=== PATIENT | female | born 1945 | race American Indian/Alaskan Native ===

== ENCOUNTER 2016-07-18 21:08 | Inpatient (IN) | payer MEDICARE ==
--- NOTE | 2016-07-18 21:28 | Emergency Department Report ---
Chief Complaint: Wound/Laceration Stated Complaint: BLEEDING FROM PORT Time Seen by Provider: 07/18/16 21:25 - HPI History of Present Illness: 71-year-old female presents today with excessive bleeding/bruising from her vascath site. Patient states that she had it put in today and it was attempted 3 times, she is bleeding from all 3 sites. Patient is currently on heparin. She states the bleeding started post dialysis treatment. Denies nausea, vomiting, chest pain, shortness of breath, abdominal pain. - ROS Review of Systems: Per HPI - Exam Vital Signs: Vital Signs 07/18/16 21:29 Temperature 98.6 F Pulse Rate 90 Respiratory 20 Rate Blood Pressure 132/70 O2 Sat by Pulse 99 Oximetry Physical Exam: General: 71-year-old female in no acute distress. Well-developed, well- nourished. CV: Regular rate and rhythm. No murmurs rubs or gallops. Lungs: Clear to auscultation bilaterally. Bleeding from the vascath site as well as other sites where port insertion was attempted. MSE screening note: Focused history and physical exam performed. Due to findings the following was ordered: ED Disposition for MSE Condition: Stable
[2016-07-18 21:52] LABS: Basophils % (Auto) 1.3 % (0.0-1.8); Eosinophils % (Auto) 2.2 % (0.0-4.3); Hematocrit 27.8 % (30.3-42.9); Hemoglobin 9.1 gm/dl (10.1-14.3); Mean Corpuscular HGB Conc 33 % (30-34); Mean Corpuscular Volume 73 fl (79-97); Platelet Count 223 K/mm3 (140-440); Red Blood Count 3.82 M/mm3 (3.65-5.03); White Blood Count 7.8 K/mm3 (4.5-11.0)
[2016-07-18 21:54] LABS: Mean Corpuscular Hemoglobin 24 pg (28-32)
[2016-07-18 21:59] LABS: INR 1.3 (0.87-1.13)
--- NOTE | 2016-07-18 22:22 | Emergency Department Report ---
HPI - General Chief Complaint: Wound/Laceration Time Seen by Provider: 07/18/16 21:25 - HPI HPI: This is a 71-year-old Afro-[place] female presents emergency department from hemodialysis with complaint of bleeding from the Vas-Cath and chest. The patient has a chest port that was placed today and previously had a port higher up in the neck that was removed today. Patient had full dialysis but began bleeding from both of these areas and has been bleeding since despite allegedly holding pressure. The patient is on heparin. She denies any chest pain, shortness breath, nausea, vomiting or fever. She has a history of insulin dependent diabetes, hypertension, chronic kidney disease on hemodialysis and coronary artery disease with stents. Her primary care doctor is Dr. Greg Newby, her beauty therapist is Dr. Beaver and her research program intern is through [place]. ED Past Medical Hx - Past Medical History Hx Hypertension: Yes Hx Diabetes: Yes Hx Renal Disease: Yes (vascath right cw,HD) Additional medical history: stents,pacemaker - Surgical History Hx Pacemaker: Yes - Social History Smoking Status: Never Smoker Substance Use Type: None ED Review of Systems ROS: Stated complaint: BLEEDING FROM PORT Other details as noted in HPI Comment: All other systems reviewed and negative Constitutional: denies: chills, fever Eyes: denies: eye pain, eye discharge, vision change ENT: denies: ear pain, throat pain Respiratory: denies: cough, shortness of breath, wheezing Cardiovascular: denies: chest pain, palpitations Gastrointestinal: denies: abdominal pain, nausea, diarrhea Genitourinary: denies: urgency, dysuria, discharge Musculoskeletal: denies: back pain, joint swelling, arthralgia Skin: denies: rash, lesions Neurological: denies: headache, weakness, paresthesias Hematological/Lymphatic: easy bleeding. denies: swollen glands Physical Exam - Physical Exam Vital Signs: Vital Signs 07/18/16 21:29 Temperature 98.6 F Pulse Rate 90 Respiratory 20 Rate Blood Pressure 132/70 O2 Sat by Pulse 99 Oximetry Physical Exam: GENERAL: The patient is well-developed well-nourished. HEENT: Normocephalic. Atraumatic. Extraocular motions are intact. Patient has moist mucous membranes. Pupils equal reactive to light bilaterally. NECK: Supple. Trachea is midline. CHEST/LUNGS: Clear to auscultation. There is no respiratory distress noted. There is a vascular catheter in the right upper chest. HEART/CARDIOVASCULAR: Regular. There is no tachycardia. There is no gallop rub or murmur. ABDOMEN: Abdomen is soft, nontender. Patient has normal bowel sounds. There is no abdominal distention. SKIN: There is a sutured incision/wound to the right upper chest at the base of the neck from previous tunneled IJ Vas-Cath and there is constant oozing of venous blood. There is some oozing of venous blood from around the chest vascular catheter. There is also a very small opening just superior to the vascular catheter that also has some venous oozing of blood. NEURO: The patient is awake, alert, and oriented. The patient is cooperative. The patient has no focal neurologic deficits. The patient has normal speech. MUSCULOSKELETAL: There is no tenderness or deformity. There is no limitation range of motion. There is no evidence of acute injury. ED Course Vital Signs 07/18/16 21:29 Temperature 98.6 F Pulse Rate 90 Respiratory 20 Rate Blood Pressure 132/70 O2 Sat by Pulse 99 Oximetry ED Medical Decision Making - Lab Data Result diagrams: 07/18/16 21:38 07/18/16 21:38 - Radiology Data Radiology results: image reviewed interpreted by me: Chest x-ray did not show any acute process. Heart is normal shape and size. No effusions. No pneumothorax. No signs of pneumonia seen. - Medical Decision Making 71-year-old female presents the emergency department with bleeding from 2-3 different sites of the chest, including around her current chest port, and her previous Vas-Cath that was removed today. This been going on since the patient had dialysis earlier in the afternoon. Patient's hemoglobin is 9.1. Patient has a elevated PTT of 157. The patient received a dose of heparin earlier today. The patient is also on aspirin and Effient but has normal platelet count. She is not on any other blood thinners. It is unknown whether it was the heparin given prior to dialysis or heparin that was given after the Vas- Cath was placed. The Vas-Cath was placed by a vascular physician at the access Center. We tried stopping the bleeding by holding pressure for close to one hour however it still continues to use and so through the pads. Patient was given a 20 mg dose of heparin which was done assuming that it was a 2-3000 unit dose of heparin given for dialysis. When this did not work the patient had hemostat pad placed under an abdominal pad and a second 30 mg dose heparin was infused. Patient continues to have oozing of blood and will be admitted to hospital for further evaluation and possibly vascular consultation. Accepted for admission by the hospitalist. Critical Care Time: No Critical care attestation.: If time is entered above; I have spent that time in minutes in the direct care of this critically ill patient, excluding procedure time. ED Disposition Clinical Impression: ESRD on hemodialysis Heparin overdose Qualifiers: Encounter type: initial encounter Injury intent: accidental or unintentional Qualified Code(s): T45.511A - Poisoning by anticoagulants, accidental ( unintentional), initial encounter Hemorrhage due to vascular catheter Qualifiers: Encounter type: initial encounter Qualified Code(s): T82.838A - Hemorrhage due to vascular prosthetic devices, implants and grafts, initial encounter Anemia Qualifiers: Anemia type: unspecified type Qualified Code(s): D64.9 - Anemia, unspecified Disposition: OP ADMITTED IP TO THIS HOSP Is pt being admited?: Yes Does the pt Need Aspirin: No Condition: Stable Referrals: GREG NEWBY MD [Primary Care Provider] - 3-5 Days
[2016-07-18 23:29] LABS: BUN/Creatinine Ratio 3.92; Calcium 8.8 mg/dL (8.4-10.2)
[2016-07-18] MEDS ORDERED: PROTAMINE SULFATE IV ONE (23:46)
[2016-07-18] MEDS ORDERED: NACL 0.9% IV ONE (23:46)
[2016-07-18 23:59] LABS: Chloride 95.3 mmol/L (98-107); Potassium 3.8 mmol/L (3.6-5.0)
[2016-07-19] MEDS ORDERED: PROTAMINE SULFATE IV ONE (01:02)
[2016-07-19] MEDS ORDERED: NACL 0.9% IV ONE (01:02)
--- NOTE | 2016-07-19 02:17 | History and Physical Report ---
History of Present Illness Chief complaint: I was told to come here History of present illness: 71 YO Female with Medications and Allergies Allergies Allergy/AdvReac Type Severity Reaction Status Date / Time No Known Allergies Allergy Verified 07/18/16 23:52 Exam - Constitutional Vitals: Temp Pulse Resp BP Pulse Ox 98.6 F 74 21 134/56 98 07/18/16 21:29 07/19/16 00:56 07/19/16 00:56 07/19/16 00:56 07/19/16 00:56 Results - Labs CBC & Chem 7: 07/18/16 21:38 07/18/16 21:38 Labs: Abnormal lab results 07/18/16 07/18/16 07/18/16 Range/Units 21:38 21:38 21:38 Hgb 9.1 L (10.1-14.3) gm/dl Hct 27.8 L (30.3-42.9) % MCV 73 L (79-97) fl MCH 24 L (28-32) pg RDW 20.0 H (13.2-15.2) % [place] % (Auto) 8.0 H (0.0-7.3) % PT 16.1 H (12.2-14.9) Sec. INR 1.30 H (0.87-1.13) APTT 157.0 H* (24.2-36.6) Sec. Chloride 95.3 L (98-107) mmol/L Creatinine 2.8 H (0.7-1.2) mg/dL Glucose 118 H (65-100) mg/dL
[2016-07-19] MEDS ORDERED: ZOFRAN IV PRN (02:32)
[2016-07-19] MEDS ORDERED: DULCOLAX PR PRN (02:32)
[2016-07-19] MEDS ORDERED: TYLENOL PO PRN (02:32)
[2016-07-19] MEDS ORDERED: MILK OF MAGNESIA PO PRN (02:32)
--- NOTE | 2016-07-19 05:12 | History and Physical Report ---
History of Present Illness Date of admission: 07/19/16 02:32 History of present illness: 71 YO Female with HTN, DM, ESRD presents to ED for evaluation. Pt states that she was undergoing dialysis today and experienced bleeding from her vas cath site. Pt was instructed to present to ED for evaluation. Pt denies fever, chills , CP, Palpitations, NVD, Syncope, Vertigo, recent ill contacts, skin rashes, BRBPR, trauma, unintentional weight loss, or night sweats. Past History Past Medical History: diabetes, ESRD, hypertension Past Surgical History: Other (VAs cath, Pacemeker, ) Social history: , lives with family. denies: smoking, alcohol abuse, prescription drug abuse Family history: diabetes, hypertension Medications and Allergies Allergies Allergy/AdvReac Type Severity Reaction Status Date / Time No Known Allergies Allergy Verified 07/18/16 23:52 Active Meds: Active Medications Acetaminophen (Tylenol) 650 mg PO Q4H PRN PRN Reason: Pain MILD(1-3)/Fever >100.5/OCONNELL Bisacodyl (Dulcolax) 10 mg [place] QDAY PRN PRN Reason: Constipation unrelieved by MOM Magnesium Hydroxide (Milk Of Magnesia) 30 ml PO Q4H PRN PRN Reason: Constipation Ondansetron HCl (Zofran) 4 mg IV Q8H PRN PRN Reason: N/V unrelieved by Reglan Review of Systems All systems: negative Constitutional: other (bleeding) Exam - Constitutional Vitals: Temp Pulse Resp BP Pulse Ox 98.6 F 78 20 145/57 99 07/18/16 21:29 07/19/16 04:48 07/19/16 04:48 07/19/16 03:00 07/19/16 04:48 General appearance: Present: other - EENT Eyes: Present: PERRL ENT: hearing intact, clear oral mucosa - Neck Neck: Present: supple, normal ROM - Respiratory Respiratory effort: normal Respiratory: bilateral: CTA - Cardiovascular Heart Sounds: Present: S1 & S2. Absent: rub, click - Extremities Extremities: pulses symmetrical, No edema Peripheral Pulses: within normal limits - Abdominal General gastrointestinal: Present: soft, non-tender, non-distended, normal bowel sounds Female genitourinary: Present: normal - Integumentary Integumentary: Present: clear, warm, dry - Musculoskeletal Musculoskeletal: gait normal, strength equal bilaterally - Psychiatric Psychiatric: appropriate mood/affect, intact judgment & insight - Neurologic Neurologic: CNII-XII intact, moves all extremities Results - Labs CBC & Chem 7: 07/18/16 21:38 07/18/16 21:38 Assessment and Plan - Patient Problems (1) Symptomatic anemia Current Visit: Yes Status: Acute Plan to address problem: Monitor HGB, supportive care, transfuse PRBC if clinically indicated. (2) Hemorrhage due to vascular catheter Current Visit: Yes Status: Acute Qualifiers: Encounter type: initial encounter Qualified Code(s): T82.838A - Hemorrhage due to vascular prosthetic devices, implants and grafts, initial encounter Plan to address problem: pressure dressing to catheter site, serial hgb, supportive care, (3) Anemia Current Visit: Yes Status: Acute Qualifiers: Anemia type: unspecified type Iron deficiency anemia type: I Vitamin B12 deficiency anemia type: V Folate deficiency anemia type: F Bone marrow failure anemia type: B Hemolytic anemia type: H Other causes of anemia: O Qualified Code(s): D64.9 - Anemia, unspecified Plan to address problem: Secondary to blood loss: supportive care, serial hgb, transfuse prbc as clinically indicated. (4) ESRD on hemodialysis Current Visit: Yes Status: Acute Plan to address problem: dialysis as per nephrology service. (5) Heparin overdose Current Visit: Yes Status: Acute Qualifiers: Encounter type: initial encounter Injury intent: accidental or unintentional Qualified Code(s): T45.511A - Poisoning by anticoagulants, accidental (unintentional), initial encounter Plan to address problem: protamine given in ED, supportive care, (6) DVT prophylaxis Current Visit: Yes Status: Acute
--- NOTE | 2016-07-19 10:37 | XRay Report ---
AP CHEST : 07/18/16 21:08:00 CLINICAL: Bleeding from chest ports. COMPARISON:None FINDINGS: Cardiomegaly and pacer leads in heart. Mild central vascular congestion.A right Vas-Cath tip is in the right atrium. No airspace disease or pleural effusion. The bones and soft tissues are unremarkable. IMPRESSION: Cardiomegaly and pulmonary venous hypertension. No pulmonary edema.The right Vas-Cath appears to be in satisfactory position.
[2016-07-19 14:12] LABS: Hematocrit 22.7 % (30.3-42.9); Hemoglobin 7.6 gm/dl (10.1-14.3); Mean Corpuscular HGB Conc 33 % (30-34); Mean Corpuscular Hemoglobin 25 pg (28-32); Mean Corpuscular Volume 74 fl (79-97); Platelet Count 190 K/mm3 (140-440); Red Blood Count 3.06 M/mm3 (3.65-5.03); Red Cell Distribution Width 20.6 % (13.2-15.2); White Blood Count 6.9 K/mm3 (4.5-11.0)
--- NOTE | 2016-07-19 14:37 | Consultation ---
History of Present Illness - Reason for Consult Consult date: 07/19/16 end stage renal disease Requesting physician: ARMOND BRISCOE - History of Present Illness 71-year-old lady with end-stage renal disease was recently started on dialysis. Patient had permacath changed yesterday. She went to dialysis thereafter and apparently received some heparin. Presented to the emergency room on account of bleeding from the right chest permacath site. Bleeding did not stop despite pressure application and so she was admitted for further management. I spoke with the ER physician last night and PTT was elevated and so patient received protamine. On evaluating patient on the floor now, she still has bloodstained dressing over the permacath site. I spoke to nurse and she change the dressing about 4 hours ago. It was doing fine until patient walked to the bathroom and on getting back bleeding restarted. She denies any dizziness or shortness of breath. Past History Past Medical History: diabetes, ESRD, hypertension Past Surgical History: Other (VAs cath, Pacemaker, eye surgery for glaucoma) Social history: , lives with family. denies: smoking, alcohol abuse, prescription drug abuse Family history: diabetes (one brother of complications of type 2 diabetes mellitus), hypertension, stroke (parents of strokes, mother in her 60s not sure father's age at ) Medications and Allergies Allergies Allergy/AdvReac Type Severity Reaction Status Date / Time No Known Allergies Allergy Verified 07/18/16 23:52 Active Meds: Active Medications Acetaminophen (Tylenol) 650 mg PO Q4H PRN PRN Reason: Pain MILD(1-3)/Fever >100.5/OCONNELL Bisacodyl (Dulcolax) 10 mg [place] QDAY PRN PRN Reason: Constipation unrelieved by MOM Magnesium Hydroxide (Milk Of Magnesia) 30 ml PO Q4H PRN PRN Reason: Constipation Ondansetron HCl (Zofran) 4 mg IV Q8H PRN PRN Reason: N/V unrelieved by Reglan Review of Systems All systems: negative (Constitutional: no fever or chills. No anorexia or weight loss. HEENT: No sore throat or sinus drainage no hearing or vision impairment . Cardiovascular: No chest pain, shortness of breath, palpitations, lower extremity swelling or dizziness. Respiratory: Admits to cough productive of whitish sputum, shortness of breath, hemoptysis or wheezing. Gastrointestinal: No nausea, vomiting, diarrhea, abdominal pain, hematemesis or melena. Genitourinary: No frequency urgency dysuria or hematuria. hematologic: Has prolonged bleeding from permacath site. No easy Bruising. Integumentary: no pruritus or rash. Neurological: Admits to occasional headache no focal weakness or numbness, no syncope or seizures. Musculoskeletal: No joint pains no stiffness. Psychiatry: no anxiety sometimes feels depressed) Exam - Vital Signs Vital signs: Vital Signs Temp Pulse Resp BP Pulse Ox 98.6 F 90 20 132/70 99 07/18/16 21:29 07/18/16 21:29 07/18/16 21:29 07/18/16 21:29 07/18/16 21:29 - Physical Exam Narrative exam: Elderly -[place] female lying in bed in no acute distress HEENT normocephalic atraumatic, pupils equal reactive to light, pink, clear oropharynx Neck supple, no thyromegaly no jugular venous distention CVS S1-S2 regular rate rhythm without murmur, rub or gallop Chest bloodstained dressing over permacath site on the right chest. Sandbag intact, Clear to auscultation Abdomen soft nondistended nontender no organomegaly no bruit bowel sounds present Extremities no edema no cyanosis or clubbing Genitourinary deferred Neuro awake, alert oriented x3 no gross deficit Results - Lab Results 07/19/16 13:20 07/18/16 21:38 Most recent lab results Calcium 8.8 mg/dL (8.4-10.2) 07/18/16 21:38 Assessment and Plan - Patient Problems (1) Hemorrhage due to vascular catheter Current Visit: Yes Status: Acute Qualifiers: Encounter type: initial encounter Qualified Code(s): T82.838A - Hemorrhage due to vascular prosthetic devices, implants and grafts, initial encounter Plan to address problem: Patient still bleeding from permacath site. Repeat PT/INR/PTT. We'll give a dose of DDAVP. Will discuss with vascular surgery who has been consulted to evaluate patient. (2) ESRD on hemodialysis Current Visit: Yes Status: Acute Plan to address problem: Patient had hemodialysis yesterday and renal indices are stable and electrolytes and volume status also stable. (3) Anemia Current Visit: Yes Status: Acute Qualifiers: Anemia type: unspecified type Iron deficiency anemia type: I Vitamin B12 deficiency anemia type: V Folate deficiency anemia type: F Bone marrow failure anemia type: B Hemolytic anemia type: H Other causes of anemia: O Qualified Code(s): D64.9 - Anemia, unspecified Plan to address problem: Hemoglobin and hematocrit repeated and it has dropped to 7.4 g/dL. With ongoing bleeding, we'll transfuse patient's 2 units of packed red blood cells. (4) Type 2 diabetes mellitus with diabetic chronic kidney disease Current Visit: Yes Status: Acute Qualifiers: Diabetes mellitus intermediate insulin use: D Chronic kidney disease stage: C Plan to address problem: Blood sugar management by primary attending (5) Hypertensive chronic kidney disease with stage 5 chronic kidney disease or end stage renal disease Current Visit: Yes Status: Acute Plan to address problem: Follow-up blood pressure on current medications
[2016-07-19] MEDS ORDERED: NACL 0.9% 500 ML 500 ML IV ONE (14:49)
[2016-07-19 15:55] LABS: INR 1.32 (0.87-1.13)
[2016-07-19 15:56] LABS: Partial Thromboplastin Time 35.7 Sec. (24.2-36.6)
--- NOTE | 2016-07-19 15:58 | Progress Note ---
Hospitalist Physical - Constitutional Vitals: Temp Pulse Resp BP Pulse Ox 98.0 F 76 18 138/63 93 07/19/16 08:10 07/19/16 08:10 07/19/16 08:10 07/19/16 08:10 07/19/16 10:00 General appearance: Present: other Results - Labs CBC & Chem 7: 07/19/16 13:20 07/18/16 21:38 Labs: Laboratory Last Values WBC 6.9 K/mm3 (4.5-11.0) 07/19/16 13:20 RBC 3.06 M/mm3 (3.65-5.03) L 07/19/16 13:20 Hgb 7.6 gm/dl (10.1-14.3) L 07/19/16 13:20 Hct 22.7 % (30.3-42.9) L 07/19/16 13:20 MCV 74 fl (79-97) L 07/19/16 13:20 MCH 25 pg (28-32) L 07/19/16 13:20 MCHC 33 % (30-34) 07/19/16 13:20 RDW 20.6 % (13.2-15.2) H 07/19/16 13:20 Plt Count 190 K/mm3 (140-440) 07/19/16 13:20 Lymph % (Auto) 18.8 % (13.4-35.0) 07/18/16 21:38 [place] % (Auto) 8.0 % (0.0-7.3) H 07/18/16 21:38 Eos % (Auto) 2.2 % (0.0-4.3) 07/18/16 21:38 Baso % (Auto) 1.3 % (0.0-1.8) 07/18/16 21:38 Lymph # 1.5 K/mm3 (1.2-5.4) 07/18/16 21:38 [place] # 0.6 K/mm3 (0.0-0.8) 07/18/16 21:38 Eos # 0.2 K/mm3 (0.0-0.4) 07/18/16 21:38 Baso # 0.1 K/mm3 (0.0-0.1) 07/18/16 21:38 Seg Neutrophils % 69.7 % (40.0-70.0) 07/18/16 21:38 Seg Neutrophils # 5.4 K/mm3 (1.8-7.7) 07/18/16 21:38 PT 16.3 Sec. (12.2-14.9) H 07/19/16 15:16 INR 1.32 (0.87-1.13) H 07/19/16 15:16 APTT 35.7 Sec. (24.2-36.6) 07/19/16 15:16 Sodium 140 mmol/L (137-145) 07/18/16 21:38 Potassium 3.8 mmol/L (3.6-5.0) 07/18/16 21:38 Chloride 95.3 mmol/L (98-107) L 07/18/16 21:38 Carbon Dioxide 28 mmol/L (22-30) 07/18/16 21:38 Anion Gap 21 mmol/L 07/18/16 21:38 BUN 11 mg/dL (7-17) 07/18/16 21:38 Creatinine 2.8 mg/dL (0.7-1.2) H 07/18/16 21:38 Estimated GFR 20 ml/min 07/18/16 21:38 BUN/Creatinine Ratio 3.92 % 07/18/16 21:38 Glucose 118 mg/dL (65-100) H 07/18/16 21:38 POC Glucose 221 (70-105) H 07/19/16 11:44 Calcium 8.8 mg/dL (8.4-10.2) 07/18/16 21:38 Blood Type A POSITIVE 07/19/16 15:22 Crossmatch See Detail 07/19/16 15:22
[2016-07-19] MEDS ORDERED: XYLOCAINE 1% 20 mL ONE (16:55)
--- NOTE | 2016-07-19 17:22 | Event Note ---
Date: 07/19/16 71-year-old female with bleeding at the PermCath site. Dressing was removed and the tunnel site was evaluated. There was noted active oozing at the separate site along the distal part of The That Has Small Incision. Pressure Was Held for about 10 Minutes and Bleeding Stopped. There Was No Bleeding Noted from Catheter Entrance Site That Had Stitches or Exit Site. Bleeding Site Was Prepped with Betadine Prep Swabs and Anesthetized with 1% Lidocaine. 4-0 nylon figure of 8 stitch was placed to prevent further bleeding from the separate stab site. Site was then prepped again, sterile dressing was applied, covered with Tegaderm. No more bleeding was noted.
[2016-07-19] MEDS ORDERED: DDAVP IV PRN (18:22)
[2016-07-19] MEDS ORDERED: NACL 0.9% IV PRN (18:22)
[2016-07-19] MEDS ORDERED: XYLOCAINE 1% 20 mL INFILTRATI ONE (18:47)
[2016-07-19 22:37] LABS: Hemoglobin 7.1 gm/dl (10.1-14.3)
[2016-07-20 07:22] LABS: BUN/Creatinine Ratio 5.65; Calcium 8.7 mg/dL (8.4-10.2); Chloride 98.2 mmol/L (98-107)
[2016-07-20 08:31] LABS: Mean Corpuscular HGB Conc 33 % (30-34); Mean Corpuscular Volume 77 fl (79-97); Platelet Count 165 K/mm3 (140-440); Red Blood Count 3.49 M/mm3 (3.65-5.03); White Blood Count 8.2 K/mm3 (4.5-11.0)
[2016-07-20 08:38] LABS: Mean Corpuscular Hemoglobin 26 pg (28-32); Red Cell Distribution Width 22.1 % (13.2-15.2)
[2016-07-20] MEDS: NOVOLOG SUB-Q SCH ×4 (08:52→23:47)
[2016-07-20 09:51] LABS: Potassium 4.3 mmol/L (3.6-5.0)
--- NOTE | 2016-07-20 15:06 | Progress Note ---
Assessment and Plan - Patient Problems (1) Hemorrhage due to vascular catheter Current Visit: Yes Status: Acute Qualifiers: Encounter type: initial encounter Qualified Code(s): T82.838A - Hemorrhage due to vascular prosthetic devices, implants and grafts, initial encounter Plan to address problem: Bleeding has resolved. We'll observe overnight. (2) ESRD on hemodialysis Current Visit: Yes Status: Acute Plan to address problem: Hemodialysis in the morning. (3) Anemia Current Visit: Yes Status: Acute Qualifiers: Anemia type: unspecified type Iron deficiency anemia type: I Vitamin B12 deficiency anemia type: V Folate deficiency anemia type: F Bone marrow failure anemia type: B Hemolytic anemia type: H Other causes of anemia: O Qualified Code(s): D64.9 - Anemia, unspecified Plan to address problem: Hemoglobin and hematocrit improved posttransfusion (4) Type 2 diabetes mellitus with diabetic chronic kidney disease Current Visit: Yes Status: Acute Qualifiers: Diabetes mellitus prison insulin use: D Chronic kidney disease stage: C Plan to address problem: Blood sugar management by primary attending (5) Hypertensive chronic kidney disease with stage 5 chronic kidney disease or end stage renal disease Current Visit: Yes Status: Acute Plan to address problem: Follow-up blood pressure on current medications Subjective Date of service: 07/20/16 Principal diagnosis: end-stage renal disease, bleeding from permacath site Interval history: Patient seen lying in bed. She is feeling better. Bleeding has subsided. No nausea or vomiting Objective - Exam Narrative Exam: Elderly -[place]ian female lying in bed in no acute distress CVS S1-S2 regular rate rhythm without murmur, rub or gallop Chest pain, dry dressing over permacath site on the right chest. Clear to auscultation Abdomen soft nondistended nontender no organomegaly no bruit bowel sounds present Extremities no edema no cyanosis or clubbing Neuro awake, alert oriented x3 no gross deficit - Vital Signs Vital signs: Vital Signs - 12hr 07/20/16 07/20/16 07/20/16 03:22 03:37 04:07 Temperature 98 F 98.4 F 98 F Pulse Rate 84 80 77 Pulse Rate [ Left Radial] Respiratory 20 18 20 Rate Blood Pressure 133/83 135/64 159/65 Blood Pressure [Left Arm] O2 Sat by Pulse 96 96 98 Oximetry 07/20/16 07/20/16 07/20/16 04:30 04:37 05:07 Temperature 98.1 F 98 F 98.2 F Pulse Rate 76 76 Pulse Rate [ 71 Left Radial] Respiratory 18 18 18 Rate Blood Pressure 165/72 140/64 Blood Pressure 134/62 [Left Arm] O2 Sat by Pulse 100 96 98 Oximetry 07/20/16 08:15 Temperature 98.2 F Pulse Rate Pulse Rate [ 84 Left Radial] Respiratory 20 Rate Blood Pressure Blood Pressure 127/63 [Left Arm] O2 Sat by Pulse 99 Oximetry - Lab 07/20/16 07:46 07/20/16 06:22 Most recent lab results Calcium 8.7 mg/dL (8.4-10.2) 07/20/16 06:22
[2016-07-20] MEDS ORDERED: HEPARIN IV PRN (15:07)
[2016-07-20] MEDS ORDERED: NACL 0.9% 100 ML IV PRN (15:10)
[2016-07-20] MEDS ORDERED: PERCOCET 5/325 PO PRN (20:17)
[2016-07-20] MEDS ORDERED: ZOCOR PO SCH (22:00)
[2016-07-20] MEDS: VITAMIN B-12 PO SCH (22:09)
[2016-07-20] MEDS: PROTONIX PO SCH (22:11)
[2016-07-20] MEDS: LOPRESSOR PO SCH (22:11)
[2016-07-20] MEDS: EFFIENT PO SCH (22:44)
--- NOTE | 2016-07-20 22:47 | Progress Note ---
Assessment and Plan Assessment and plan: 1. Bleeding at permacth site 2. Anemia Anemia of acute blood loss superimposed on anemia of chronic disease 3. Accidental heparin overdose S/p Protamine 4. ESRD on HD HTN DM History Interval history: s/p PRBC transfusion yesterday, then suture for permacath site by vasc surgery; pressure applied and bleeding stopped Hospitalist Physical - Constitutional Vitals: Temp Pulse Resp BP Pulse Ox 98.3 F 74 22 145/62 100 07/20/16 21:07 07/20/16 22:11 07/20/16 21:07 07/20/16 22:11 07/20/16 21:07 General appearance: Present: other Results - Labs CBC & Chem 7: 07/20/16 07:46 07/20/16 06:22 Labs: Laboratory Last Values WBC 8.2 K/mm3 (4.5-11.0) 07/20/16 07:46 RBC 3.49 M/mm3 (3.65-5.03) L 07/20/16 07:46 Hgb 9.0 gm/dl (10.1-14.3) L 07/20/16 07:46 Hct 27.0 % (30.3-42.9) L D 07/20/16 07:46 MCV 77 fl (79-97) L D 07/20/16 07:46 MCH 26 pg (28-32) L 07/20/16 07:46 MCHC 33 % (30-34) 07/20/16 07:46 RDW 22.1 % (13.2-15.2) H 07/20/16 07:46 Plt Count 165 K/mm3 (140-440) 07/20/16 07:46 Lymph % (Auto) Laborer Syrup Machine 07/20/16 07:46 [place] % (Auto) Laborer Syrup Machine 07/20/16 07:46 Eos % (Auto) Laborer Syrup Machine 07/20/16 07:46 Baso % (Auto) Laborer Syrup Machine 07/20/16 07:46 Lymph # Laborer [employer]rup Machine 07/20/16 07:46 [place] # Laborer [employer]rup Machine 07/20/16 07:46 Eos # Laborer Syrup Machine 07/20/16 07:46 Baso # Laborer Syrup Machine 07/20/16 07:46 Seg Neutrophils % Laborer [employer] Machine 07/20/16 07:46 Seg Neutrophils # Laborer Syrup Machine 07/20/16 07:46 PT 16.3 Sec. (12.2-14.9) H 07/19/16 15:16 INR 1.32 (0.87-1.13) H 07/19/16 15:16 APTT 35.7 Sec. (24.2-36.6) 07/19/16 15:16 Sodium 141 mmol/L (137-145) 07/20/16 06:22 Potassium 4.3 mmol/L (3.6-5.0) 07/20/16 06:22 Chloride 98.2 mmol/L (98-107) 07/20/16 06:22 Carbon Dioxide 26 mmol/L (22-30) 07/20/16 06:22 Anion Gap 21 mmol/L 07/20/16 06:22 BUN 26 mg/dL (7-17) H 07/20/16 06:22 Creatinine 4.6 mg/dL (0.7-1.2) H D 07/20/16 06:22 Estimated GFR 11 ml/min 07/20/16 06:22 BUN/Creatinine Ratio 5.65 % 07/20/16 06:22 Glucose 211 mg/dL (65-100) H 07/20/16 06:22 POC Glucose 192 (70-105) H 07/20/16 22:11 Calcium 8.7 mg/dL (8.4-10.2) 07/20/16 06:22 Blood Type A POSITIVE 07/19/16 15:22 Antibody Screen Negative 07/19/16 15:22 Crossmatch See Detail 07/19/16 15:22
[2016-07-21 05:13] LABS: Mean Corpuscular HGB Conc 33 % (30-34); Mean Corpuscular Hemoglobin 27 pg (28-32); Mean Corpuscular Volume 80 fl (79-97); Platelet Count 188 K/mm3 (140-440); Red Blood Count 3.38 M/mm3 (3.65-5.03); White Blood Count 8.4 K/mm3 (4.5-11.0)
[2016-07-21 05:23] LABS: BUN/Creatinine Ratio 6.4; Calcium 8.8 mg/dL (8.4-10.2); Chloride 99.1 mmol/L (98-107); Potassium 4.2 mmol/L (3.6-5.0)
[2016-07-21 05:37] LABS: Red Cell Distribution Width 21.9 % (13.2-15.2)
[2016-07-21] MEDS: NOVOLOG SUB-Q SCH ×2 (07:30→12:39)
[2016-07-21] MEDS ORDERED: GLUCOTROL PO SCH (08:00)
--- NOTE | 2016-07-21 09:31 | Discharge Summary ---
Providers - Providers Date of Admission: 07/19/16 02:32 Date of discharge: 07/21/16 Attending physician: ARMOND BRISCOE 07/19/16 11:05 Consult to Physician [CONS] Urgent Consulting Provider: JACKIE HUFF Reason For Exam: vasc cath site bleeding Place consult to:: DR. KELLEY Notified:: ANSWERING SERVICES Phone number called:: [phone] Was contact made?: Yes If yes, spoke with:: YORDY Time called:: 11:59 Comment:: DIPESH WHITLOCK 07/19/16 11:06 Consult to Physician [CONS] Routine Consulting Provider: ANGEL HOWE Reason For Exam: ESRD HD Place consult to:: Dr. Howe Notified:: ANSWERING SERVICES Phone number called:: [phone] Was contact made?: Yes If yes, spoke with:: ABEBA Time called:: 12:00 Comment:: DIPESH NOTIFIED Primary care physician: STEPAN NEWBY Hospitalization Reason for admission: bleeding at permacath site Condition: Stable Disposition: DISCHARGED TO HOME OR SELFCARE Time spent for discharge: 35 min Core Measure Documentation - Palliative Care Palliative Care/ Comfort Measures: Not Applicable - Core Measures Any of the following diagnoses?: none Exam - Physical Exam Narrative exam: Patient seen and examined; - Constitutional Vitals: Temp Pulse Resp BP Pulse Ox 98.2 F 78 18 144/68 98 07/21/16 08:00 07/21/16 08:00 07/21/16 08:00 07/21/16 08:00 07/21/16 08:00 General appearance: Present: no acute distress, obese - EENT Eyes: Present: PERRL, EOM intact. Absent: scleral icterus, conjunctival injection - Neck Neck: Present: supple, normal ROM. Absent: masses or JVD - Respiratory Respiratory effort: normal Respiratory: bilateral: CTA, negative: rales, rhonchi, wheezing - Cardiovascular Rhythm: regular Heart Sounds: Present: S1 & S2. Absent: systolic murmur - Extremities Extremities: no ischemia - Abdominal General gastrointestinal: Present: soft, non-tender, non-distended, normal bowel sounds - Integumentary Integumentary: Present: warm, dry. Absent: jaundice, rash - Musculoskeletal Musculoskeletal: strength equal bilaterally - Psychiatric Psychiatric: cooperative - Neurologic Neurologic: CNII-XII intact, no focal deficits Plan Activity: advance as tolerated Diet: low cholesterol, low salt, diabetic, renal Additional Instructions: Follow up with your singeing torch operator and resume outpatient HD Follow up with: STEPAN NEWBY MD [Primary Care Provider] - 3-5 Days Pending Studies HD
--- NOTE | 2016-07-21 09:59 | Admit Criteria Form ---
Admission Criteria Documentation: HEMATOLOGY GRG Clinical Indications for Admission to Inpatient Care (Place 'X' for any and all applicable criteria): Hospital admission is needed for appropriate care of the patient because of ANY ONE of the following: [ ]I. Severe anemia indicated by ANY ONE of the following (1)(2) [ ]a) Altered mental status [ ]b) Syncope [ ]c) Other findings suggesting inadequate perfusion [ ]d) Chest pain [ ]e) Exertional dyspnea [ ]f) Treatment with transfusion or volume replacement is ineffective at resolving ANY ONE of the following [A]: [ ]i) Tachycardia for age [ ]ii) Orthostatic vital sign changes as indicated by ANY ONE of the following (3) [ ]1) Fall in SBP of 20 mm Hg or more 1 to 3 minutes after patient sits or stands from recumbent position [ ]2) Fall in DBP of 10 mm Hg or more 1 to 3 minutes after patient sits or stands from recumbent position [ ]II. High-risk febrile neutropenia [B] as indicated by ANY ONE of the following(4)(5) [ ]a) Hemodynamic instability [ ]b) Hypoxemia [ ]c) Tachypnea [ ]d) Altered mental status [ ]e) New onset abdominal pain [ ]f) New onset vomiting or diarrhea [ ]g) Pneumonia [ ]h) Profound neutropenia [C] anticipated to extend for more than 7 days [ ]i) Oral or gastrointestinal mucositis that interferes with swallowing or causes severe diarrhea [ ]j) Evidence of significant focal infection (eg, cellulitis, central line or catheter infection, perirectal abscess) [ ]k) Leukemia or lymphoma induction therapy [ ]l) Bone marrow transplant patient [ ]m) Renal insufficiency (eg, GFR of less than 30 mL/min/1.73m2 (0.5 mL/sec/1.73m2) [ ]n) Severe liver dysfunction (transaminase levels greater than 5 times normal) [ ]o) Platelet count less than 50,000/mm3 (50 x109/L)(6) [ ]p) Multinational Association for Supportive Care in Cancer (MASCC) Risk Index score of < 21 [D] [ ]III. High-risk low platelet count as indicated by ANY ONE of the following(8) (9) [ ]a) Severe or life-threatening bleeding (eg, intracranial, major gastrointestinal, or extensive mucosal bleeding), with any reduced platelet count [ ]b) Platelet count less than 20,000/mm3 (20 x109/L) with any active bleeding [ ]c) Platelet count less than 10,000/mm3 (10 x109/L) with minor purpura or petechiae [ ]d) Platelet count less than 5000/mm3 (5 x109/L) [ ]e) Low platelet count with hemolytic anemia [ ]IV.Active hemolysis with high-risk findings, including ANY ONE of the following(2)(10)(11) [ ]a) Hematocrit less than 25% (0.25) [ ]b) Rapidly progressing anemia [ ]c) Thrombocytopenia(12)(13) [ ]d) Evidence of thrombosis or new renal insufficiency [ ]V. Bleeding disorder with high-risk features (eg, hemophilia, coagulopathy) as indicated by ANY ONE of the following (2)(14)(15) [ ]a) Central nervous system bleeding [ ]b) Retroperitoneal bleeding [ ]c) Retropharyngeal bleeding [ ]d) Gastrointestinal bleeding (22) [ ]e) Purpura [ ]f) Disseminated intravascular coagulation(23) [ ]g) Major trauma [ ]h) Deep laceration [ ]i) Head trauma [ ]j) Any trauma with internal hematoma (eg, retroperitoneal, ocular) [ ]k) Failed outpatient management [X]. Severe over-anticoagulation or high-risk situation as indicated by ANY ONE of the following(24)(25) [X]a) Active bleeding [ ]b) International normalized ratio 5 or greater and rapid reversal needed [ ]c) International normalized ratio 9 or greater [ ]VII. Congenital immunodeficiency states with severe morbidity as indicated by ANY ONE of the following(26)(27) [ ]a) Severe infection [ ]b) Bone marrow transplant needed (Also use Medical Oncology GRG) [ ]VIII. Hyperviscosity syndrome with high-risk indicators indicated by ANY ONE of the following (2)(28)(29)(30)(31) [ ]a) Polycythemia vera with hematocrit greater than 60% (0.60) [ ]b) Elevated platelet count associated with thrombosis, bleeding, or life-threatening organ dysfunction [ ]c) Severe signs or symptoms from elevated red cell, white cell, or protein levels, including ANY ONE of the following: [ ]i) Mental status change [ ]ii) Dyspnea [ ]iii) Chest x-ray infiltrate [ ]iv) Visual changes [ ]v) Retinal abnormalities [ ]vi) Neuromuscular symptoms [ ]vii) Suspected ischemia or thrombosis [ ]viii) Bleeding [ ]IX. Methemoglobinemia greater than 15% (0.15) or severe symptoms persist after emergency treatment (32)(33) [ ]X. Spleen trauma with blood loss or other need for acute (medical) treatment (34) [ ]XI. Hematology condition and ALL of the following: [ ]a) Symptom or finding for which emergency and observation care have failed or are not considered appropriate (Also use General Criteria: Observation Care as appropriate) [ ]b) Presence of ANY ONE of the following: [ ]i) A General Admission Criteria [ ]ii) A Pediatric General Admission Criteria The original [facility] [employer] content created by [facility] has been revised. The portions of the content which have been revised are identified through the use of italic text or in bold, and [facility] has neither reviewed nor approved the modified material. All other unmodified content is copyright [facility]. Please see references footnoted in the original [facility] edition 2016 Admission Criteria Met: Yes
[2016-07-21] MEDS: PROTONIX PO SCH (10:00)
[2016-07-21] MEDS: EFFIENT PO SCH (10:00)
[2016-07-21] MEDS: LOPRESSOR PO SCH (10:00)
[2016-07-21] MEDS: VITAMIN B-12 PO SCH (10:00)
--- NOTE | 2016-07-21 11:13 | Progress Note ---
Assessment and Plan - Patient Problems (1) Hemorrhage due to vascular catheter Current Visit: Yes Status: Acute Qualifiers: Encounter type: initial encounter Qualified Code(s): T82.838A - Hemorrhage due to vascular prosthetic devices, implants and grafts, initial encounter Plan to address problem: Bleeding has resolved. Okay to discharge from renal standpoint (2) ESRD on hemodialysis Current Visit: Yes Status: Acute Plan to address problem: Hemodialysis ongoing (3) Anemia Current Visit: Yes Status: Acute Qualifiers: Anemia type: unspecified type Iron deficiency anemia type: I Vitamin B12 deficiency anemia type: V Folate deficiency anemia type: F Bone marrow failure anemia type: B Hemolytic anemia type: H Other causes of anemia: O Qualified Code(s): D64.9 - Anemia, unspecified Plan to address problem: Hemoglobin and hematocrit improved posttransfusion (4) Type 2 diabetes mellitus with diabetic chronic kidney disease Current Visit: Yes Status: Acute Qualifiers: Diabetes mellitus buttermaker insulin use: D Chronic kidney disease stage: C Plan to address problem: Blood sugar management by primary attending (5) Hypertensive chronic kidney disease with stage 5 chronic kidney disease or end stage renal disease Current Visit: Yes Status: Acute Plan to address problem: Follow-up blood pressure on current medications Subjective Date of service: 07/21/16 Principal diagnosis: end-stage renal disease, bleeding from permacath site Interval history: Patient seen lying in bed on dialysis. Blood pressure 165/74 pulse 71 ultrafiltration 2.5 L every 350/700. She is feeling better. No further bleeding from permacath site. No nausea or vomiting Objective - Exam Narrative Exam: Elderly -[place] female lying in bed in no acute distress CVS S1-S2 regular rate rhythm without murmur, rub or gallop Chest pain, dry dressing over permacath site on the right chest. Clear to auscultation Abdomen soft nondistended nontender no organomegaly no bruit bowel sounds present Extremities no edema no cyanosis or clubbing Neuro awake, alert oriented x3 no gross deficit - Vital Signs Vital signs: Vital Signs - 12hr 07/21/16 07/21/16 07/21/16 00:01 03:59 08:00 Temperature 98.2 F 98.7 F 98.2 F Pulse Rate [ 67 69 78 Right Radial] Respiratory 18 18 18 Rate Blood Pressure 146/68 141/60 144/68 [Left Arm] O2 Sat by Pulse 97 98 98 Oximetry - Lab 07/21/16 04:32 07/21/16 04:32 Most recent lab results Calcium 8.8 mg/dL (8.4-10.2) 07/21/16 04:32
[2016-07-21] MEDS ORDERED: NACL 0.9 (PRIMING MACHINE ONLY DIALYSIS) MC ONE (12:39)
[2016-07-21 16:16] VITALS: BP 134/62
== END 2016-07-21 16:32 | disposition home or self-care (01) | DRG 917 ==
LOC: ED 21:08 → 3A 07-19 02:32
PROVIDERS: ADMIT Internal Medicine; ATTEND Internal Medicine
PROC: 02PAX3Z Removal of Infusion Device from Heart, External Approach (ICD-10-PCS; 2016-07-18)
PROC: 30233N1 Transfusion of Nonautologous Red Blood Cells into Peripheral Vein, Percutaneous Approach (ICD-10-PCS; principal; 2016-07-19)
DX: T45.511A Poisoning by anticoagulants, accidental (unintentional), initial encounter (principal); N18.6 End stage renal disease; T82.838A Hemorrhage due to vascular prosthetic devices, implants and grafts, initial encounter; I12.0 Hypertensive chronic kidney disease with stage 5 chronic kidney disease or end stage renal disease; D62 Acute posthemorrhagic anemia; D64.9 Anemia, unspecified; E11.22 Type 2 diabetes mellitus with diabetic chronic kidney disease; I25.10 Atherosclerotic heart disease of native coronary artery without angina pectoris; Y83.8 Other surgical procedures as the cause of abnormal reaction of the patient, or of later complication, without mention of misadventure at the time of the procedure; Y92.89 Other specified places as the place of occurrence of the external cause; Z83.3 Family history of diabetes mellitus; Z82.49 Family history of ischemic heart disease and other diseases of the circulatory system; Z82.3 Family history of stroke; Z95.5 Presence of coronary angioplasty implant and graft; Z95.0 Presence of cardiac pacemaker
CPT/HCPCS: 36415; 71010; 80048; 82962; 85014; 85018; 85025; 85027; 85610; 85730; 86850; 86900; 86901; 86920; 96365; A6021; J0885; J1644; J1815; J2720; J7030; J7040; P9016

== ENCOUNTER 2016-09-23 08:13 | Day surgery (SDC) | payer MEDICARE ==
--- NOTE | 2016-09-11 15:49 | Admit Criteria Form ---
Admission Criteria Documentation: AMBULATORY SURGERY EXCEPTION CRITERIA Ambulatory Surgery Exception Criteria ( Place 'X' for any and all applicable criteria): Surgery or procedure performed on ambulatory basis may require inpatient stay for[A] ANY ONE of the following(1)(2)(3)(4)(5)(6)(7)(8)(9): [X] I. A preoperative situation, condition, or finding that warrants inpatient stay as indicated by ANY ONE of the following: [] a) Inpatient care needed because of severity of a disease or condition rather than the surgery (eg, severe cardiac or respiratory disease, severe infection) (15) (16 ) (17) (18) [] b) Emergent procedure (eg, angioplasty for acute ischemia)(19) [] c) Complex surgical approach or situation as indicated by ANY ONE of the following(3): [] i) Open approach needed instead of usual endoscopic, transcatheter, or other less invasive procedure [] ii) Difficult approach because of previous operation [] iii) Airway monitoring required after open neck procedures(20)(21) [] iv) Large mass requiring unusually extensive dissection [] v) Additional complicating feature requiring inpatient care (eg, drain management)(22(23): [X] d) Major surgery in a pt with high anesthetic risk as indicated by ANY ONE of the following (2)(3)(5)(7)(8): [X] i) ASA risk class III or higher (severe systemic disease impairing function) [D] [] ii) Advanced age (eg, older than 85 years)(14)(24) [] iii) Symptomatic heart failure(25) [] iv) Symptomatic asthma or COPD(8)(21) [] v) Morbid obesity with hemodynamic or respiratory problems(20)( 21)(26)(27) [] vi) Obstructive sleep apnea(20)(21) [] vii) Former premature infants who are younger than 60 weeks [] viii) High risk for severe postoperative abnormalities (eg, severe postoperative hypocalcemia after parathyroidectomy for severe hyperparathyroidism)(27)( 28) [] ix) Unstable angina(25) [] e) Drug-related risk requiring inpatient stay as indicated by ANY ONE of the following(5)(10)(14)(32)(33) [] i) Procedure requires discontinuing drugs or other therapy (eg , antiarrhythmic medication, antiseizure medication), which necessitates inpatient observation or treatment.(18)(31) [] ii) Major surgery and high risk drug use as indicated by ANY ONE of the following: [] 1) Active abuse of cocaine or similar drug [] 2) Monoamine oxidase inhibitor use [] 3) Other drug identified as posing risk [] f) Inadequate outpatient care situation as indicated by ANY ONE of the following(5)(10)(14)(32)(33) [] i) Patient lives remote from medical facility and procedure has urgent complication potential, and temporary nearby residence cannot be arranged [] ii) Patient will have postprocedure incapacitation and inadequate assistance at home, or alternative level of care cannot be arranged. [] iii) Patient will have long general anesthesia or procedure side effect resolution time, and competent person to stay with patient on first postoperative night at home or alternative level of care cannot be arranged. []iv) Other inadequate outpatient situation that cannot be handled by other means [] II. A perioperative event, condition, or finding that warrants inpatient stay as indicated by ANY ONE of the following (1)(2)(3): [] a) Inadequate physiologic recovery: cardiovascular, respiratory, or hemodynamic status not normal or near preoperative baseline(18) [] b) Hemodynamic instability [] c) Patient not alert with near normal or baseline mental status [] d) Temperature not normal or as expected and not appropriate for outpatient treatment of condition [] e) Ambulatory or appropriate activity level status not yet achieved post procedure [E](34)(35)(36) [] f) Operative site not appropriate (eg, unexpected or excessive drainage or bleeding) [] g) Postoperative effects not resolved or adequately managed (eg, significant pain or vomiting not appropriate for outpatient or next level of care)(10)(12) [] h) Complicating features requiring inpatient care as indicated by ANY ONE of the following(37): [] i) Severe complications of procedure (eg, bowel injury, airway compromise, vascular injury,severe hemorrhage) [] ii) Extensive (eg, dissection far beyond usual scope of procedure ) or prolonged (eg, 120 minutes beyond usual) surgery needed requiring inpatient postoperative care [] iii) Conversion to an open or complex procedure that requires inpatient care (eg, open vs laparoscopic cholecystectomy, abdominal vs vaginal hysterectomy)(38) [] iv) Comorbid condition or test result identified during or post procedure that requires inpatient care (7) [] v) Malignant hyperthermia(30) [] vi) Other complicating feature requiring inpatient care(22)(23) Inpatient stay may be needed until ALL of the following are present (1)(2)(3)(4) (5)(6)(10)(14)(33)(40): []a) Physiologic recovery: cardiovascular, respiratory, and hemodynamic status normal or near preoperative baseline []b) Hemodynamic stability []c) Patient alert, with near normal or baseline mental status []d) Temperature appropriate: patient afebrile or temperature appropriate for outpt treatment of condition []e) Activity level appropriate: ambulatory or appropriate activity level post procedure []f) Operative site appropriate as indicated by ALL of the following: []i) Site dry or with expected drainage []ii) Any blood noted is as expected for procedure. []g) Postoperative effects resolved or managed as indicated by ALL of the following: []i) Pain management appropriate for outpatient (or next level of) care(10) []ii) Minimal nausea and vomiting: if present, successfully treated with oral medication(12) []iii) Headache, dizziness, or drowsiness (if present) are mild. []h) Voiding status acceptable as indicated by ANY ONE of the following: []i) Voiding spontaneously []ii) No voiding but instructions given for follow-up in 6 to 8 hours []iii) Urinary catheter in place, and instructions given for follow-up []i) Complicating features requiring inpatient care manageable at a lower level of care(37) []j) Comorbid conditions manageable at a lower level of care(37) The original [employer] content created by [employer] has been revised. The portions of the content which have been revised are identified through the use of italic text or in bold, and [employer] has neither reviewed nor approved the modified material. All other unmodified content is copyright [employer]. Please see references footnoted in the original [employer] edition 2016
[~2016-09-23 08:13] MED LIST: ANCEF/STERILE WATER 2 GM/20 ML 2 GM/20 ML SYRINGE IV NR; HEPARIN 10,000 UNITS/10 ML ONE; MARCAINE 0.5% INFILTRATI ONE; NACL 0.9% 1000 ML 1,000 ML IV SCH; NACL 0.9% 500 ML 500 ML ONE; XYLOCAINE 1%/ EPI 1:100,000 INFILTRATI ONE
[2016-09-23] MEDS ORDERED: DILAUDID IV PRN (08:25)
--- NOTE | 2016-09-23 08:33 | Anesthesia Consultation ---
Anesthesia Consult and Med Hx Date of service: 09/23/16 - Airway Anesthetic Teeth Evaluation: Poor ROM Head & Neck: Adequate Mental/Hyoid Distance: Adequate Mallampati Class: Class II Intubation Access Assessment: Probably Good (only two teeth in mouth, both loose ) - Pulmonary Exam CTA: Yes - Cardiac Exam Cardiac Exam: RRR - Pre-Operative Health Status ASA Pre-Surgery Classification: ASA4 Proposed Anesthetic Plan: MAC - Pulmonary Hx Smoking: No Hx Asthma: No Hx Sleep Apnea: No - Cardiovascular System Hx Hypertension: Yes (EF 55%) Hx Coronary Artery Disease: Yes Hx Pacemaker: Yes - Central Nervous System Hx Seizures: No CVA: No Hx Psychiatric Problems: No - Endocrine Hx Renal Disease: Yes (RIGHT VASCATH, HD YESTERDAY) Hx End Stage Renal Disease: Yes Hx Cirrhosis: No Hx Insulin Dependent Diabetes: Yes Hx Thyroid Disease: No Hx Hypothyroidism: No - Hematic Hx Anemia: Yes - Other Systems Hx Cancer: No Hx Obesity: Yes
--- NOTE | 2016-09-23 08:33 | Anesthesia Day of Surgery ---
Anesthesia Day of Surgery - Day of Surgery Patient Examined: Yes Patient H&P Reviewed: Yes Patient is NPO: Yes Beta Blockers: Yes
[2016-09-23] MEDS ORDERED: MARCAINE-EPI/PF 0.5%-1:200,000 INFILTRATI ONE (08:58)
[2016-09-23] MEDS ORDERED: XYLOCAINE 1% 20 mL ONE (08:58)
[2016-09-23] MEDS ORDERED: PEPCID PO NR (09:00)
[2016-09-23] MEDS ORDERED: VERSED IV NR (09:30)
[2016-09-23] MEDS ORDERED: SUBLIMAZE IV ONE (09:30)
[2016-09-23] MEDS ORDERED: DIPRIVAN 10 MG/ML IV ONE (09:54)
[2016-09-23] MEDS ORDERED: VERSED IV ONE (09:55)
[2016-09-23] MEDS ORDERED: ZOFRAN IV PRN (10:00)
[2016-09-23] MEDS ORDERED: XYLOCAINE MPF 2% ONE (10:06)
[2016-09-23] MEDS ORDERED: HEPARIN 10,000 UNITS/10 ML 2,000 UNIT in NACL 0.9% 500 ML 500 ML IR ONE (10:35)
[2016-09-23] MEDS ORDERED: NACL 0.9% IR ONE (10:41)
--- NOTE | 2016-09-23 11:45 | Short Stay Summary ---
Short Stay Documentation Date of service: 09/23/16 Narrative H&P: See H&P - Allergies and Medications Current Medications: Allergies No Known Allergies Allergy (Verified 07/18/16 23:52) Home Medications Medication Instructions Recorded Confirmed Last Taken Type NIFEdipine XL [Procardia Xl] 60 mg PO QDAY 12/30/15 09/15/16 1 Day Ago History Cyanocobalamin (Vitamin B-12) 500 mcg PO DAILY 06/23/16 09/15/16 1 Day Ago History [Vitamin B12] Lisinopril [Zestril TAB] 10 mg PO QDAY 06/23/16 09/15/16 1 Day Ago History Cosopt Pf Eye Drops 1 drop OU BID 07/01/16 09/15/16 Unknown History Metoprolol [Lopressor TAB] 25 mg PO Q12HR #60 tablet 07/09/16 09/15/16 Unknown Rx Prasugrel [Effient] 10 mg PO QDAY #30 tablet 07/09/16 09/15/16 Unknown Rx Simvastatin [Zocor TAB] 40 mg PO QHS #30 tablet 07/09/16 09/15/16 Unknown Rx oxyCODONE /ACETAMINOPHEN [Percocet 1 tab PO Q6HR PRN #25 tablet 07/09/16 Unknown Rx 5/325 mg] Protonix TAB 40 mg PO BID 07/20/16 09/15/16 Unknown History Insulin Lispro [Humalog 100 0 units SQ TIDAC 09/15/16 09/15/16 Unknown History UNITS/ML Kwikpen] Sevelamer Carbonate [Renvela] 800 mg PO TIDWM 09/15/16 09/15/16 Unknown History Vit B Cplx #11/FA/C/Biot/Zn Ox 1 each PO QDAY 09/15/16 09/15/16 Unknown History [Dialyvite with Zinc Tablet] Active Medications Famotidine (Pepcid) 20 mg PO PREOP NR Stop: 09/23/16 15:00 Last Admin: 09/23/16 09:03 Dose: 20 mg Hydromorphone HCl (Dilaudid) 0.5 mg IV Q10MIN PRN PRN Reason: Pain , Severe (7-10) Stop: 09/23/16 15:00 Cefazolin Sodium (Ancef/Sterile Water 2 Gm/20 Ml) 2 gm in 20 mls @ 80 mls/hr IV PREOP NR PRN Reason: Protocol Stop: 09/23/16 23:59 Sodium Chloride (Nacl 0.9% 1000 Ml) 1,000 mls @ 42 mls/hr IV DIRECT MABEL Last Admin: 09/23/16 09:03 Dose: 42 mls/hr - Brief post op/procedure progress note Date of procedure: 09/23/16 Pre-op diagnosis: End-Stage Renal Disease Post-op diagnosis: same Procedure: Creation of Left Brachiocephalic Arteriovenous Fistula Anesthesia: regional Surgeon: CAM KELLEY Estimated blood loss: minimal Pathology: none Condition: stable - Disposition Condition at discharge: Good Disposition: DISCHARGED TO HOME OR SELFCARE Short Stay Discharge Plan Activity: other (no heavy lifting with left arm) Wound: open to air, keep clean and dry, other (okay to wash the wound with soap and water but do not soak in water) Follow up with: CAM KELLEY MD [Staff Physician] - 14 Days Prescriptions: HYDROcodone/APAP 7.5-325 [[place] 7.5/325] 1 each PO Q6HR PRN #50 tablet PRN Reason: Pain
--- NOTE | 2016-09-23 11:52 | Operative Report ---
Operative Report Operative Report: Date of procedure: 09/23/2016 Pre-operative diagnosis: End-Stage Renal Disease Post-operative diagnosis: End-Stage Renal Disease Procedure(s): Creation of Left Brachial Artery to Cephalic Vein Arteriovenous Fistula Surgeon: Thomas Jones MD Welfare Project Manager: None Anesthesia: Regional block EBL: Minimal Counts: Correct Complications: None Condition: Stable Findings: Successful creation of left radiocephalic arteriovenous fistula with palpable thrill at the end of the case. Specimen: None Indications: The patient is a 71-year-old female with history of end-stage renal disease currently on hemodialysis through a permacath. She is in need of long-term access and vein mapping demonstrated an adequate vein for creation of fistula. She was given the risk, benefits, and alternative procedures and consented to procedure. Description of Procedure: The patient was brought to the operating room and laid in supine position after general endotracheal anesthesia was administered the patient was prepped and draped in normal sterile fashion. After anesthetizing the skin a transverse incision was created just below the antecubital crease. Dissection was carried down to the the cephalic vein using sharp dissection. The vein was dissected out both proximally and distally and suture ligated and divided distally. I then ran a 3 Leroy proximally in the vein, to ensure patency of the vein. Then flushed the vein with heparinized saline and flow was controlled with a bulldog clamp. I then dissected out the brachial artery through this incision circumferentially both proximal and distal and controlled the artery with vessel loops. I then placed the vessel loops on tension controlling the flow through the artery and created an arteriotomy using an 11 blade and Joe scissors. I created an end to side anastomosis between the cephalic vein and brachial artery using a 6-0 Prolene in running fashion. Prior to completing the anastomosis I flushed the artery both proximally and distally and then advanced a 3 Leroy proximally to break the spasm in the artery. I then completed the anastomosis and removed all vessel loops allowing flow into the fistula which had an excellent thrill. I achieved hemostasis with a combination of direct pressure and electrocautery. Once hemostasis was achieved I anesthetized the wound with Marcaine. I then closed the wound in 2 layers and 3-0 Vicryl in a running fashion to close the deep dermal layer and 4- 0 Monocryl in a running fashion in the subcuticular layer. I dressed the wound with Surgicel. The patient tolerated the procedure well, all sponge needle and instrument counts were correct. The patient was taken to recovery in stable condition.
[2016-09-23 13:00] VITALS: BP 143/71
== END 2016-09-23 13:46 | disposition home or self-care (01) ==
LOC: OR 08:13
PROVIDERS: ATTEND Surgery Vascular Surgery
DX: I13.2 Hypertensive heart and chronic kidney disease with heart failure and with stage 5 chronic kidney disease, or end stage renal disease (principal); E11.22 Type 2 diabetes mellitus with diabetic chronic kidney disease; N18.6 End stage renal disease; I50.9 Heart failure, unspecified; E78.00 Pure hypercholesterolemia, unspecified; I25.10 Atherosclerotic heart disease of native coronary artery without angina pectoris; D64.9 Anemia, unspecified; E66.9 Obesity, unspecified; Z68.30 Body mass index [BMI] 30.0-30.9, adult; Z99.2 Dependence on renal dialysis; Z95.0 Presence of cardiac pacemaker; Z79.899 Other long term (current) drug therapy; Z79.4 Long term (current) use of insulin; Z83.3 Family history of diabetes mellitus; Z82.49 Family history of ischemic heart disease and other diseases of the circulatory system; Z80.9 Family history of malignant neoplasm, unspecified
CPT/HCPCS: 36415; 36818; 64450; 82962; 84132; J0690; J1644; J2250; J2704; J3010; J7030; J7040; J1815

== ENCOUNTER 2018-08-03 08:43 | Inpatient (IN) | payer MEDICARE ==
[2018-08-03] MEDS ORDERED: D50W (25GM) Syringe IV PRN (12:42)
[2018-08-03] MEDS ORDERED: ZOFRAN IV PRN (12:42)
[2018-08-03] MEDS ORDERED: TYLENOL PO PRN (12:42)
--- NOTE | 2018-08-03 12:51 | History and Physical Report ---
History of Present Illness Date of examination: 08/03/18 History of present illness: Patient is a 73 year old woman with multiple medical problems. She has renal disease previously treated with dialysis. In 2017, she was found to have moderate mitral stenosis with multivessel coronary artery disease. She was recommended her for mitral valve replacement with coronary artery bypass. After evaluation by CT surgery, it appeared that she was referred for percutaneous coronary intervention without valve replacement. Her latest echocardiogram revealed severe mitral stenosis with mild to moderate MR. She has been referred from the outpatient setting for IV hydration prior to cardiac catheterization. Medications and Allergies Allergies Allergy/AdvReac Type Severity Reaction Status Date / Time No Known Allergies Allergy Verified 07/18/16 23:52 Home Medications Medication Instructions Recorded Confirmed Last Taken Type NIFEdipine XL [Procardia Xl] 60 mg PO QDAY 12/30/15 09/15/16 1 Day Ago History ~06/22/16 Cyanocobalamin (Vitamin B-12) 500 mcg PO DAILY 06/23/16 09/15/16 1 Day Ago History [Vitamin B12] ~06/22/16 Lisinopril [Zestril TAB] 10 mg PO QDAY 06/23/16 09/15/16 1 Day Ago History ~06/22/16 Cosopt Pf Eye Drops 1 drop OU BID 07/01/16 09/15/16 Unknown History Metoprolol [Lopressor TAB] 25 mg PO Q12HR #60 tablet 07/09/16 09/15/16 Unknown Rx Prasugrel [Effient] 10 mg PO QDAY #30 tablet 07/09/16 09/15/16 Unknown Rx Simvastatin [Zocor TAB] 40 mg PO QHS #30 tablet 07/09/16 09/15/16 Unknown Rx oxyCODONE /ACETAMINOPHEN [Percocet 1 tab PO Q6HR PRN #25 tablet 07/09/16 09/15/16 Unknown Rx 5/325 mg] Protonix TAB 40 mg PO BID 07/20/16 09/15/16 Unknown History B Complex 11/Folic/C/Biot/Zinc 1 each PO QDAY 09/15/16 09/15/16 Unknown History [Dialyvite with Zinc Tablet] Insulin Lispro [Humalog 100 0 units SQ TIDAC 09/15/16 09/15/16 Unknown History UNITS/ML Kwikpen] Sevelamer Carbonate [Renvela] 800 mg PO TIDWM 09/15/16 09/15/16 Unknown History HYDROcodone/APAP 7.5-325 [[place] 1 each PO Q6HR PRN #50 tablet 09/23/16 Unknown Rx 7.5/325] Active Meds: Active Medications Acetaminophen (Tylenol) 650 mg PO Q4H PRN PRN Reason: Pain MILD(1-3)/Fever >100.5/OCONNELL Aspirin (Aspirin) 81 mg PO QDAY MABEL Dextrose (D50w (25gm) Syringe) 50 ml IV PRN PRN PRN Reason: Hypoglycemia Enoxaparin Sodium (Lovenox) 30 mg SUB-Q QDAY MABEL Ferrous Sulfate (Feosol) 325 mg PO QDAY MABEL Furosemide (Lasix) 80 mg PO QDAY MABEL Sodium Chloride (Nacl 0.45% 1000 Ml) 1,000 mls @ 50 mls/hr IV DIRECT MABEL Insulin Human Regular (Humulin R) 0 units SUB-Q ACHS MABEL; Protocol Lisinopril (Zestril) 10 mg PO QDAY MABEL Nifedipine (Procardia Xl) 60 mg PO QDAY MABEL Ondansetron HCl (Zofran) 4 mg IV Q8H PRN PRN Reason: Nausea And Vomiting Pantoprazole Sodium (Protonix) 40 mg PO BID MABEL Sodium Chloride (Sodium Chloride Flush Syringe 10 Ml) 10 ml IV PRN PRN PRN Reason: LINE FLUSH Assessment and Plan Chronic kidney disease taken off hemodialysis 12/2017 Hx of Second degree AVB s/p PPM Hypertension Diabetes Nonrheumatic Mitral stenosis Echo 07/2018: severe MS with mild to moderate MR Severe pulmonary hypertension Hx of CAD PCI to the Ramus and CX with FREDERICK 12/2015 Plan: Check labs IV hydration If creatinine is stable, will plan a cardiac catheterization tomorrow morning.
[2018-08-03 15:44] LABS: Hematocrit 34.9 % (30.3-42.9); Hemoglobin 12.1 gm/dl (10.1-14.3); Mean Corpuscular HGB Conc 35 % (30-34); Mean Corpuscular Volume 82 fl (79-97); Red Blood Count 4.27 M/mm3 (3.65-5.03); Red Cell Distribution Width 16.6 % (13.2-15.2)
[2018-08-03 15:48] LABS: INR 1.05 (0.87-1.13)
[2018-08-03 16:04] LABS: Platelet Count 233 K/mm3 (140-440)
[2018-08-03] MEDS: HumuLIN R SUB-Q SCH ×2 (20:00→23:26)
[2018-08-03 20:55] LABS: Basophils % (Manual) 0 % (0.0-1.8); Eosinophils % (Manual) 0 % (0.0-4.3); Total Cells Counted 100
[2018-08-03 20:56] LABS: Hypochromasia 1+; Platelet Estimate Consistent w Auto; Target Cells Few
[2018-08-03] MEDS: PROTONIX PO SCH (21:16)
[2018-08-03] MEDS: NACL 0.45% 1000 ML 1,000 ML IV SCH (21:16)
[2018-08-03] MEDS: SODIUM CHLORIDE FLUSH SYRINGE 10 ML IV PRN (21:17)
[2018-08-04] MEDS ORDERED: HALFPRIN EC PO SCH (08:00)
[2018-08-04] MEDS ORDERED: VERSED ONE (09:03)
[2018-08-04] MEDS ORDERED: HEPARIN/NS 5000 UNIT/500ML(CATH LAB) 1,000 ML IR ONE (09:03)
[2018-08-04] MEDS ORDERED: SUBLIMAZE ONE (09:03)
[2018-08-04] MEDS ORDERED: HEPARIN 10,000 UNITS/10 ML ONE (09:03)
[2018-08-04] MEDS ORDERED: NACL 0.9% 500 ML 500 ML ONE (09:04)
[2018-08-04] MEDS ORDERED: NITROGLYCERIN SYRINGE 0 ML ONE (09:04)
[2018-08-04] MEDS ORDERED: CALAN ONE (09:04)
[2018-08-04] MEDS ORDERED: XYLOCAINE 2% INFILTRATI ONE (09:04)
--- NOTE | 2018-08-04 09:57 | Progress Note ---
Assessment and Plan Mitral valve stenosis Severe, calcific by echo in office Cath revealed a mean gradient of 6.7 mm Hg (PCWP-LV gradient), MVA 2.59 cm2, CI 3.52 l/min/m2 Coronary artery disease 99% in-stent restenosis of Cx and OM bifurcation stent 40% mid LAD; 70% D2 40% proximal RCA Chronic renal failure Systemic Hypertension Type II DM Recommendations: Perform limited echo to further evaluate mitral valve gradient and area Continue gentle IV hydration post cath (40 cc contrast used) Subjective Date of service: 08/04/18 Principal diagnosis: Mitral valve stenosis Interval history: Patient underwent a cardiac cath - no complications Objective Vital Signs Temp Pulse Resp BP Pulse Ox 08/04/18 09:49 78 14 142/55 98 08/04/18 09:46 97.8 F 22 138/51 100 08/04/18 07:24 98.0 F 77 18 141/48 98 08/04/18 02:16 73 98 08/04/18 02:02 98.3 F 20 137/46 08/03/18 19:27 81 100 08/03/18 19:26 98.2 F 20 132/52 08/03/18 14:10 18 08/03/18 14:02 98.6 F 86 18 124/49 99 - Physical Examination General: Appears Well HEENT: Positive: PERRL Neck: Positive: neck supple Cardiac: Positive: Reg Rate and Rhythm Lungs: Positive: Normal Exam Neuro: Positive: Grossly Intact Abdomen: Positive: Soft Extremities: Absent: edema - Labs and Meds Coagulation 08/03/18 Range/Units 15:07 PT 14.3 (12.2-14.9) Sec. INR 1.05 (0.87-1.13) CBC 08/03/18 Range/Units 15:07 WBC 11.7 H (4.5-11.0) K/mm3 RBC 4.27 (3.65-5.03) M/mm3 Hgb 12.1 (10.1-14.3) gm/dl Hct 34.9 (30.3-42.9) % Plt Count 233 (140-440) K/mm3 Lymph # Belt Conveyor Drier [place] # Belt Conveyor Drier Eos # Belt Conveyor Drier Baso # Belt Conveyor Drier Comprehensive Metabolic Panel 08/03/18 Range/Units 15:07 Sodium 134 L (137-145) mmol/L Potassium 4.6 (3.6-5.0) mmol/L Chloride 102.6 (98-107) mmol/L Carbon Dioxide 16 L (22-30) mmol/L BUN 63 H (7-17) mg/dL Creatinine 1.8 H (0.7-1.2) mg/dL Glucose 156 H (65-100) mg/dL Calcium 9.0 (8.4-10.2) mg/dL
--- NOTE | 2018-08-04 12:16 | Cardiac Catherization Report ---
LEFT AND RIGHT HEART CATHETERIZATION ORDERING PHYSICIAN: Cecilia Sanchez MD INDICATION: Severe mitral stenosis. PROCEDURES PERFORMED: 1. Selective left and right coronary angiography. 2. Right heart catheterization with hemodynamic measurement and oxygen saturation run. 3. A left ventriculogram was not performed due to underlying renal insufficiency. DESCRIPTION OF PROCEDURE: After obtaining written consent, the patient was draped using sterile technique. A 2% lidocaine was injected into the right groin. A 5-Fijian vascular sheath was inserted into the right femoral artery. An 8-Fijian vascular sheath was inserted into the right femoral vein. A 5-Fijian JL4 catheter was used to selectively engage left coronary artery. A 5-Fijian JR4 catheter was used to selectively engage the right coronary artery. A 7-Fijian [place]-Dan[place] catheter was used to measure right-sided hemodynamics and perform an oxygen saturation run. No complications occurred during the procedure. Hemostasis was achieved at the end of the procedure using manual pressure. SPECIMEN REMOVED: None. ESTIMATED BLOOD LOSS: Minimal. TOTAL SEDATION ADMINISTERED: 1 mg of IV Versed and 25 mcg of IV fentanyl. Physician-patient [id number] sedation start time 8:56 a.m. Physician-patient [id number] sedation stop time 9:23 a.m. Total sedation time is 27 minutes. FINDINGS: HEMODYNAMICS: 1. The pulmonary capillary wedge pressure mean was 50 mmHg. 2. The pulmonary artery systolic pressure 47 mmHg. Pulmonary artery diastolic pressure 16 mmHg and the mean pulmonary artery pressure was 29 mmHg. 3. Left ventricular systolic pressure was 142 mmHg with left ventricular end-diastolic pressure was 13 mmHg. The aortic pressure was 144 mmHg with an aortic diastolic pressure of 56 mmHg. There was no significant gradient noted across left ventricular outflow tract. 4. The right ventricular systolic pressure was 58 mmHg with a right ventricular end-diastolic pressure of 16 mmHg. 5. The mean right arterial pressure was measured at 7 mmHg. 6. The calculated cardiac output is 6.54 liters per minute and the calculated Jennifer cardiac index is 3.52 liters per minute per meter square. 7. The pulmonary artery saturation was 66%, right ventricular saturation 63%, right atrial saturation 70%, and aortic saturation 93%. 8. The measured mean gradient between the mitral valve and the pulmonary capillary wedge pressure was 6.7 mmHg. The calculated mitral valve area was 2.59 centimeter square. CARDIAC STRUCTURES: Left ventriculogram was not performed due to underlying renal insufficiency. CORONARY ANATOMY: 1. This is a right dominant circulation. 2. The left main is angiographically normal. 3. The left anterior descending artery has evidence of scattered diffuse disease. There is a 40% focal stenosis noted in the mid LAD. There is evidence of a 70% tubular stenosis noted in the proximal segment of the second diagonal artery. 4. The left circumflex artery has evidence of 99% in-stent restenosis involving both the mid circumflex as well as the proximal obtuse marginal. No focal disease noted distally. 5. The right coronary artery is dominant. There was initially evidence of a spasm upon catheter engagement that eventually dissipated. There is a 40% lesion noted focally in the proximal right coronary artery. There is mild to moderate scattered disease, otherwise that is not obstructive. There are faint right to left collateral supplying the circumflex artery from the right coronary artery. IMPRESSION: 1. Significant obstructive disease noted within the left circumflex artery with 99% in-stent restenosis of the proximal circumflex stent as well as a 99% in-stent restenosis of proximal OM1 stent. There is a 70% tubular stenosis of the second diagonal artery. 2. There is the mean gradient across the pulmonary capillary wedge pressure and the left ventricle was 6.7 mmHg with a mitral valve area of 2.59 centimeter square. 3. There is evidence of mildly elevated pulmonary artery pressure. There is no evidence of an intracardiac shunt. There is evidence of preserved cardiac output. RECOMMENDATIONS: Repeat an echocardiogram to further evaluate the mitral valve stenosis and decide on further plan accordingly. [facility]# [id number] CHRISTEN/SILVIA
[2018-08-04] MEDS: PROCARDIA XL PO SCH (12:31)
[2018-08-04] MEDS: BABY ASPIRIN PO SCH (12:31)
[2018-08-04] MEDS: LASIX PO SCH (12:31)
[2018-08-04] MEDS: FEOSOL PO SCH (12:31)
[2018-08-04] MEDS: PROTONIX PO SCH ×2 (12:31→22:02)
[2018-08-04] MEDS: ZESTRIL PO SCH (12:33)
[2018-08-04] MEDS: LOVENOX SUB-Q SCH (12:36)
[2018-08-04] MEDS ORDERED: NACL 0.9% 500 ML 500 ML IV SCH (13:00)
[2018-08-04] MEDS: HumuLIN R SUB-Q SCH ×4 (16:54→22:40)
[2018-08-04] MEDS: SODIUM CHLORIDE FLUSH SYRINGE 10 ML IV PRN (22:02)
[2018-08-05 01:11] LABS: Basophils # (Auto) 0.1 K/mm3 (0.0-0.1); Basophils % (Auto) 0.6 % (0.0-1.8); Eosinophils # (Auto) 0.4 K/mm3 (0.0-0.4); Eosinophils % (Auto) 3.5 % (0.0-4.3); Hematocrit 31.4 % (30.3-42.9); Hemoglobin 10.4 gm/dl (10.1-14.3); Lymphocytes # (Auto) 1.2 K/mm3 (1.2-5.4); Mean Corpuscular HGB Conc 33 % (30-34); Mean Corpuscular Volume 82 fl (79-97); Monocytes # (Auto) 1.1 K/mm3 (0.0-0.8); Monocytes % (Auto) 11.3 % (0.0-7.3); Platelet Count 291 K/mm3 (140-440); Red Blood Count 3.83 M/mm3 (3.65-5.03); Red Cell Distribution Width 16.7 % (13.2-15.2)
[2018-08-05] MEDS: NACL 0.45% 1000 ML 1,000 ML IV SCH (03:57)
[2018-08-05 06:47] LABS: Calcium 8.7 mg/dL (8.4-10.2)
--- NOTE | 2018-08-05 07:38 | Anesthesia Day of Surgery ---
Anesthesia Day of Surgery - Day of Surgery Patient Examined: Yes Patient H&P Reviewed: Yes Patient is NPO: Yes Beta Blockers: Yes Cardiac Clearance: No Pulmonary Clearance: No
[2018-08-05 08:50] VITALS: BP 136/60
[2018-08-05] MEDS: HumuLIN R SUB-Q SCH ×2 (08:52→12:41)
[2018-08-05] MEDS: BABY ASPIRIN PO SCH (09:40)
[2018-08-05] MEDS: FEOSOL PO SCH (09:41)
[2018-08-05] MEDS: LOVENOX SUB-Q SCH (09:41)
[2018-08-05] MEDS: LASIX PO SCH (09:41)
[2018-08-05] MEDS: PROCARDIA XL PO SCH (09:42)
[2018-08-05] MEDS: ZESTRIL PO SCH (09:42)
[2018-08-05] MEDS: PROTONIX PO SCH (09:42)
--- NOTE | 2018-08-05 11:07 | Discharge Summary ---
Providers - Providers Date of Admission: 08/03/18 13:35 Date of discharge: 08/05/18 Attending physician: JESUS ALBERTO GUTIERREZ Primary care physician: STEPAN NEWBY Hospitalization Condition: Good Hospital course: Patient is a 73 year old woman with mitral stenosis, coronary artery disease and chronic renal failure who was admitted for IV hydration prior to a cardiac catheterization. Her initial creatinine was 1.8 on presentation. Patient underwent a cardiac cath that revealed multivessel coronary artery disease recommended for medical therapy. An echocardiogram for reassessment of the mitral valve reports moderate mitral stenosis, mean gradient across the mitral valve of 9 mmHg. Today she has a creatinine of 1.4. Patient feels well, has no complaints and is ready for discharge home. Patient advised to follow up with her primary trigonometry tutor within 3-5 days. Disposition: TO HOME OR SELFCARE Core Measure Documentation - Palliative Care Palliative Care/ Comfort Measures: Not Applicable - Core Measures Any of the following diagnoses?: none Exam - Constitutional Vitals: Temp Pulse Resp BP Pulse Ox 98.1 F 75 20 136/60 97 08/05/18 07:27 08/05/18 08:50 08/05/18 08:02 08/05/18 07:27 08/05/18 08:50 General appearance: Present: no acute distress - EENT Eyes: Present: PERRL ENT: hearing intact - Neck Neck: Present: normal ROM - Respiratory Respiratory effort: normal - Cardiovascular Heart Sounds: Present: S1 & S2 - Psychiatric Psychiatric: appropriate mood/affect Plan Activity: advance as tolerated Diet: low fat, low cholesterol, low salt Wound: keep clean and dry Follow up with: STEPAN NEWBY MD [Primary Care Provider] - 7 Days JESUS ALBERTO GUTIERREZ MD [Staff Physician] - 7 Days
== END 2018-08-05 13:25 | disposition home health service (06) | DRG 287 ==
LOC: UNDOADMIN 08:43 → 3A 08:43 → 2B-ACE 13:35
PROVIDERS: ADMIT Internal Medicine; ATTEND Internal Medicine
PROC: 4A023N8 Measurement of Cardiac Sampling and Pressure, Bilateral, Percutaneous Approach (ICD-10-PCS; principal; 2018-08-04)
PROC: B2111ZZ Fluoroscopy of Multiple Coronary Arteries using Low Osmolar Contrast (ICD-10-PCS; 2018-08-04)
DX: T82.855A Stenosis of coronary artery stent, initial encounter (principal); I05.2 Rheumatic mitral stenosis with insufficiency; N18.9 Chronic kidney disease, unspecified; I27.20 Pulmonary hypertension, unspecified; I12.9 Hypertensive chronic kidney disease with stage 1 through stage 4 chronic kidney disease, or unspecified chronic kidney disease; E11.22 Type 2 diabetes mellitus with diabetic chronic kidney disease; Y83.8 Other surgical procedures as the cause of abnormal reaction of the patient, or of later complication, without mention of misadventure at the time of the procedure; I25.10 Atherosclerotic heart disease of native coronary artery without angina pectoris; Z79.4 Long term (current) use of insulin; Z79.899 Other long term (current) drug therapy; Z95.5 Presence of coronary angioplasty implant and graft; Y92.098 Other place in other non-institutional residence as the place of occurrence of the external cause; N18.3 Chronic kidney disease, stage 3 (moderate)
CPT/HCPCS: 36415; 80048; 82962; 85007; 85025; 85610; 93005; 93010; 93306; 93460; G0378; A9270-GY; J1644; J1650; J1815; J2250; J3010; J7030; J7040; Q9967

== ENCOUNTER 2018-11-10 01:57 | Inpatient (IN) | payer MEDICARE ==
[2018-11-10 02:54] LABS: Basophils # (Auto) 0.1 K/mm3 (0.0-0.1); Basophils % (Auto) 1.1 % (0.0-1.8); Eosinophils # (Auto) 0.2 K/mm3 (0.0-0.4); Eosinophils % (Auto) 3.2 % (0.0-4.3); Hematocrit 26.5 % (30.3-42.9); Hemoglobin 8.9 gm/dl (10.1-14.3); Lymphocytes % (Auto) 13.8 % (13.4-35.0); Mean Corpuscular HGB Conc 34 % (30-34); Mean Corpuscular Volume 78 fl (79-97); Monocytes % (Auto) 13.2 % (0.0-7.3); Platelet Count 289 K/mm3 (140-440); Red Blood Count 3.39 M/mm3 (3.65-5.03)
[2018-11-10 02:57] LABS: Red Cell Distribution Width 20.6 % (13.2-15.2)
[2018-11-10 03:09] LABS: INR 1.42 (0.87-1.13); Partial Thromboplastin Time 32.7 Sec. (24.2-36.6)
[2018-11-10 03:13] LABS: Albumin 3.6 g/dL (3.9-5); Calcium 9.7 mg/dL (8.4-10.2)
--- NOTE | 2018-11-10 03:19 | XRay Report ---
CHEST 1 VIEW INDICATION / CLINICAL INFORMATION: Chest Pain. COMPARISON: None available. FINDINGS: SUPPORT DEVICES: None. HEART / MEDIASTINUM: Cardiac silhouette is mild to moderately enlarged. Sternotomy. LUNGS / PLEURA: Mild interstitial pulmonary edema is present. There are small bilateral pleural effus ions noted. Bibasilar atelectasis. No pneumothorax. ADDITIONAL FINDINGS: Pacing device is present. IMPRESSION: 1. Enlarged cardiac silhouette with associated interstitial pulmonary edema and small bilateral pleur al effusions. Signer Name: Rut Bourne MD Signed: 11/10/2018 2:14 AM Workstation Name: [id number]
--- NOTE | 2018-11-10 03:54 | Emergency Department Report ---
ED Chest Pain HPI - General Chief Complaint: Chest Pain Stated Complaint: CHEST PAIN Time Seen by Provider: 11/10/18 02:08 Source: patient, EMS Mode of arrival: Stretcher Limitations: No Limitations - History of Present Illness Initial Comments: 73-year-old female presents to the emergency department via EMS from home with complaint of some midsternal, nonradiating chest pain that started around midnight this evening and resolved within 1 hour. The patient was given a full dose aspirin by EMS. She has a past medical history of con gestive heart failure, diabetes, coronary artery disease with previous [place], cardiac stents in place and recent double bypass. She also has a history of hypertension and some chronic kidney disease. The patient had the double bypass done 3 weeks ago at [place] by Dr. Diaz and the patient had a follow-up appointment today. Her primary care physician is Dr. Greg Singh and her fountain pen nibs inspector is Dr. Sanchez. - Related Data Home Medications Medication Instructions Recorded Confirmed Last Taken NIFEdipine XL [Procardia Xl] 60 mg PO QDAY 12/30/15 08/03/18 08/03/18 08:00 Cyanocobalamin (Vitamin B-12) 500 mcg PO DAILY 06/23/16 08/03/18 08/03/18 08:00 [Vitamin B12] Lisinopril [Zestril TAB] 10 mg PO QDAY 06/23/16 08/03/18 08/03/18 08:00 Cosopt Pf Eye Drops 1 drop OU BID 07/01/16 08/03/18 08/03/18 08:00 Protonix TAB 40 mg PO BID 07/20/16 08/03/18 08/03/18 08:00 B Complex 11/Folic/C/Biot/Zinc 1 each PO QDAY 09/15/16 08/03/18 08/03/18 08:00 [Dialyvite with Zinc Tablet] Insulin Lispro [Humalog 100 24 units SQ TIDAC 09/15/16 08/03/18 08/02/18 22:00 UNITS/ML Kwikpen] Adult Low Dose Aspirin EC 81 mg PO DAILY 08/03/18 08/03/18 08/03/18 08:00 Furosemide 80 mg PO BID 08/03/18 08/03/18 08/03/18 08:00 Iron 325 mg PO DAILY 0308/03/18 08/03/18 08:00 Restasis 0.05% 0.05 drops OU DAILY 08/03/18 08/03/18 08/03/18 08:00 Spironolactone 25 mg PO BID 08/03/18 08/03/18 08/03/18 08:00 Previous Rx's Medication Instructions Recorded Last Taken Type Metoprolol [Lopressor TAB] 25 mg PO Q12HR #60 tablet 07/09/16 08/03/18 08:00 Rx Simvastatin [Zocor TAB] 40 mg PO QHS #30 tablet 07/09/16 08/02/18 Rx Allergies Allergy/AdvReac Type Severity Reaction Status Date / Time No Known Allergies Allergy Verified 07/18/16 23:52 Heart Score - HEART Score History: Slightly suspicious EKG: Non-specific Age: > 65 Risk factors: > 3 risk factors or hx of atherosclerotic disease Troponin: > 3x normal limit HEART Score: 7 - Critical Actions Critical Actions: >7 pts:50-65% risk of adverse cardiac event. Early invasive measures ED Review of Systems ROS: Stated complaint: CHEST PAIN Other details as noted in HPI Comment: All other systems reviewed and negative Constitutional: denies: chills, fever Eyes: denies: eye pain, vision change ENT: denies: ear pain, throat pain Respiratory: denies: cough, shortness of breath Cardiovascular: chest pain. denies: palpitations Gastrointestinal: denies: abdominal pain, vomiting Genitourinary: denies: dysuria, frequency Musculoskeletal: denies: back pain, arthralgia Skin: denies: rash, lesions Neurological: denies: headache, weakness ED Past Medical Hx - Past Medical History Previous Medical History?: Yes Hx Hypertension: Yes Hx Heart Attack/AMI: Yes Hx Congestive Heart Failure: Yes Hx Diabetes: Yes Hx GERD: Yes Hx Renal Disease: Yes (RIGHT VASCATH, HD YESTERDAY) Hx Arthritis: No Hx Seizures: No Hx Asthma: No Hx COPD: No Hx Tuberculosis: No Hx HIV: No Additional medical history: stents,pacemaker - Surgical History Hx Coronary Stent: Yes Hx Open Heart Surgery: Yes (Bypass 3 weeks ago) Hx Pacemaker: Yes Hx Internal Defibrillator: Yes Additional Surgical History: valve surgery, pacemaker - Social History Smoking Status: Never Smoker Substance Use Type: None - Medications Home Medications: Home Medications Medication Instructions Recorded Confirmed Last Taken Type NIFEdipine XL [Procardia Xl] 60 mg PO QDAY 12/30/15 08/03/18 08/03/18 08:00 History Cyanocobalamin (Vitamin B-12) 500 mcg PO DAILY 06/23/16 08/03/18 08/03/18 08:00 History [Vitamin B12] Lisinopril [Zestril TAB] 10 mg PO QDAY 06/23/16 08/03/18 08/03/18 08:00 History Cosopt Pf Eye Drops 1 drop OU BID 07/01/16 08/03/18 08/03/18 08:00 History Metoprolol [Lopressor TAB] 25 mg PO Q12HR #60 tablet 07/09/16 08/03/18 08/03/18 08:00 Rx Simvastatin [Zocor TAB] 40 mg PO QHS #30 tablet 07/09/16 08/03/18 08/02/18 Rx Protonix TAB 40 mg PO BID 07/20/16 08/03/18 08/03/18 08:00 History B Complex 11/Folic/C/Biot/Zinc 1 each PO QDAY 09/15/16 08/03/18 08/03/18 08:00 History [Dialyvite with Zinc Tablet] Insulin Lispro [Humalog 100 24 units SQ TIDAC 09/15/16 08/03/18 08/02/18 22:00 History UNITS/ML Kwikpen] Adult Low Dose Aspirin EC 81 mg PO DAILY 08/03/18 08/03/18 08/03/18 08:00 History Furosemide 80 mg PO BID 08/03/18 08/03/18 08/03/18 08:00 History Iron 325 mg PO DAILY 08/03/18 08/03/18 08/03/18 08:00 History Restasis 0.05% 0.05 drops OU DAILY 08/03/18 08/03/18 08/03/18 08:00 History Spironolactone 25 mg PO BID 08/03/18 08/03/18 08/03/18 08:00 History ED Physical Exam - General Limitations: No Limitations - Other Other exam information: GENERAL: The patient is well-developed well-nourished. HENT: Normocephalic. Atraumatic. Patient has moist mucous membranes. EYES: Extraocular motions are intact. NECK: Supple. Trachea is midline. CHEST/LUNGS: Coarse breath sounds throughout the chest. No tachypnea or accessory muscle use. There is no respiratory distress noted. HEART/CARDIOVASCULAR: Regular. There is no tachycardia. There is no murmur. ABDOMEN: Abdomen is soft, nontender. Patient has normal bowel sounds. There is no abdominal distention. SKIN: Skin is warm and dry. NEURO: The patient is awake, alert, and oriented. The patient is cooperative. The patient has no focal neurologic deficits. The patient has normal speech. MUSCULOSKELETAL: There is no tenderness or deformity. There is no evidence of acute injury. ED Course Vital Signs 11/10/18 11/10/18 02:14 02:53 Temperature 98.1 F Pulse Rate 90 Respiratory 24 25 H Rate Blood Pressure 135/65 [Left] O2 Sat by Pulse 100 100 Oximetry ARCHIE score - Archie Score Age > 65: (1) Yes Aspirin use within the Past 7 Days: (1) Yes 3 or more CAD Risk Factors: (1) Yes 2 or more Angina events in past 24 hrs: (0) No Known CAD with more than 50% Stenosis: (1) Yes Elevated Cardiac Markers: (1) Yes ST Deviation Greater than 0.5mm: (1) Yes ARCHIE Score: 6 ED Medical Decision Making - Lab Data Result diagrams: 11/10/18 02:37 11/10/18 02:37 - EKG Data -: EKG Interpreted by Me - EKG Data When compared to previous EKG there are: changes noted (current EKG shows a ventricular paced rhythm) Interpretation: other (ventricular paced rhythm, irregular, rate of 92, left axis deviation) - Radiology Data Radiology results: image reviewed interpreted by me: Chest x-ray shows cardiomegaly with pulmonary vascular congestion and bilateral basilar pleural effusions. - Medical Decision Making This patient presents with some acute chest pain that started around midnight and then appears to have resolved after aspirin within one hour after it began. The patient has a very significant cardiac history including previous [place], recent bypass surgery. Her EKG does not show ST elevation [place]. Chest x-ray shows some vascular congestion and bilateral basilar pleural effusions. She has some renal insufficiency but is improved from previous visits. She has an elevated troponin that is also decreased from previous visits but is quite dipti vated at 0.19. BNP of greater than 4000. Patient was given a dose of Lasix to start diuresis. She already received aspirin from EMS. The patient will be admitted to the hospital for further evaluation and treatment and was accepted for admission by the hospitalist, Dr. Stewart. - Differential Diagnosis [place], CHF, Pneumonia, GERD Critical Care Time: No Critical care attestation.: If time is entered above; I have spent that time in minutes in the direct care of this critically ill patient, excluding procedure time. ED Disposition Clinical Impression: Acute chest pain, Elevated troponin CHF exacerbation Qualifiers: Heart failure type: unspecified Qualified Code(s): I50.9 - Heart failure, unspecified CKD (chronic kidney disease) Qualifiers: Chronic kidney disease stage: unspecified stage Qualified Code(s): N18.9 - C hronic kidney disease, unspecified Disposition: OP ADMIT IP TO THIS HOSP Is pt being admited?: Yes Condition: Fair Instructions: Chest Pain (ED) Referrals: REENA JONES MD [Primary Care Provider] - 3-5 Days Time of Disposition: 04:29
[2018-11-10] MEDS ORDERED: LASIX IV ONE (04:22)
[2018-11-10 04:25] LABS: Chol/HDL Ratio 3.42 %
[2018-11-10] MEDS ORDERED: D50W (25GM) Syringe IV PRN (04:39)
[2018-11-10] MEDS ORDERED: MORPHINE IV PRN ×2 (04:44)
[2018-11-10] MEDS ORDERED: ZOFRAN IV PRN (04:44)
[2018-11-10] MEDS ORDERED: NITROSTAT SL PRN (04:44)
[2018-11-10] MEDS ORDERED: ULTRAM PO PRN (04:44)
[2018-11-10] MEDS ORDERED: SODIUM CHLORIDE FLUSH SYRINGE 10 ML IV PRN (04:44)
--- NOTE | 2018-11-10 04:57 | History and Physical Report ---
History of Present Illness Chief complaint: Chest pain History of present illness: 73-year-old woman with history of coronary artery disease, mitral stenosis, chronic kidney disease -The patient has had history of CABG 3 weeks ago at [facility]. She follows up with Dr. Laura [facility]. She was just released from the hospital recently. Presents with chest pain. Of note she had some heart f ailure and was being treated with Lasix at home. -At this point she is also having orthopnea, REYES, chest pain has now resolved, it lasted for 1 hour. It resolved after she took aspirin at home -she was recently dc from rehab on Thursday, and was taken off oxygen prior to dc and had been doing well on RA, her sat was 100 on RA when she presented to the ER Past medical history Coronary artery disease status post recent CABG, CHF, diabetes, GERD, chronic kidney disease on dialysis presently, status post pacemaker Surgical history; stents, bypass 3 weeks ago, pacemaker/ICD, permacath placements Social history never smoker, denies alcohol or illicit drug use Family history heart disease Medications and Allergies Allergies Allergy/AdvReac Type Severity Reaction Status Date / Time No Known Allergies Allergy Verified 07/18/16 23:52 Home Medications Medication Instructions Recorded Confirmed Last Taken Type NIFEdipine XL [Procardia Xl] 60 mg PO QDAY 12/30/15 08/03/18 08/03/18 08:00 History Cyanocobalamin (Vitamin B-12) 500 mcg PO DAILY 06/23/16 08/03/18 08/03/18 08:00 History [Vitamin B12] Lisinopril [Zestril TAB] 10 mg PO QDAY 06/23/16 08/03/18 08/03/18 08:00 History Cosopt Pf Eye Drops 1 drop OU BID 07/01/16 08/03/18 08/03/18 08:00 History Metoprolol [Lopressor TAB] 25 mg PO Q12HR #60 tablet 07/09/16 08/03/18 08/03/18 08:00 Rx Simvastatin [Zocor TAB] 40 mg PO QHS #30 tablet 07/09/16 08/03/18 08/02/18 Rx Protonix TAB 40 mg PO BID 07/20/16 08/03/18 08/03/18 08:00 History B Complex 11/Folic/C/Biot/Zinc 1 each PO QDAY 09/15/16 08/03/18 08/03/18 08:00 History [Dialyvite with Zinc Tablet] Insulin Lispro [Humalog 100 24 units SQ TIDAC 09/15/16 08/03/18 08/02/18 22:00 History UNITS/ML Kwikpen] Adult Low Dose Aspirin EC 81 mg PO DAILY 08/03/18 08/03/18 08/03/18 08:00 History Furosemide 80 mg PO BID 08/03/18 08/03/18 08/03/18 08:00 History Iron 325 mg PO DAILY 08/03/18 08/03/18 08/03/18 08:00 History Restasis 0.05% 0.05 drops OU DAILY 08/03/18 08/03/18 08/03/18 08:00 History Spironolactone 25 mg PO BID 08/03/18 08/03/18 08/03/18 08:00 History Active Meds: Active Medications Acetaminophen (Tylenol) 650 mg PO Q4H PRN PRN Reason: Pain MILD(1-3)/Fever >100.5/OCONNELL Aspirin (Baby Aspirin) 81 mg PO DAILY [facility] Cyanocobalamin (Vitamin B-12) 500 mcg PO DAILY [facility] Dextrose (D50w (25gm) Syringe) 50 ml IV PRN PRN PRN Reason: Hypoglycemia Ferrous Sulfate (Feosol) 325 mg PO DAILY [facility] Furosemide (Lasix) 40 mg IV 0600,1800 [facility] Insulin Human Lispro (Humalog) 24 unit SUB-Q TIDAC [facility] Insulin Human Lispro (Humalog) 0 unit SUB-Q ACHS [facility]; Protocol Lisinopril (Zestril) 10 mg PO QDAY [facility] Metoprolol Tartrate (Lopressor) 25 mg PO Q12HR [facility] Miscellaneous Medication (Cosopt Pf Eye Drops) 1 drop OU BID [facility] Miscellaneous Medication (Restasis 0.05%) 0.05 drops OU DAILY [facility] Morphine Sulfate (Morphine) 2 mg IV Q4H PRN PRN Reason: Pain, Moderate (4-6) Morphine Sulfate (Morphine) 2 mg IV Q5MIN PRN PRN Reason: Chest Pain unrelieved by NTG Multivit/Ca Carb/B Cmplx/FA/Prenat (Renal Caps) 1 cap PO QDAY [facility] Nifedipine (Procardia Xl) 60 mg PO QDAY [facility] Nitroglycerin (Nitrostat) 0.4 mg SL Q5M PRN PRN Reason: Chest Pain Ondansetron HCl (Zofran) 4 mg IV Q8H PRN PRN Reason: Nausea And Vomiting Oxycodone/Acetaminophen (Percocet 5/325) 1 tab PO Q6H PRN PRN Reason: Pain, Moderate (4-6) Pantoprazole Sodium (Protonix) 40 mg PO BID [facility] Pravastatin Sodium (Pravachol) 80 mg PO QHS [facility] Sodium Chloride (Sodium Chloride Flush Syringe 10 Ml) 10 ml IV BID [facility] Sodium Chloride (Sodium Chloride Flush Syringe 10 Ml) 10 ml IV PRN PRN PRN Reason: LINE FLUSH Spironolactone (Aldactone) 25 mg PO BID [facility] Tramadol HCl (Ultram) 50 mg PO Q4H PRN PRN Reason: Pain, Moderate (4-6) Review of Systems All systems: negative Constitutional: fatigue, no anorexia Ears, nose, mouth and throat: no ear pain Breasts: deferred Cardiovascular: chest pain, orthopnea, no palpitations Respiratory: no cough Gastrointestinal: no abdominal pain Genitourinary Female: no dysuria Rectal: no pain Musculoskeletal: no neck stiffness Neurological: no head injury Psychiatric: no anxiety Hematologic/Lymphatic: no easy bruising Allergic/Immunologic: no urticaria Exam - Constitutional Vitals: Temp Pulse Resp BP Pulse Ox 98.1 F 90 25 H 135/65 100 11/10/18 02:14 11/10/18 02:14 11/10/18 02:53 11/10/18 02:14 11/10/18 02:53 General appearance: Present: no acute distress, well-nourished - EENT Eyes: Present: PERRL ENT: hearing intact, clear oral mucosa - Neck Neck: Present: supple, normal ROM - Respiratory Respiratory effort: normal Respiratory: bilateral: diminished (bases) - Cardiovascular Heart Sounds: Present: S1 & S2. Absent: rub, click - Extremities Extremities: pulses symmetrical, No edema Peripheral Pulses: within normal limits - Abdominal General gastrointestinal: Present: soft, non-tender, non-distended, normal bowel sounds Female genitourinary: Present: normal - Integumentary Integumentary: Present: clear, warm, dry - Musculoskeletal Musculoskeletal: gait normal, strength equal bilaterally - Psychiatric Psychiatric: appropriate mood/affect, intact judgment & insight - Neurologic Neurologic: CNII-XII intact, moves all extremities Results - Labs CBC & Chem 7: 11/10/18 02:37 11/10/18 02:37 Labs: Laboratory Last Values WBC 7.4 K/mm3 (4.5-11.0) 11/10/18 02:37 RBC 3.39 M/mm3 (3.65-5.03) L 11/10/18 02:37 Hgb 8.9 gm/dl (10.1-14.3) L 11/10/18 02:37 Hct 26.5 % (30.3-42.9) L 11/10/18 02:37 MCV 78 fl (79-97) L 11/10/18 02:37 MCH 26 pg (28-32) L 11/10/18 02:37 MCHC 34 % (30-34) 11/10/18 02:37 RDW 20.6 % (13.2-15.2) H 11/10/18 02:37 Plt Count 289 K/mm3 (140-440) 11/10/18 02:37 Lymph % (Auto) 13.8 % (13.4-35.0) 11/10/18 02:37 [place] % (Auto) 13.2 % (0.0-7.3) H 11/10/18 02:37 Eos % (Auto) 3.2 % (0.0-4.3) 11/10/18 02:37 Baso % (Auto) 1.1 % (0.0-1.8) 11/10/18 02:37 Lymph # 1.0 K/mm3 (1.2-5.4) L 11/10/18 02:37 [place] # 1.0 K/mm3 (0.0-0.8) H 11/10/18 02:37 Eos # 0.2 K/mm3 (0.0-0.4) 11/10/18 02:37 Baso # 0.1 K/mm3 (0.0-0.1) 11/10/18 02:37 Seg Neutrophils % 68.7 % (40.0-70.0) 11/10/18 02:37 Seg Neutrophils # 5.1 K/mm3 (1.8-7.7) 11/10/18 02:37 PT 17.0 Sec. (12.2-14.9) H 11/10/18 02:37 INR 1.42 (0.87-1.13) H 11/10/18 02:37 APTT 32.7 Sec. (24.2-36.6) 11/10/18 02:37 Sodium 144 mmol/L (137-145) 11/10/18 02:37 Potassium 3.9 mmol/L (3.6-5.0) 11/10/18 02:37 Chloride 105.8 mmol/L (98-107) 11/10/18 02:37 Carbon Dioxide 26 mmol/L (22-30) 11/10/18 02:37 16 mmol/L 11/10/18 02:37 BUN 25 mg/dL (7-17) H 11/10/18 02:37 1.5 mg/dL (0.7-1.2) H 11/10/18 02:37 Estimated GFR 41 ml/min 11/10/18 02:37 17 % 11/10/18 02:37 Glucose 108 mg/dL (65-100) H 11/10/18 02:37 Calcium 9.7 mg/dL (8.4-10.2) 11/10/18 02:37 0.50 mg/dL (0.1-1.2) 11/10/18 02:37 AST 16 units/L (5-40) 11/10/18 02:37 ALT 13 units/L (7-56) 11/10/18 02:37 128 units/L (35-129) 11/10/18 02:37 0.190 ng/mL (0.00-0.029) H* 11/10/18 02:37 NT-Pro-B Natriuret Pep 4044 pg/mL (0-900) H 11/10/18 03:36 7.1 g/dL (6.3-8.2) 11/10/18 02:37 3.6 g/dL (3.9-5) L 11/10/18 02:37 1.0 % 11/10/18 02:37 Triglycerides 106 mg/dL (2-149) 11/10/18 02:37 Cholesterol 113 mg/dL (50-199) 11/10/18 02:37 64 mg/dL (50-130) 11/10/18 02:37 33 mg/dL (40-59) L 11/10/18 02:37 3.42 % 11/10/18 02:37 - Imaging and Cardiology Chest x-ray: image reviewed (1. Enlarged cardiac silhouette with associated interstitial pulmonary edema and small bilateral ) Assessment and Plan Assessment and plan: 73-year-old woman with known coronary artery disease status post recent bypass who presents with chest pain Chest pain/cad Consult cardiology, transient troponin's, does not appear to be having an acute AL at this time, expect an elevated troponin after recent CABG DDx include pericarditis, will give one dose of prednisone until seen by cardiology CHF exacerbation echo in july shows preserved EF IV lasix, optimize cardiac meds, [facility] consult Type 2 diabetes Sliding scale insulin, resume home insulins Chronic kidney disease Nephrology consults, dialysis as needed DVT prophylaxis with Lovenox
[2018-11-10] MEDS ORDERED: LASIX ONE (05:32)
[2018-11-10] MEDS ORDERED: HumaLOG SUB-Q SCH (07:30)
[2018-11-10] MEDS: HumaLOG SUB-Q SCH ×5 (07:34→22:30)
[2018-11-10] MEDS ORDERED: RESTASIS 0.05% OU SCH (10:00)
[2018-11-10] MEDS ORDERED: COSOPT EYE OU SCH (10:00)
--- NOTE | 2018-11-10 10:52 | Event Note ---
Date: 11/10/18 Patient with CAD s/p CABG, presents with chest pain. I have seen and examined her. discussed with cardiology. Medical management.
--- NOTE | 2018-11-10 11:20 | Consultation ---
<AZIZA WEST - Last Filed: 11/10/18 11:30> History of Present Illness Consult date: 11/10/18 Consult reason: chest pain History of present illness: This is a 73-year old woman whom is a poor historian. There are no family members present. Review of records shows an extensive cardiac history. She has a dual chamber pacemaker for history of atrioventricular block. Outpatient interrogations has revealed a normal functioning device. Patient has a history of moderate mitral stenosis and multivessel coronary artery disease recommended her for MVR with coronary artery bypass. Patient was referred for CT surgery evaluation 2 months ago. The surgical report is not available but it appeared that she underwent CT surgery as evidence of her sternotomy scar and sternotomy wires seen on cxr. Patient is now admitted with chest pain. Cardiac consultation has been requ ested. Today, patient reports she is feeling better. She currently denies chest pain, shortness of breath and palpitations. There is no dizziness or pre- syncope. Her ECG is a ventricular paced rhythm. Medications and Allergies Allergies Allergy/AdvReac Type Severity Reaction Status Date / Time No Known Allergies Allergy Verified 07/18/16 23:52 Home Medications Medication Instructions Recorded Confirmed Last Taken Type NIFEdipine XL [Procardia Xl] 60 mg PO QDAY 12/30/15 08/03/18 08/03/18 08:00 History Cyanocobalamin (Vitamin B-12) 500 mcg PO DAILY 06/23/16 08/03/18 08/03/18 08:00 History [Vitamin B12] Lisinopril [Zestril TAB] 10 mg PO QDAY 06/23/16 08/03/18 08/03/18 08:00 History Cosopt Pf Eye Drops 1 drop OU BID 07/01/16 08/03/18 08/03/18 08:00 History Metoprolol [Lopressor TAB] 25 mg PO Q12HR #60 tablet 07/09/16 08/03/18 08/03/18 08:00 Rx Simvastatin [Zocor TAB] 40 mg PO QHS #30 tablet 07/09/16 08/03/18 08/02/18 Rx Protonix TAB 40 mg PO BID 07/20/16 08/03/18 08/03/18 08:00 History B Complex 11/Folic/C/Biot/Zinc 1 each PO QDAY 09/15/16 08/03/18 08/03/18 08:00 History [Dialyvite with Zinc Tablet] Insulin Lispro [Humalog 100 24 units SQ TIDAC 09/15/16 08/03/18 08/02/18 22:00 History UNITS/ML Kwikpen] Adult Low Dose Aspirin EC 81 mg PO DAILY 08/03/18 08/03/18 08/03/18 08:00 History Furosemide 80 mg PO BID 08/03/18 08/03/18 08/03/18 08:00 History Iron 325 mg PO DAILY 08/03/18 08/03/18 08/03/18 08:00 History Restasis 0.05% 0.05 drops OU DAILY 08/03/18 08/03/18 08/03/18 08:00 History Spironolactone 25 mg PO BID 08/03/18 11/10/18 08/03/18 08:00 History AtorvaSTATin [Lipitor] 20 mg PO BID 11/10/18 11/10/18 Unknown History Insulin Glargine,Hum.rec.anlog 3 units SUB-Q AC 11/10/18 11/10/18 Unknown History [Dorota Samay[place]] Pantoprazole [Protonix TAB] 40 mg PO QDAY 11/10/18 11/10/18 Unknown History Active Meds: Active Medications Acetaminophen (Tylenol) 650 mg PO Q4H PRN PRN Reason: Pain MILD(1-3)/Fever >100.5/OCONNELL Aspirin (Baby Aspirin) 81 mg PO DAILY [facility] Cyanocobalamin (Vitamin B-12) 500 mcg PO DAILY [facility] Dextrose (D50w (25gm) Syringe) 50 ml IV PRN PRN PRN Reason: Hypoglycemia Enoxaparin Sodium (Lovenox) 30 mg SUB-Q QDAY [facility] Ferrous Sulfate (Feosol) 325 mg PO DAILY [facility] Furosemide (Lasix) 40 mg IV 0600,1800 [facility] Insulin Human Lispro (Humalog) 24 unit SUB-Q TIDAC [facility] Insulin Human Lispro (Humalog) 0 unit SUB-Q ACHS [facility]; Protocol Lisinopril (Zestril) 10 mg PO QDAY [facility] Metoprolol Tartrate (Lopressor) 25 mg PO Q12HR [facility] Miscellaneous Medication (Cosopt Pf Eye Drops) 1 drop OU BID [facility] Miscellaneous Medication (Restasis 0.05%) 0.05 drops OU DAILY [facility] Morphine Sulfate (Morphine) 2 mg IV Q4H PRN PRN Reason: Pain, Moderate (4-6) Morphine Sulfate (Morphine) 2 mg IV Q5MIN PRN PRN Reason: Chest Pain unrelieved by NTG Multivit/Ca Carb/B Cmplx/FA/Prenat (Renal Caps) 1 cap PO QDAY [facility] Nifedipine (Procardia Xl) 60 mg PO QDAY [facility] Nitroglycerin (Nitrostat) 0.4 mg SL Q5M PRN PRN Reason: Chest Pain Ondansetron HCl (Zofran) 4 mg IV Q8H PRN PRN Reason: Nausea And Vomiting Oxycodone/Acetaminophen (Percocet 5/325) 1 tab PO Q6H PRN PRN Reason: Pain, Moderate (4-6) Pantoprazole Sodium (Protonix) 40 mg PO BID [facility] Pravastatin Sodium (Pravachol) 80 mg PO QHS [facility] Sodium Chloride (Sodium Chloride Flush Syringe 10 Ml) 10 ml IV BID [facility] Sodium Chloride (Sodium Chloride Flush Syringe 10 Ml) 10 ml IV PRN PRN PRN Reason: LINE FLUSH Spironolactone (Aldactone) 25 mg PO BID [facility] Tramadol HCl (Ultram) 50 mg PO Q4H PRN PRN Reason: Pain, Moderate (4-6) Physical Examination Vital Signs Temp Pulse Resp BP Pulse Ox 98.1 F 90 24 135/65 100 11/10/18 02:14 11/10/18 02:14 11/10/18 02:14 11/10/18 02:14 11/10/18 02:14 General appearance: no acute distress HEENT: Positive: PERRL Neck: Positive: trachea midline Cardiac: Positive: Other (v-paced) Lungs: Positive: Decreased Breath Sounds Neuro: Positive: Grossly Intact Extremities: Absent: edema Results 11/10/18 02:37 11/10/18 09:58 Cardiac Enzymes 11/10/18 Range/Units 02:37 AST 16 (5-40) units/L Coagulation 11/10/18 Range/Units 02:37 PT 17.0 H (12.2-14.9) Sec. INR 1.42 H (0.87-1.13) APTT 32.7 (24.2-36.6) Sec. Lipids 11/10/18 Range/Units 02:37 Triglycerides 106 (2-149) mg/dL Cholesterol 113 (50-199) mg/dL HDL Cholesterol 33 L (40-59) mg/dL Cholesterol/HDL Ratio 3.42 % CBC 11/10/18 Range/Units 02:37 WBC 7.4 (4.5-11.0) K/mm3 RBC 3.39 L (3.65-5.03) M/mm3 Hgb 8.9 L (10.1-14.3) gm/dl Hct 26.5 L (30.3-42.9) % Plt Count 289 (140-440) K/mm3 Lymph # 1.0 L (1.2-5.4) K/mm3 [place] # 1.0 H (0.0-0.8) K/mm3 Eos # 0.2 (0.0-0.4) K/mm3 Baso # 0.1 (0.0-0.1) K/mm3 Comprehensive Metabolic Panel 11/10/18 Range/Units 02:37 Sodium 144 (137-145) mmol/L Potassium 3.9 (3.6-5.0) mmol/L Chloride 105.8 (98-107) mmol/L Carbon Dioxide 26 (22-30) mmol/L BUN 25 H (7-17) mg/dL Creatinine 1.5 H (0.7-1.2) mg/dL Glucose 108 H (65-100) mg/dL Calcium 9.7 (8.4-10.2) mg/dL AST 16 (5-40) units/L ALT 13 (7-56) units/L Alkaline Phosphatase 128 (35-129) units/L Total Protein 7.1 (6.3-8.2) g/dL Albumin 3.6 L (3.9-5) g/dL Assessment and Plan Chest pain Chronic renal failure Pulmonary HTN, moderate Hx of CAD Hx of Moderate Mitral Stenosis Hypertension Hx of Atrioventricular block s/p PPM Diabetes mellitus Recommendation: Obtain CT surgery report for cardiac review. Medical therapy for coronary artery disease. <EMMIE SNOW - Last Filed: 11/10/18 23:54> Medications and Allergies Active Meds: Active Medications Acetaminophen (Tylenol) 650 mg PO Q4H PRN PRN Reason: Pain MILD(1-3)/Fever >100.5/[facility] Aspirin (Baby Aspirin) 81 mg PO DAILY [facility] Last Admin: 11/10/18 11:29 Dose: 81 mg Documented by: Cyanocobalamin (Vitamin B-12) 500 mcg PO DAILY [facility] Last Admin: 11/10/18 11:30 Dose: 500 mcg Documented by: Dextrose (D50w (25gm) Syringe) 50 ml IV PRN PRN PRN Reason: Hypoglycemia Enoxaparin Sodium (Lovenox) 30 mg SUB-Q QDAY [facility] Last Admin: 11/10/18 11:22 Dose: 30 mg Documented by: Ferrous Sulfate (Feosol) 325 mg PO DAILY [facility] Last Admin: 11/10/18 11:27 Dose: 325 mg Documented by: Furosemide (Lasix) 40 mg IV 0600,1800 [facility] Last Admin: 11/10/18 17:28 Dose: 40 mg Documented by: Insulin Human Lispro (Humalog) 0 unit SUB-Q ACHS [facility]; Protocol Last Admin: 11/10/18 22:30 Dose: 2 unit Documented by: Insulin Human Lispro (Humalog) 12 unit SUB-Q TIDAC [facility] Last Admin: 11/10/18 18:10 Dose: 12 unit Documented by: Lisinopril (Zestril) 10 mg PO QDAY [facility] Last Admin: 11/10/18 11:28 Dose: 10 mg Documented by: Metoprolol Tartrate (Lopressor) 25 mg PO Q12HR [facility] Last Admin: 11/10/18 21:53 Dose: 25 mg Documented by: Miscellaneous Medication (Cosopt Pf Eye Drops) 1 drop OU BID [facility] Miscellaneous Medication (Restasis 0.05%) 0.05 drops OU DAILY [facility] Morphine Sulfate (Morphine) 2 mg IV Q4H PRN PRN Reason: Pain, Moderate (4-6) Morphine Sulfate (Morphine) 2 mg IV Q5MIN PRN PRN Reason: Chest Pain unrelieved by NTG Multivit/Ca Carb/B Cmplx/FA/Prenat (Renal Caps) 1 cap PO QDAY [facility] Last Admin: 11/10/18 11:27 Dose: 1 cap Documented by: Nifedipine (Procardia Xl) 60 mg PO QDAY [facility] Last Admin: 11/10/18 11:27 Dose: 60 mg Documented by: Nitroglycerin (Nitrostat) 0.4 mg SL Q5M PRN PRN Reason: Chest Pain Ondansetron HCl (Zofran) 4 mg IV Q8H PRN PRN Reason: Nausea And Vomiting Oxycodone/Acetaminophen (Percocet 5/325) 1 tab PO Q6H PRN PRN Reason: Pain, Moderate (4-6) Last Admin: 11/10/18 23:49 Dose: 1 tab Documented by: Pantoprazole Sodium (Protonix) 40 mg PO BID [facility] Last Admin: 11/10/18 21:51 Dose: 40 mg Documented by: Pravastatin Sodium (Pravachol) 80 mg PO QHS [facility] Last Admin: 11/10/18 21:51 Dose: 80 mg Documented by: Sodium Chloride (Sodium Chloride Flush Syringe 10 Ml) 10 ml IV BID [facility] Last Admin: 11/10/18 21:53 Dose: 10 ml Documented by: Sodium Chloride (Sodium Chloride Flush Syringe 10 Ml) 10 ml IV PRN PRN PRN Reason: LINE FLUSH Spironolactone (Aldactone) 25 mg PO BID [facility] Last Admin: 11/10/18 21:52 Dose: 25 mg Documented by: Tramadol HCl (Ultram) 50 mg PO Q4H PRN PRN Reason: Pain, Moderate (4-6) Physical Examination Vital Signs Temp Pulse Resp BP Pulse Ox 98.1 F 90 24 135/65 100 11/10/18 02:14 11/10/18 02:14 11/10/18 02:14 11/10/18 02:14 11/10/18 02:14 Results 11/10/18 02:37 11/10/18 09:58 Cardiac Enzymes 11/10/18 Range/Units 02:37 AST 16 (5-40) units/L Coagulation 11/10/18 Range/Units 02:37 PT 17.0 H (12.2-14.9) Sec. INR 1.42 H (0.87-1.13) APTT 32.7 (24.2-36.6) Sec. Lipids 11/10/18 Range/Units 02:37 Triglycerides 106 (2-149) mg/dL Cholesterol 113 (50-199) mg/dL HDL Cholesterol 33 L (40-59) mg/dL Cholesterol/HDL Ratio 3.42 % CBC 11/10/18 Range/Units 02:37 WBC 7.4 (4.5-11.0) K/mm3 RBC 3.39 L (3.65-5.03) M/mm3 Hgb 8.9 L (10.1-14.3) gm/dl Hct 26.5 L (30.3-42.9) % Plt Count 289 (140-440) K/mm3 Lymph # 1.0 L (1.2-5.4) K/mm3 [place] # 1.0 H (0.0-0.8) K/mm3 Eos # 0.2 (0.0-0.4) K/mm3 Baso # 0.1 (0.0-0.1) K/mm3 Comprehensive Metabolic Panel 11/10/18 11/10/18 Range/Units 02:37 09:58 Sodium 144 143 (137-145) mmol/L Potassium 3.9 4.0 (3.6-5.0) mmol/L Chloride 105.8 102.2 (98-107) mmol/L Carbon Dioxide 26 26 (22-30) mmol/L BUN 25 H 24 H (7-17) mg/dL Creatinine 1.5 H 1.5 H (0.7-1.2) mg/dL Glucose 108 H 97 (65-100) mg/dL Calcium 9.7 9.9 (8.4-10.2) mg/dL AST 16 (5-40) units/L ALT 13 (7-56) units/L Alkaline Phosphatase 128 (35-129) units/L Total Protein 7.1 (6.3-8.2) g/dL Albumin 3.6 L (3.9-5) g/dL Assessment and Plan The patient has dementia and is unable to provide clear information regarding her history and recent surgery. Obtain CT surgery report for cardiac review. Medical therapy for coronary artery disease.
[2018-11-10] MEDS: LOVENOX SUB-Q SCH (11:22)
[2018-11-10 11:23] LABS: Calcium 9.9 mg/dL (8.4-10.2)
[2018-11-10] MEDS: SODIUM CHLORIDE FLUSH SYRINGE 10 ML IV SCH ×2 (11:26→21:53)
[2018-11-10] MEDS: PROTONIX PO SCH ×2 (11:27→21:51)
[2018-11-10] MEDS: LOPRESSOR PO SCH ×2 (11:27→21:53)
[2018-11-10] MEDS: Renal Caps PO SCH (11:27)
[2018-11-10] MEDS: PROCARDIA XL PO SCH (11:27)
[2018-11-10] MEDS: FEOSOL PO SCH (11:27)
[2018-11-10] MEDS: ZESTRIL PO SCH (11:28)
[2018-11-10] MEDS: BABY ASPIRIN PO SCH (11:29)
[2018-11-10] MEDS: ALDACTONE PO SCH ×2 (11:29→21:52)
[2018-11-10] MEDS: VITAMIN B-12 PO SCH (11:30)
--- NOTE | 2018-11-10 14:11 | Consultation ---
History of Present Illness - Reason for Consult Consult date: 11/10/18 chronic renal failure Requesting physician: EMMY NASCIMENTO - History of Present Illness This is a 73 yo AAF with past medical history of hypertension, Type 2 DM, CAD s/p CABG, CKD stage 3, secondary hyperparathyroidism, who presents to the [facility] ER with complaints of intermittent chest pain associated with orthopnea, dyspnea on exertion, pain was somewhat relieved by ASA. Trop was mildly elevated at 0.17, 0.19 and patient was admitted for further cardiac evaluation. Labs also showed elevated BUN/Cr at 24.1.5mg/dl and renal consult is requested for management of CKD. Pt follows up with Dr Howe in our group, most recent visit was in 06/2018, when pt's baseline Cr was around 1.4-1.7mg/dl. Pt was temporarily on HD in the past, off HD since 12/2016. Denies recent NSAIDs use or IV contrast exposure. Past History Past Medical History: anemia, diabetes, hypertension, renal failure Past Surgical History: CABG Social history: denies: smoking, alcohol abuse, prescription drug abuse, IV drug use Family history: hypertension Medications and Allergies Allergies Allergy/AdvReac Type Severity Reaction Status Date / Time No Known Allergies Allergy Verified 07/18/16 23:52 Home Medications Medication Instructions Recorded Confirmed Last Taken Type NIFEdipine XL [Procardia Xl] 60 mg PO QDAY 12/30/15 08/03/18 08/03/18 08:00 History Cyanocobalamin (Vitamin B-12) 500 mcg PO DAILY 06/23/16 08/03/18 08/03/18 08:00 History [Vitamin B12] Lisinopril [Zestril TAB] 10 mg PO QDAY 06/23/16 08/03/18 08/03/18 08:00 History Cosopt Pf Eye Drops 1 drop OU BID 07/01/16 08/03/18 08/03/18 08:00 History Metoprolol [Lopressor TAB] 25 mg PO Q12HR #60 tablet 07/09/16 08/03/18 08/03/18 08:00 Rx Simvastatin [Zocor TAB] 40 mg PO QHS #30 tablet 07/09/16 08/03/18 08/02/18 Rx Protonix TAB 40 mg PO BID 07/20/16 08/03/18 08/03/18 08:00 History B Complex 11/Folic/C/Biot/Zinc 1 each PO QDAY 09/15/16 08/03/18 08/03/18 08:00 History [Dialyvite with Zinc Tablet] Insulin Lispro [Humalog 100 24 units SQ TIDAC 09/15/16 08/03/18 08/02/18 22:00 History UNITS/ML Kwikpen] Adult Low Dose Aspirin EC 81 mg PO DAILY 08/03/18 08/03/18 08/03/18 08:00 History Furosemide 80 mg PO BID 08/03/18 08/03/18 08/03/18 08:00 History Iron 325 mg PO DAILY 08/03/18 08/03/18 08/03/18 08:00 History Restasis 0.05% 0.05 drops OU DAILY 08/03/18 08/03/18 08/03/18 08:00 History Spironolactone 25 mg PO BID 08/03/18 11/10/18 08/03/18 08:00 History AtorvaSTATin [Lipitor] 20 mg PO BID 11/10/18 11/10/18 Unknown History Insulin Glargine,Hum.rec.anlog 3 units SUB-Q AC 11/10/18 11/10/18 Unknown History [Toupeña [place]] Pantoprazole [Protonix TAB] 40 mg PO QDAY 11/10/18 11/10/18 Unknown History Active Meds: Active Medications Acetaminophen (Tylenol) 650 mg PO Q4H PRN PRN Reason: Pain MILD(1-3)/Fever >100.5/OCONNELL Aspirin (Baby Aspirin) 81 mg PO DAILY [facility] Last Admin: 11/10/18 11:29 Dose: 81 mg Documented by: Cyanocobalamin (Vitamin B-12) 500 mcg PO DAILY [facility] Last Admin: 11/10/18 11:30 Dose: 500 mcg Documented by: Dextrose (D50w (25gm) Syringe) 50 ml IV PRN PRN PRN Reason: Hypoglycemia Enoxaparin Sodium (Lovenox) 30 mg SUB-Q QDAY [facility] Last Admin: 11/10/18 11:22 Dose: 30 mg Documented by: Ferrous Sulfate (Feosol) 325 mg PO DAILY [facility] Last Admin: 11/10/18 11:27 Dose: 325 mg Documented by: Furosemide (Lasix) 40 mg IV 0600,1800 [facility] Insulin Human Lispro (Humalog) 24 unit SUB-Q TIDAC [facility] Last Admin: 11/10/18 07:34 Dose: Not Given Documented by: Insulin Human Lispro (Humalog) 0 unit SUB-Q ACHS [facility]; Protocol Last Admin: 11/10/18 07:34 Dose: Not Given Documented by: Lisinopril (Zestril) 10 mg PO QDAY [facility] Last Admin: 11/10/18 11:28 Dose: 10 mg Documented by: Metoprolol Tartrate (Lopressor) 25 mg PO Q12HR [facility] Last Admin: 11/10/18 11:27 Dose: 25 mg Documented by: Miscellaneous Medication (Cosopt Pf Eye Drops) 1 drop OU BID [facility] Miscellaneous Medication (Restasis 0.05%) 0.05 drops OU DAILY [facility] Morphine Sulfate (Morphine) 2 mg IV Q4H PRN PRN Reason: Pain, Moderate (4-6) Morphine Sulfate (Morphine) 2 mg IV Q5MIN PRN PRN Reason: Chest Pain unrelieved by NTG Multivit/Ca Carb/B Cmplx/FA/Prenat (Renal Caps) 1 cap PO QDAY [facility] Last Admin: 11/10/18 11:27 Dose: 1 cap Documented by: Nifedipine (Procardia Xl) 60 mg PO QDAY [facility] Last Admin: 11/10/18 11:27 Dose: 60 mg Documented by: Nitroglycerin (Nitrostat) 0.4 mg SL Q5M PRN PRN Reason: Chest Pain Ondansetron HCl (Zofran) 4 mg IV Q8H PRN PRN Reason: Nausea And Vomiting Oxycodone/Acetaminophen (Percocet 5/325) 1 tab PO Q6H PRN PRN Reason: Pain, Moderate (4-6) Pantoprazole Sodium (Protonix) 40 mg PO BID [facility] Last Admin: 11/10/18 11:27 Dose: 40 mg Documented by: Pravastatin Sodium (Pravachol) 80 mg PO QHS [facility] Sodium Chloride (Sodium Chloride Flush Syringe 10 Ml) 10 ml IV BID [facility] Last Admin: 11/10/18 11:26 Dose: 10 ml Documented by: Sodium Chloride (Sodium Chloride Flush Syringe 10 Ml) 10 ml IV PRN PRN PRN Reason: LINE FLUSH Spironolactone (Aldactone) 25 mg PO BID [facility] Last Admin: 11/10/18 11:29 Dose: 25 mg Documented by: Tramadol HCl (Ultram) 50 mg PO Q4H PRN PRN Reason: Pain, Moderate (4-6) Review of Systems All systems: negative Constitutional: fatigue, weakness Cardiovascular: chest pain, orthopnea, shortness of breath, dyspnea on exertion Exam - Vital Signs Vital signs: Vital Signs Temp Pulse Resp BP Pulse Ox 98.1 F 90 24 135/65 100 11/10/18 02:14 11/10/18 02:14 11/10/18 02:14 11/10/18 02:14 11/10/18 02:14 - General Appearance General appearance: well-developed, well-nourished, appears stated age EENT: ATNC, PERRL, mucous membranes moist Neck: Present: neck supple Respiratory: Clear to Ascultation Heart: regular, S1S2 Gastrointestinal: Present: normal Integumentary: no rash, other (no edema ) Neurologic: no focal deficit, alert and oriented x3, strength 5/5, CN 3-12 intact Psychiatric: mood/affect appropriate, cooperative Results - Lab Results 11/10/18 02:37 11/10/18 09:58 Most recent lab results Calcium 9.9 mg/dL (8.4-10.2) 11/10/18 09:58 Assessment and Plan - Patient Problems (1) Acute pulmonary edema Current Visit: Yes Status: Acute Plan to address problem: IV lasix 40mg bid in view of acute pulmonary edema. to target net negative fluid balance < 1L/day. (2) Acute chest pain Current Visit: Yes Status: Acute Plan to address problem: management as per cardiology (3) CKD (chronic kidney disease) Current Visit: Yes Status: Acute Qualifiers: Chronic kidney disease stage: stage 3 (moderate) Qualified Code(s): N18.3 - Chronic kidney disease, stage 3 (moderate) Plan to address problem: Pt renal function is close to her baseline. cont supportive care for CKD, avoid nephrotoxins, NSAIDs, IV contrast. Will monitor lytes and renal parameters closely and make further recommendations. (4) Hypertensive chronic kidney disease with stage 1 through stage 4 chronic kidney disease, or unspecified chronic kidney disease Current Visit: No Status: Chronic Plan to address problem: cont home BP regimen, incl ANNETTE-I given stable renal function (5) Type 2 diabetes mellitus with diabetic chronic kidney disease Current Visit: No Status: Chronic Qualifiers: Chronic kidney disease stage: stage 3 (moderate) Plan to address problem: glucose control as per primary attending
[2018-11-10] MEDS: LASIX IV SCH (17:28)
[2018-11-10 19:46] LABS: Bilirubin,Urine NEG (Negative); Blood,Urine NEG (Negative); Color,Urine Yellow (Yellow); Protein,Urine <15 mg/dL mg/dL (Negative); Urobilinogen,Urine < 2.0 mg/dL (<2.0); WBC,Urine < 1.0 /HPF (0.0-6.0)
[2018-11-10] MEDS: PRAVACHOL PO SCH (21:51)
[2018-11-10] MEDS: PERCOCET 5/325 PO PRN (23:49)
[2018-11-11] MEDS: LASIX IV SCH ×2 (05:19→17:35)
[2018-11-11 08:18] LABS: Hematocrit 25.8 % (30.3-42.9); Hemoglobin 8.6 gm/dl (10.1-14.3); Mean Corpuscular HGB Conc 33 % (30-34); Mean Corpuscular Volume 79 fl (79-97); Red Blood Count 3.26 M/mm3 (3.65-5.03)
--- NOTE | 2018-11-11 08:27 | Progress Note ---
Assessment and Plan - Patient Problems (1) Acute pulmonary edema Current Visit: Yes Status: Acute Plan to address problem: Continue on current diuretic regimen. Strict I/O and daily weights. (2) Acute chest pain Current Visit: Yes Status: Acute Plan to address problem: Chest pain resolved at this time, further recommendations per cardiology. (3) Chronic kidney disease, stage III (moderate) Current Visit: No Status: Chronic Plan to address problem: Renal function is at her baseline, Will continue to monitor. (4) Hypertensive chronic kidney disease with stage 1 through stage 4 chronic kidney disease, or unspecified chronic kidney disease Current Visit: No Status: Chronic Plan to address problem: Will monitor on current antihypertensive regimen. (5) Type 2 diabetes mellitus with diabetic chronic kidney disease Current Visit: No Status: Chronic Qualifiers: Chronic kidney disease stage: stage 3 (moderate) Plan to address problem: Diabetes management per primary attending. Subjective Date of service: 11/11/18 Interval history: No acute complaints this am. No new labs to review in regards to renal function this am. She denies any chest pain. She states that her shortness of breath has improved with the current diuretic regimen. Objective - Vital Signs Vital signs: Vital Signs - 12hr 11/10/18 11/10/18 11/10/18 21:52 21:53 23:43 Temperature 98.3 F Pulse Rate 94 H 94 H 90 Respiratory 18 Rate Blood Pressure 130/63 130/63 107/51 O2 Sat by Pulse 94 Oximetry 11/11/18 11/11/18 11/11/18 04:24 05:00 05:21 Temperature 97.9 F Pulse Rate 96 H 97 H Respiratory 18 18 Rate Blood Pressure 110/54 O2 Sat by Pulse 90 Oximetry 11/11/18 07:24 Temperature 98.5 F Pulse Rate 92 H Respiratory 18 Rate Blood Pressure 119/52 O2 Sat by Pulse 95 Oximetry - General Appearance General appearance: well-developed, well-nourished, appears stated age EENT: ATNC, PERRL Neck: no JVD, no thyromegaly Respiratory: Present: Clear to Ascultation Cardiology: regular, S1S2 Gastrointestinal: normal, normoactive bowel sounds Integumentary: no rash, warm and dry Neurologic: no focal deficit, no asterixis Musculoskeletal: other (mild edema ) - Lab 11/10/18 02:37 11/10/18 09:58 Most recent lab results Calcium 9.9 mg/dL (8.4-10.2) 11/10/18 09:58 - Imaging Chest x-ray: report reviewed - Allied health notes Allied health notes reviewed: nursing Medications & Allergies - Medications Allergies/Adverse Reactions: Allergies No Known Allergies Allergy (Verified 07/18/16 23:52) Home Medications: Home Medications Medication Instructions Recorded Confirmed Last Taken Type NIFEdipine XL [Procardia Xl] 60 mg PO QDAY 12/30/15 08/03/18 08/03/18 08:00 His tory Cyanocobalamin (Vitamin B-12) 500 mcg PO DAILY 06/23/16 08/03/18 08/03/18 08:00 History [Vitamin B12] Lisinopril [Zestril TAB] 10 mg PO QDAY 06/23/16 08/03/18 08/03/18 08:00 History Cosopt Pf Eye Drops 1 drop OU BID 07/01/16 08/03/18 08/03/18 08:00 History Metoprolol [Lopressor TAB] 25 mg PO Q12HR #60 tablet 07/09/16 08/03/18 08/03/18 08:00 Rx Simvastatin [Zocor TAB] 40 mg PO QHS #30 tablet 07/09/16 08/03/18 08/02/18 Rx Protonix TAB 40 mg PO BID 07/20/16 08/03/18 08/03/18 08:00 History B Complex 11/Folic/C/Biot/Zinc 1 each PO QDAY 09/15/16 08/03/18 08/03/18 08:00 History [Dialyvite with Zinc Tablet] Insulin Lispro [Humalog 100 24 units SQ TIDAC 09/15/16 08/03/18 08/02/18 22:00 History UNITS/ML Kwikpen] Adult Low Dose Aspirin EC 81 mg PO DAILY 08/03/18 08/03/18 08/03/18 08:00 History Furosemide 80 mg PO BID 08/03/18 08/03/18 08/03/18 08:00 History Iron 325 mg PO DAILY 08/03/18 08/03/18 08/03/18 08:00 History Restasis 0.05% 0.05 drops OU DAILY 08/03/18 08/03/18 08/03/18 08:00 History Spironolactone 25 mg PO BID 08/03/18 11/10/18 08/03/18 08:00 History AtorvaSTATin [Lipitor] 20 mg PO BID 11/10/18 11/10/18 Unknown History Insulin Glargine,Hum.rec.anlog 3 units SUB-Q AC 11/10/18 11/10/18 Unknown History [Toupeña [place]] Pantoprazole [Protonix TAB] 40 mg PO QDAY 11/10/18 11/10/18 Unknown History Active Medications: Generic Name Dose Route Start Last Admin Trade Name Freq PRN Reason Stop Dose Admin Acetaminophen 650 mg 11/10/18 04:44 Tylenol PO Q4H PRN Pain MILD(1-3)/Fever >100.5/OCONNELL Aspirin 81 mg 11/10/18 10:00 11/10/18 11:29 Baby Aspirin PO 81 mg DAILY MABEL Administration Cyanocobalamin 500 mcg 11/10/18 10:00 11/10/18 11:30 Vitamin B-12 PO 500 mcg DAILY MABEL Administration Dextrose 50 ml 11/10/18 04:39 D50w (25gm) Syringe IV PRN PRN Hypoglycemia Enoxaparin Sodium 30 mg 11/10/18 10:00 11/10/18 11:22 Lovenox SUB-Q 30 mg QDAY MABEL Administration Ferrous Sulfate 325 mg 11/10/18 10:00 11/10/18 11:27 Feosol PO 325 mg DAILY MABEL Administration Furosemide 40 mg 11/10/18 06:00 11/10/18 17:28 Lasix IV 40 mg 0600,1800 MABEL Administration Insulin Human Lispro 0 unit 11/10/18 07:30 11/10/18 22:30 Humalog SUB-Q 2 unit ACHS MABEL Administration Protocol Insulin Human Lispro 12 unit 11/10/18 17:33 11/10/18 18:10 Humalog SUB-Q 12 unit TIDAC MABEL Administration Lisinopril 10 mg 11/10/18 10:00 11/10/18 11:28 Zestril PO 10 mg QDAY MABEL Administration Metoprolol Tartrate 25 mg 11/10/18 10:00 11/10/18 21:53 Lopressor PO 25 mg Q12HR MABEL Administration Miscellaneous Medication 1 drop 11/10/18 10:00 Cosopt Pf Eye Drops OU BID [facility]EL Miscellaneous Medication 0.05 drops 11/10/18 10:00 Restasis 0.05% OU DAILY [facility] Morphine Sulfate 2 mg 11/10/18 04:44 Morphine IV Q4H PRN Pain, Moderate (4-6) Morphine Sulfate 2 mg 11/10/18 04:44 Morphine IV Q5MIN PRN Chest Pain unrelieved by NTG Multivit/Ca Carb/B Cmplx/FA/Prenat 1 cap 11/10/18 10:00 11/10/18 11:27 Renal Caps PO 1 cap QDAY MABEL Administration Nifedipine 60 mg 11/10/18 10:00 11/10/18 11:27 Procardia Xl PO 60 mg QDAY MABEL Administration Nitroglycerin 0.4 mg 11/10/18 04:44 Nitrostat SL Q5M PRN Chest Pain Ondansetron HCl 4 mg 11/10/18 04:44 Zofran IV Q8H PRN Nausea And Vomiting Oxycodone/Acetaminophen 1 tab 11/10/18 04:44 11/10/18 23:49 Percocet 5/325 PO 1 tab Q6H PRN Administration Pain, Moderate (4-6) Pantoprazole Sodium 40 mg 11/10/18 10:00 11/10/18 21:51 Protonix PO 40 mg BID MABEL Administration Pravastatin Sodium 80 mg 11/10/18 22:00 11/10/18 21:51 Pravachol PO 80 mg QHS MABEL Administration Sodium Chloride 10 ml 11/10/18 10:00 11/10/18 21:53 Sodium Chloride Flush Syringe 10 Ml IV 10 ml BID MABEL Administration Sodium Chloride 10 ml 11/10/18 04:44 Sodium Chloride Flush Syringe 10 Ml IV PRN PRN LINE FLUSH Spironolactone 25 mg 11/10/18 10:00 11/10/18 21:52 Aldactone PO 25 mg BID MABEL Administration Tramadol HCl 50 mg 11/10/18 04:44 11/11/18 05:29 Ultram PO 50 mg Q4H PRN Administration Pain, Moderate (4-6)
[2018-11-11 08:28] LABS: Red Cell Distribution Width 20.6 % (13.2-15.2)
[2018-11-11 09:12] LABS: BUN/Creatinine Ratio TNR; Blood Urea Nitrogen TNR mg/dL (7-17); Calcium TNR mg/dL (8.4-10.2); Hemolysis Index TNR
--- NOTE | 2018-11-11 09:43 | Progress Note ---
Assessment and Plan 1. Coronary artery disease status post CABG 2. Status post mitral valve replacement 3. Presence of cardiac pacemaker 4. Essential hypertension 5. Type 2 diabetes mellitus Plan Chest pain symptoms. To have resolved it appears. It is related to recent cardiac surgery sternotomy scar is well-healed with no signs of infection. We shall check echocardiogram. Subjective Date of service: 11/11/18 Interval history: No specific cardiac complains. Objective Vital Signs Temp Pulse Resp BP Pulse Ox 11/11/18 07:24 98.5 F 92 H 18 119/52 95 11/11/18 05:21 97 H 11/11/18 05:00 18 11/11/18 04:24 97.9 F 96 H 18 110/54 90 11/10/18 23:43 98.3 F 90 18 107/51 94 11/10/18 21:53 94 H 130/63 11/10/18 21:52 94 H 130/63 11/10/18 19:30 98.2 F 94 H 18 130/63 98 11/10/18 16:13 98.6 F 90 18 128/48 98 11/10/18 11:45 97.8 F 90 18 140/63 98 11/10/18 11:29 90 151/65 11/10/18 11:28 90 151/65 11/10/18 11:27 90 151/65 - Physical Examination HEENT: Positive: PERRL Neck: Positive: neck supple Cardiac: Positive: Regular Rate, S1/S2, PMI, Laterally Displaced, Other (median sternotomy scar) Lungs: Positive: clear to auscultation, No Wheeze, Rales, Rhonchi Neuro: Positive: Grossly Intact Abdomen: Positive: Unremarkable, Soft, Active Bowel Sounds Extremities: Absent: edema - Labs and Meds CBC 11/11/18 Range/Units 07:41 RBC 3.26 L (3.65-5.03) M/mm3 Hgb 8.6 L (10.1-14.3) gm/dl Hct 25.8 L (30.3-42.9) % Comprehensive Metabolic Panel 11/10/18 11/11/18 Range/Units 09:58 07:41 Sodium 143 TNR (137-145) mmol/L Potassium 4.0 TNR (3.6-5.0) mmol/L Chloride 102.2 TNR (98-107) mmol/L Carbon Dioxide 26 TNR (22-30) mmol/L BUN 24 H TNR (7-17) mg/dL Creatinine 1.5 H TNR (0.7-1.2) mg/dL Glucose 97 TNR (65-100) mg/dL Calcium 9.9 TNR (8.4-10.2) mg/dL - Allied health notes Allied health notes reviewed: nursing
[2018-11-11] MEDS: ALDACTONE PO SCH ×2 (09:51→22:18)
[2018-11-11] MEDS: LOPRESSOR PO SCH ×2 (09:52→22:18)
[2018-11-11] MEDS: PROTONIX PO SCH ×2 (09:53→22:18)
[2018-11-11] MEDS: BABY ASPIRIN PO SCH (09:53)
[2018-11-11] MEDS: ZESTRIL PO SCH (09:53)
[2018-11-11] MEDS: FEOSOL PO SCH (09:53)
[2018-11-11] MEDS: LOVENOX SUB-Q SCH (09:54)
[2018-11-11] MEDS: VITAMIN B-12 PO SCH (09:54)
[2018-11-11] MEDS: Renal Caps PO SCH (09:54)
--- NOTE | 2018-11-11 10:18 | Progress Note ---
Assessment and Plan Assessment and plan: 73-year-old woman with known coronary artery disease status post recent bypass who presents with chest pain Chest pain/cad Consult cardiology, transient troponin's, does not appear to be having an acute [place] at this time, expect an elevated troponin after recent CABG DDx include pericarditis, will give one dose of prednisone until seen by cardiology Acute on chronic diastolic CHF exacerbation echo in july shows preserved EF IV lasix, optimize cardiac meds, Cardiology following Type 2 diabetes Sliding scale insulin, resume home insulins Chronic kidney disease Nephrology following DVT prophylaxis with Lovenox History Interval history: Chest pain resolved Shortness of breath is less Hospitalist Physical - Physical exam Narrative exam: Gen: Not in acute distress, lying in bed,obese HEENT: Normocephalic, atraumatic Neck: supple, no JVD Heart: S1 and S2 reg, no murmurs, rubs or gallop Lungs: Bilateral basal crackles, no wheeze Abd: soft, non tender, non distended, normal BS Ext: No edema, no clubbing, no cyanosis, Neuro: Awake,alert, moves all ext, non focal - Constitutional Vitals: Temp Pulse Resp BP Pulse Ox 98.5 F 103 H 18 124/49 95 11/11/18 07:24 11/11/18 09:53 11/11/18 07:24 11/11/18 09:53 11/11/18 07:24 General appearance: Present: no acute distress Results - Labs CBC & Chem 7: 11/11/18 07:41 11/12/18 04:59 Labs: Laboratory Last Values WBC 7.4 K/mm3 (4.5-11.0) 11/10/18 02:37 RBC 3.26 M/mm3 (3.65-5.03) L 11/11/18 07:41 Hgb 8.6 gm/dl (10.1-14.3) L 11/11/18 07:41 Hct 25.8 % (30.3-42.9) L 11/11/18 07:41 MCV 79 fl (79-97) 11/11/18 07:41 MCH 26 pg (28-32) L 11/11/18 07:41 MCHC 33 % (30-34) 11/11/18 07:41 RDW 20.6 % (13.2-15.2) H 11/11/18 07:41 Plt Count 289 K/mm3 (140-440) 11/10/18 02:37 Lymph % (Auto) 13.8 % (13.4-35.0) 11/10/18 02:37 [place] % (Auto) 13.2 % (0.0-7.3) H 11/10/18 02:37 Eos % (Auto) 3.2 % (0.0-4.3) 11/10/18 02:37 Baso % (Auto) 1.1 % (0.0-1.8) 11/10/18 02:37 Lymph # 1.0 K/mm3 (1.2-5.4) L 11/10/18 02:37 [place] # 1.0 K/mm3 (0.0-0.8) H 11/10/18 02:37 Eos # 0.2 K/mm3 (0.0-0.4) 11/10/18 02:37 Baso # 0.1 K/mm3 (0.0-0.1) 11/10/18 02:37 Seg Neutrophils % 68.7 % (40.0-70.0) 11/10/18 02:37 Seg Neutrophils # 5.1 K/mm3 (1.8-7.7) 11/10/18 02:37 PT 17.0 Sec. (12.2-14.9) H 11/10/18 02:37 INR 1.42 (0.87-1.13) H 11/10/18 02:37 APTT 32.7 Sec. (24.2-36.6) 11/10/18 02:37 Sodium TNR 11/11/18 07:41 Potassium TNR 11/11/18 07:41 Chloride TNR 11/11/18 07:41 Carbon Dioxide TNR 11/11/18 07:41 TNR 11/11/18 07:41 BUN TNR 11/11/18 07:41 TNR 11/11/18 07:41 Estimated GFR TNR 11/11/18 07:41 TNR 11/11/18 07:41 Glucose TNR 11/11/18 07:41 POC Glucose 152 (70-105) H 11/11/18 07:31 Calcium TNR 11/11/18 07:41 0.50 mg/dL (0.1-1.2) 11/10/18 02:37 AST 16 units/L (5-40) 11/10/18 02:37 ALT 13 units/L (7-56) 11/10/18 02:37 128 units/L (35-129) 11/10/18 02:37 0.174 ng/mL (0.00-0.029) H* 11/10/18 09:58 NT-Pro-B Natriuret Pep 4044 pg/mL (0-900) H 11/10/18 03:36 7.1 g/dL (6.3-8.2) 11/10/18 02:37 3.6 g/dL (3.9-5) L 11/10/18 02:37 1.0 % 11/10/18 02:37 Triglycerides 106 mg/dL (2-149) 11/10/18 02:37 Cholesterol 113 mg/dL (50-199) 11/10/18 02:37 64 mg/dL (50-130) 11/10/18 02:37 33 mg/dL (40-59) L 11/10/18 02:37 3.42 % 11/10/18 02:37 Yellow (Yellow) 11/10/18 19:20 Slightly-cloudy (Clear) 11/10/18 19:20 7.0 (5.0-7.0) 11/10/18 19:20 Ur Specific [place] 1.012 (1.003-1.030) 11/10/18 19:20 <15 mg/dl mg/dL (Negative) 11/10/18 19:20 Neg mg/dL (Negative) 11/10/18 19:20 Neg mg/dL (Negative) 11/10/18 19:20 Neg (Negative) 11/10/18 19:20 Neg (Negative) 11/10/18 19:20 Neg (Negative) 11/10/18 19:20 < 2.0 mg/dL (<2.0) 11/10/18 19:20 Ur Leukocyte Esterase Neg (Negative) 11/10/18 19:20 < 1.0 /HPF (0.0-6.0) 11/10/18 19:20 2.0 /HPF (0.0-6.0) 11/10/18 19:20 U Epithel Cells (Auto) 7.0 /HPF (0-13.0) 11/10/18 19:20 Active Medications - Current Medications Current Medications: Generic Name Dose Route Start Last Admin Trade Name Freq PRN Reason Stop Dose Admin Acetaminophen 650 mg 11/10/18 04:44 Tylenol PO Q4H PRN Pain MILD(1-3)/Fever >100.5/OCONNELL Aspirin 81 mg 11/10/18 10:00 11/11/18 09:53 Baby Aspirin PO 81 mg DAILY MABEL Administration Cyanocobalamin 500 mcg 11/10/18 10:00 11/11/18 09:54 Vitamin B-12 PO 500 mcg DAILY MABEL Administration Dextrose 50 ml 11/10/18 04:39 D50w (25gm) Syringe IV PRN PRN Hypoglycemia Enoxaparin Sodium 30 mg 11/10/18 10:00 11/11/18 09:54 Lovenox SUB-Q 30 mg QDAY MABEL Administration Ferrous Sulfate 325 mg 11/10/18 10:00 11/11/18 09:53 Feosol PO 325 mg DAILY MABEL Administration Furosemide 40 mg 11/10/18 06:00 11/10/18 17:28 Lasix IV 40 mg 0600,1800 MABEL Administration Insulin Human Lispro 0 unit 11/10/18 07:30 11/10/18 22:30 Humalog SUB-Q 2 unit ACHS MABEL Administration Protocol Insulin Human Lispro 12 unit 11/10/18 17:33 11/10/18 18:10 Humalog SUB-Q 12 unit TIDAC MABEL Administration Lisinopril 10 mg 11/10/18 10:00 11/11/18 09:53 Zestril PO 10 mg QDAY MABEL Administration Metoprolol Tartrate 25 mg 11/10/18 10:00 11/11/18 09:52 Lopressor PO 25 mg Q12HR MABEL Administration Miscellaneous Medication 1 drop 11/10/18 10:00 Cosopt Pf Eye Drops OU BID [facility] Miscellaneous Medication 0.05 drops 11/10/18 10:00 Restasis 0.05% OU DAILY [facility] Morphine Sulfate 2 mg 11/10/18 04:44 Morphine IV Q4H PRN Pain, Moderate (4-6) Morphine Sulfate 2 mg 11/10/18 04:44 Morphine IV Q5MIN PRN Chest Pain unrelieved by NTG Multivit/Ca Carb/B Cmplx/FA/Prenat 1 cap 11/10/18 10:00 11/11/18 09:54 Renal Caps PO 1 cap QDAY MABEL Administration Nifedipine 60 mg 11/10/18 10:00 11/10/18 11:27 Procardia Xl PO 60 mg QDAY MABEL Administration Nitroglycerin 0.4 mg 11/10/18 04:44 Nitrostat SL Q5M PRN Chest Pain Ondansetron HCl 4 mg 11/10/18 04:44 Zofran IV Q8H PRN Nausea And Vomiting Oxycodone/Acetaminophen 1 tab 11/10/18 04:44 11/10/18 23:49 Percocet 5/325 PO 1 tab Q6H PRN Administration Pain, Moderate (4-6) Pantoprazole Sodium 40 mg 11/10/18 10:00 11/11/18 09:53 Protonix PO 40 mg BID MABEL Administration Pravastatin Sodium 80 mg 11/10/18 22:00 11/10/18 21:51 Pravachol PO 80 mg QHS MABEL Administration Sodium Chloride 10 ml 11/10/18 10:00 11/10/18 21:53 Sodium Chloride Flush Syringe 10 Ml IV 10 ml BID MABEL Administration Sodium Chloride 10 ml 11/10/18 04:44 Sodium Chloride Flush Syringe 10 Ml IV PRN PRN LINE FLUSH Spironolactone 25 mg 11/10/18 10:00 11/11/18 09:51 Aldactone PO 25 mg BID MABEL Administration Tramadol HCl 50 mg 11/10/18 04:44 11/11/18 05:29 Ultram PO 50 mg Q4H PRN Administration Pain, Moderate (4-6) Nutrition/Malnutrition Assess - Dietary Evaluation Nutrition/Malnutrition Findings: Nutrition Notes Start: 11/10/18 16:20 Freq: Status: Active Protocol: Document 11/10/18 16:20 RM (Rec: 11/10/18 16:24 RM [id number]) Nutrition Notes Need for Assessment generated from: MD Order,Education Initial or Follow up Assessment Current Diagnosis Diabetes Labs/Tests no A1c in record Subjective/Other Information Consulted for DM diet education. Pt stated that she had not been previously educated. Reviewed DM diet education. Gave handout. #1 Nutrition Diagnosis Food and nutrition-related knowledge deficit Etiology lack of prior education As Evidenced by Signs and Symptoms no prior knowledge of need for food and nutrition recommendations Nutrition Intervention Teaching Recipient Patient Learning Readiness Good Teaching Methods Discussion,Handout Response to Teaching Verbalize understanding Education Handouts Provided Carbohydrate counting for people with diabetes Barriers to Learning No Barriers RD phone number provided Yes Patient aware of follow up options Yes Goal #1 Utilize carbohydrate counting Revisit per MD consult or patient Sign Off request:
[2018-11-11] MEDS: HumaLOG SUB-Q SCH ×7 (10:27→22:21)
[2018-11-11] MEDS: PROCARDIA XL PO SCH (10:28)
[2018-11-11 10:33] LABS: Band Neutrophils # (Manual) 0.3 K/mm3; Basophils % (Manual) 0 % (0.0-1.8); Eosinophils % (Manual) 0 % (0.0-4.3); Total Cells Counted 100
[2018-11-11 10:34] LABS: Anisocytosis 1+; Hypochromasia Few; Platelet Estimate Consistent w Auto
[2018-11-11 10:35] LABS: Platelet Count 240 K/mm3 (140-440)
--- NOTE | 2018-11-11 12:51 | Vascular Lab Report ---
DUPLEX DOPPLER LOWER EXTREMITY VEINS, LEFT INDICATION: Left leg pain. TECHNIQUE: Duplex doppler imaging was performed through the veins of the left lower extremity using venous compr ession and other maneuvers. COMPARISON: None available. FINDINGS: Common femoral vein: Negative. Superficial femoral vein: Negative. Popliteal vein: Negative. Calf veins: Negative. Additional findings: There is a small to moderate left knee joint effusion IMPRESSION: 1. No sonographic evidence for DVT in the left lower extremity. 2. Left knee joint effusion. Signer Name: Baldomero Liu MD Signed: 11/11/2018 12:47 PM Workstation Name: [id number]
[2018-11-11] MEDS: SODIUM CHLORIDE FLUSH SYRINGE 10 ML IV SCH ×2 (14:19→22:19)
[2018-11-11] MEDS: PRAVACHOL PO SCH (22:18)
[2018-11-12 05:46] LABS: Calcium 9.8 mg/dL (8.4-10.2)
[2018-11-12] MEDS: LASIX IV SCH (06:12)
[2018-11-12] MEDS: HumaLOG SUB-Q SCH ×7 (09:04→21:35)
--- NOTE | 2018-11-12 10:18 | Progress Note ---
Assessment and Plan 1. Chronic Kidney Disease Required transient HD in the past 2. Atrioventricular Block, Second Degree s/p PPM 3. Essential (primary) Hypertension 4. Type 2 Diabetes Mellitus Without Complications 5. Nonrheumatic Mitral (valve) Stenosis s/p MV replacement (tissue valve) and TV repair (ring) October 12, 2018 Echo 11/09/2018: LVEF 31%, moderate RVE, sevee LAE, MY mean gradient 6.6 mm Hg, mild to moderate TR, moderately elevated RVSP 6. Atherosclerotic Heart Disease Of [place] Coronary Artery History of stent stenosis of CX s/p CABGx 2 October 12, 2018 7. Carotid artery stenosis 50-60% right and left ICA 08/2018 Recommendations: Change metoprolol to XL 100 mg po daily Upon discharge resume po lasix 80 mg dose once a day Subjective Date of service: 11/12/18 Principal diagnosis: Shortness of breath Interval history: Patient denies chest pain or shortness of breath No events overnight Objective Vital Signs Temp Pulse Pulse Resp BP Pulse Ox 11/12/18 06:57 99.4 F 94 H 105/31 99 11/12/18 06:28 92 H 11/12/18 05:03 99.5 F 89 20 125/55 99 11/12/18 01:00 86 20 11/11/18 23:45 99.1 F 87 20 138/70 90 11/11/18 22:18 104 H 131/52 11/11/18 19:30 99.2 F 104 H 20 131/52 95 11/11/18 17:25 99.1 F 90 18 132/52 98 11/11/18 13:12 100 H 20 11/11/18 13:07 97.9 F 89 20 137/65 97 - Physical Examination HEENT: Positive: PERRL Neck: Positive: neck supple Cardiac: Positive: Reg Rate and Rhythm Lungs: Positive: Normal Exam Neuro: Positive: Grossly Intact Abdomen: Positive: Unremarkable, Soft, Active Bowel Sounds Extremities: Absent: edema - Labs and Meds CBC 11/11/18 Range/Units 07:41 WBC 11.4 H (4.5-11.0) K/mm3 Plt Count 240 (140-440) K/mm3 Comprehensive Metabolic Panel 11/12/18 Range/Units 04:59 Sodium 140 (137-145) mmol/L Potassium 4.9 D (3.6-5.0) mmol/L Chloride 99.2 (98-107) mmol/L Carbon Dioxide 25 (22-30) mmol/L BUN 35 H (7-17) mg/dL Creatinine 2.1 H (0.7-1.2) mg/dL Glucose 135 H (65-100) mg/dL Calcium 9.8 (8.4-10.2) mg/dL - Allied health notes Allied health notes reviewed: nursing
[2018-11-12] MEDS: FEOSOL PO SCH (10:32)
[2018-11-12] MEDS: Renal Caps PO SCH (10:32)
[2018-11-12] MEDS: VITAMIN B-12 PO SCH (10:32)
[2018-11-12] MEDS: BABY ASPIRIN PO SCH (10:32)
[2018-11-12] MEDS: ALDACTONE PO SCH ×2 (10:33→21:34)
[2018-11-12] MEDS: PROTONIX PO SCH ×2 (10:33→21:34)
[2018-11-12] MEDS: LOVENOX SUB-Q SCH (10:33)
[2018-11-12] MEDS: LOPRESSOR PO SCH ×2 (10:34→21:34)
[2018-11-12] MEDS: ZESTRIL PO SCH (10:34)
[2018-11-12] MEDS: SODIUM CHLORIDE FLUSH SYRINGE 10 ML IV SCH ×2 (10:35→21:35)
[2018-11-12] MEDS: PROCARDIA XL PO SCH (10:35)
[2018-11-12] MEDS: TYLENOL PO PRN (12:33)
--- NOTE | 2018-11-12 12:51 | XRay Report ---
CHEST 2 VIEWS INDICATION: pulmonary edema. Acute shortness of breath COMPARISON: 11/10/2018 FINDINGS: Support devices: 2-lead pacemaker device remains in the same position Heart: Mild cardiomegaly is stable Lungs/pleura: Bilateral pulmonary venous congestion has decreased by 25%. Small right pleural effusio n has nearly resolved. Small left pleural effusion has decreased by 50%. Mild atelectatic changes are identified at the lung bases. No convincing pneumonia or pneumothorax. Additional findings: None. IMPRESSION: Mild improvement in CHF since 11/10/2018. BILATERAL KNEES, 3 VIEWS INDICATION: Chronic left knee pain. COMPARISON: None. IMPRESSION: Mild osteopenia is suspected. Within the right knee, there is mild medial compartment jaun int space narrowing and moderate retropatellar spurring. A moderate joint effusion extends to the sup rapatellar bursa. A small enthesophyte is noted in the superior patella. Within the left knee, there is mild medial compartment joint space narrowing. There is relative sparing of the lateral compartme nt and patellofemoral space. A moderate joint effusion extends to the suprapatellar bursa. There is no evidence for fracture or suspicious bony lesion. Signer Name: Chucky Moore Jr, MD Signed: 11/12/2018 12:46 PM Workstation Name: [id number]
--- NOTE | 2018-11-12 13:57 | Progress Note ---
Assessment and Plan - Patient Problems (1) Acute pulmonary edema Current Visit: Yes Status: Acute Plan to address problem: Continue on current diuretic regimen. Her second dose of lasix was discontinued secondary to rise in serum creatinine, which may likely be seen as we attempt to diurese. Will assess her volume status in am and likely will need to restart with at least lasix 40 mg IV daily. Strict I/O and daily weights. (2) Acute chest pain Current Visit: Yes Status: Acute Plan to address problem: Chest pain resolved at this time, further recommendations per cardiology. (3) Chronic kidney disease, stage III (moderate) Current Visit: No Status: Chronic Plan to address problem: Renal function is at her baseline, Will continue to monitor. (4) Hypertensive chronic kidney disease with stage 1 through stage 4 chronic kidney disease, or unspecified chronic kidney disease Current Visit: No Status: Chronic Plan to address problem: Will monitor on current antihypertensive regimen. (5) Type 2 diabetes mellitus with diabetic chronic kidney disease Current Visit: No Status: Chronic Qualifiers: Chronic kidney disease stage: stage 3 (moderate) Plan to address problem: Diabetes management per primary attending. Subjective Date of service: 11/12/18 Principal diagnosis: Shortness of breath Interval history: No acute changes overnight. Chest Xray does show mild improvement in pulmonary edema. She received her first dose of lasix 40 mg IV yesterday. Objective - Vital Signs Vital signs: Vital Signs - 12hr 11/12/18 11/12/18 11/12/18 05:03 06:28 06:57 Temperature 99.5 F 99.4 F Pulse Rate 89 92 H 94 H Respiratory 20 Rate Blood Pressure 125/55 105/31 O2 Sat by Pulse 99 99 Oximetry 11/12/18 11/12/18 11/12/18 09:00 10:33 10:34 Temperature Pulse Rate 92 H 93 H 93 H Respiratory Rate Blood Pressure 148/55 148/55 O2 Sat by Pulse Oximetry 11/12/18 11/12/18 11:01 11:53 Temperature 100.0 F H Pulse Rate 90 Respiratory 20 20 Rate Blood Pressure 121/55 O2 Sat by Pulse 100 Oximetry - General Appearance General appearance: well-developed, well-nourished EENT: ATNC, PERRL Neck: no JVD Respiratory: Present: Wheezes Cardiology: regular, S1S2 Gastrointestinal: normal, normoactive bowel sounds Integumentary: no rash, warm and dry Neurologic: no focal deficit Psychiatric: mood/affect appropriate, cooperative - Lab 11/11/18 07:41 11/12/18 04:59 Most recent lab results Calcium 9.8 mg/dL (8.4-10.2) 11/12/18 04:59 - Imaging Chest x-ray: report reviewed - Allied health notes Allied health notes reviewed: nursing Medications & Allergies - Medications Allergies/Adverse Reactions: Allergies No Known Allergies Allergy (Verified 07/18/16 23:52) Home Medications: Home Medications Medication Instructions Recorded Confirmed Last Taken Type NIFEdipine XL [Procardia Xl] 60 mg PO QDAY 12/30/15 11/11/18 08/03/18 08:00 History Cyanocobalamin (Vitamin B-12) 500 mcg PO DAILY 06/23/16 11/11/18 08/03/18 08:00 History [Vitamin B12] Lisinopril [Zestril TAB] 10 mg PO QDAY 06/23/16 11/11/18 08/03/18 08:00 History Cosopt Pf Eye Drops 1 drop OU BID 07/01/16 11/11/18 08/03/18 08:00 History Metoprolol [Lopressor TAB] 25 mg PO Q12HR #60 tablet 07/09/16 11/11/18 08/03/18 08:00 Rx Simvastatin [Zocor TAB] 40 mg PO QHS #30 tablet 07/09/16 11/11/18 08/02/18 Rx Protonix TAB 40 mg PO BID 07/20/16 11/11/18 08/03/18 08:00 History B Complex 11/Folic/C/Biot/Zinc 1 each PO QDAY 09/15/16 11/11/18 08/03/18 08:00 History [Dialyvite with Zinc Tablet] Insulin Lispro [Humalog 100 24 units SQ TIDAC 09/15/16 11/11/18 08/02/18 22:00 History UNITS/ML Kwikpen] Adult Low Dose Aspirin EC 81 mg PO DAILY 08/03/18 11/11/18 08/03/18 08:00 History Furosemide 80 mg PO BID 08/03/18 11/11/18 08/03/18 08:00 History Iron 325 mg PO DAILY 08/03/18 11/11/18 08/03/18 08:00 History Restasis 0.05% 0.05 drops OU DAILY 08/03/18 11/11/18 08/03/18 08:00 History Spironolactone 25 mg PO BID 08/03/18 11/10/18 08/03/18 08:00 History AtorvaSTATin [Lipitor] 20 mg PO BID 11/10/18 11/10/18 Unknown History Insulin Glargine,Hum.rec.anlog 3 units SUB-Q AC 11/10/18 11/10/18 Unknown History [Bogdanmicaelapeña Macenile] Pantoprazole [Protonix TAB] 40 mg PO QDAY 11/10/18 11/10/18 Unknown History Active Medications: Generic Name Dose Route Start Last Admin Trade Name Freq PRN Reason Stop Dose Admin Acetaminophen 650 mg 11/10/18 04:44 11/12/18 12:33 Tylenol PO 650 mg Q4H PRN Administration Pain MILD(1-3)/Fever >100.5/OCON[place]LL Aspirin 81 mg 11/10/18 10:00 11/12/18 10:32 Baby Aspirin PO 81 mg DAILY MABEL Administration Cyanocobalamin 500 mcg 11/10/18 10:00 11/12/18 10:32 Vitamin B-12 PO 500 mcg DAILY MABEL Administration Dextrose 50 ml 11/10/18 04:39 D50w (25gm) Syringe IV PRN PRN Hypoglycemia Enoxaparin Sodium 30 mg 11/10/18 10:00 11/12/18 10:33 Lovenox SUB-Q 30 mg QDAY MABEL Administration Ferrous Sulfate 325 mg 11/10/18 10:00 11/12/18 10:32 Feosol PO 325 mg DAILY MABEL Administration Insulin Human Lispro 0 unit 11/10/18 07:30 11/12/18 12:01 Humalog SUB-Q Not Given ACHS [facility] Protocol Insulin Human Lispro 12 unit 11/10/18 17:33 11/12/18 12:33 Humalog SUB-Q 12 unit TIDAC MABEL Administration Lisinopril 10 mg 11/10/18 10:00 11/12/18 10:34 Zestril PO 10 mg QDAY MABEL Administration Metoprolol Tartrate 50 mg 11/11/18 16:17 11/12/18 10:34 Lopressor PO 50 mg Q12HR MABEL Administration Miscellaneous Medication 1 drop 11/10/18 10:00 Cosopt Pf Eye Drops OU BID MABEL Miscellaneous Medication 0.05 drops 11/10/18 10:00 Restasis 0.05% OU DAILY MABEL Morphine Sulfate 2 mg 11/10/18 04:44 Morphine IV Q4H PRN Pain, Moderate (4-6) Morphine Sulfate 2 mg 11/10/18 04:44 Morphine IV Q5MIN PRN Chest Pain unrelieved by NTG Multivit/Ca Carb/B Cmplx/FA/Prenat 1 cap 11/10/18 10:00 11/12/18 10:32 Renal Caps PO 1 cap QDAY MABEL Administration Nifedipine 60 mg 11/10/18 10:00 11/12/18 10:35 Procardia Xl PO 60 mg QDAY MABEL Administration Nitroglycerin 0.4 mg 11/10/18 04:44 Nitrostat SL Q5M PRN Chest Pain Ondansetron HCl 4 mg 11/10/18 04:44 Zofran IV Q8H PRN Nausea And Vomiting Oxycodone/Acetaminophen 1 tab 11/10/18 04:44 11/10/18 23:49 Percocet 5/325 PO 1 tab Q6H PRN Administration Pain, Moderate (4-6) Pantoprazole Sodium 40 mg 11/10/18 10:00 11/12/18 10:33 Protonix PO 40 mg BID MABEL Administration Pravastatin Sodium 80 mg 11/10/18 22:00 11/11/18 22:18 Pravachol PO 80 mg QHS MABEL Administration Sodium Chloride 10 ml 11/10/18 10:00 11/12/18 10:35 Sodium Chloride Flush Syringe 10 Ml IV 10 ml BID MABEL Administration Sodium Chloride 10 ml 11/10/18 04:44 Sodium Chloride Flush Syringe 10 Ml IV PRN PRN LINE FLUSH Spironolactone 25 mg 11/10/18 10:00 11/12/18 10:33 Aldactone PO 25 mg BID MABEL Administration Tramadol HCl 50 mg 11/10/18 04:44 11/11/18 05:29 Ultram PO 50 mg Q4H PRN Administration Pain, Moderate (4-6)
--- NOTE | 2018-11-12 14:30 | Progress Note ---
Assessment and Plan Assessment and plan: 73-year-old woman with known coronary artery disease status post recent bypass who presents with chest pain Chest pain Evaluated by cardiology Medical management Consult cardiology, Acute on chronic diastolic CHF exacerbation echo in july shows preserved EF IV lasix, optimize cardiac meds, Cardiology following Type 2 diabetes Sliding scale insulin, resume home insulins Chronic kidney disease Nephrology following Creatinine higher today. Lasix given this morning. Will hold pm dose Bilateral knee swelling with likely osteoarthritis Analgesics for pain Cannot give NSAID because of renal function DVT prophylaxis with Lovenox Fever. Obtain blood cultures History Interval history: Chest pain resolved Shortness of breath is less Knee pain and swelling Hospitalist Physical - Physical exam Narrative exam: Gen: Not in acute distress, lying in bed,obese HEENT: Normocephalic, atraumatic Neck: supple, no JVD Heart: S1 and S2 reg, no murmurs, rubs or gallop Lungs: Bilateral basal crackles, no wheeze Abd: soft, non tender, non distended, normal BS Ext: Tender both knees, swollen, no clubbing, no cyanosis, Neuro: Awake,alert, moves all ext, non focal - Constitutional Vitals: Temp Pulse Resp BP Pulse Ox 100.0 F H 90 20 121/55 100 11/12/18 11:53 11/12/18 11:53 11/12/18 11:53 11/12/18 11:53 11/12/18 11:53 General appearance: Present: no acute distress Results - Labs CBC & Chem 7: 11/11/18 07:41 11/12/18 04:59 Labs: Laboratory Last Values WBC 11.4 K/mm3 (4.5-11.0) H 11/11/18 07:41 RBC 3.26 M/mm3 (3.65-5.03) L 11/11/18 07:41 Hgb 8.6 gm/dl (10.1-14.3) L 11/11/18 07:41 Hct 25.8 % (30.3-42.9) L 11/11/18 07:41 MCV 79 fl (79-97) 11/11/18 07:41 MCH 26 pg (28-32) L 11/11/18 07:41 MCHC 33 % (30-34) 11/11/18 07:41 RDW 20.6 % (13.2-15.2) H 11/11/18 07:41 Plt Count 240 K/mm3 (140-440) 11/11/18 07:41 Lymph % (Auto) 13.8 % (13.4-35.0) 11/10/18 02:37 [place] % (Auto) 13.2 % (0.0-7.3) H 11/10/18 02:37 Eos % (Auto) 3.2 % (0.0-4.3) 11/10/18 02:37 Baso % (Auto) 1.1 % (0.0-1.8) 11/10/18 02:37 Lymph # 1.0 K/mm3 (1.2-5.4) L 11/10/18 02:37 [place] # 1.0 K/mm3 (0.0-0.8) H 11/10/18 02:37 Eos # 0.2 K/mm3 (0.0-0.4) 11/10/18 02:37 Baso # 0.1 K/mm3 (0.0-0.1) 11/10/18 02:37 Add Manual Diff Complete 11/11/18 07:41 Total Counted 100 11/11/18 07:41 Seg Neutrophils % 68.7 % (40.0-70.0) 11/10/18 02:37 Seg Neuts % (Manual) 78.0 % (40.0-70.0) H 11/11/18 07:41 3.0 % 11/11/18 07:41 9.0 % (13.4-35.0) L 11/11/18 07:41 Reactive Lymphs % (Man) 0 % 11/11/18 07:41 10.0 % (0.0-7.3) H 11/11/18 07:41 0 % (0.0-4.3) 11/11/18 07:41 0 % (0.0-1.8) 11/11/18 07:41 0 % 11/11/18 07:41 0 % 11/11/18 07:41 0 % 11/11/18 07:41 0 % 11/11/18 07:41 Nucleated RBC % Not Reportable 11/11/18 07:41 Seg Neutrophils # 5.1 K/mm3 (1.8-7.7) 11/10/18 02:37 Seg Neutrophils # Man 8.9 K/mm3 (1.8-7.7) H 11/11/18 07:41 Band Neutrophils # 0.3 K/mm3 11/11/18 07:41 1.0 K/mm3 (1.2-5.4) L 11/11/18 07:41 Abs React Lymphs (Man) 0.0 K/mm3 11/11/18 07:41 1.1 K/mm3 (0.0-0.8) H 11/11/18 07:41 0.0 K/mm3 (0.0-0.4) 11/11/18 07:41 0.0 K/mm3 (0.0-0.1) 11/11/18 07:41 0.0 K/mm3 11/11/18 07:41 0.0 K/mm3 11/11/18 07:41 0.0 K/mm3 11/11/18 07:41 Blast Cells # 0.0 K/mm3 11/11/18 07:41 WBC Morphology Not Reportable 11/11/18 07:41 Hypersegmented Neuts Not Reportable 11/11/18 07:41 Hyposegmented Neuts Not Reportable 11/11/18 07:41 Hypogranular Neuts Not Reportable 11/11/18 07:41 Not Reportable 11/11/18 07:41 Not Reportable 11/11/18 07:41 Not Reportable 11/11/18 07:41 Not Reportable 11/11/18 07:41 Not Reportable 11/11/18 07:41 Not Reportable 11/11/18 07:41 Consistent w auto 11/11/18 07:41 Not Reportable 11/11/18 07:41 Plt Clumps, EDTA Not Reportable 11/11/18 07:41 Not Reportable 11/11/18 07:41 Not Reportable 11/11/18 07:41 Not Reportable 11/11/18 07:41 Plt Morphology Comment Not Reportable 11/11/18 07:41 RBC Morphology Not Reportable 11/11/18 07:41 Dimorphic RBCs Not Reportable 11/11/18 07:41 Not Reportable 11/11/18 07:41 Few 11/11/18 07:41 Not Reportable 11/11/18 07:41 1+ 11/11/18 07:41 1+ 11/11/18 07:41 Not Reportable 11/11/18 07:41 Not Reportable 11/11/18 07:41 Not Reportable 11/11/18 07:41 Not Reportable 11/11/18 07:41 Not Reportable 11/11/18 07:41 Not Reportable 11/11/18 07:41 Not Reportable 11/11/18 07:41 Not Reportable 11/11/18 07:41 Not Reportable 11/11/18 07:41 Not Reportable 11/11/18 07:41 Not Reportable 11/11/18 07:41 Not Reportable 11/11/18 07:41 Not Reportable 11/11/18 07:41 Not Reportable 11/11/18 07:41 Acanthocytes (Spur) Not Reportable 11/11/18 07:41 Rouleaux Not Reportable 11/11/18 07:41 Not Reportable 11/11/18 07:41 Not Reportable 11/11/18 07:41 Not Reportable 11/11/18 07:41 Not Reportable 11/11/18 07:41 Hem Pathologist Commnt No 11/11/18 07:41 PT 17.0 Sec. (12.2-14.9) H 11/10/18 02:37 INR 1.42 (0.87-1.13) H 11/10/18 02:37 APTT 32.7 Sec. (24.2-36.6) 11/10/18 02:37 Sodium 140 mmol/L (137-145) 11/12/18 04:59 Potassium 4.9 mmol/L (3.6-5.0) D 11/12/18 04:59 Chloride 99.2 mmol/L (98-107) 11/12/18 04:59 Carbon Dioxide 25 mmol/L (22-30) 11/12/18 04:59 21 mmol/L 11/12/18 04:59 BUN 35 mg/dL (7-17) H 11/12/18 04:59 2.1 mg/dL (0.7-1.2) H 11/12/18 04:59 Estimated GFR 28 ml/min 11/12/18 04:59 17 % 11/12/18 04:59 Glucose 135 mg/dL (65-100) H 11/12/18 04:59 POC Glucose 111 (70-105) H 11/12/18 11:59 Calcium 9.8 mg/dL (8.4-10.2) 11/12/18 04:59 0.50 mg/dL (0.1-1.2) 11/10/18 02:37 AST 16 units/L (5-40) 11/10/18 02:37 ALT 13 units/L (7-56) 11/10/18 02:37 128 units/L (35-129) 11/10/18 02:37 0.174 ng/mL (0.00-0.029) H* 11/10/18 09:58 NT-Pro-B Natriuret Pep 3370 pg/mL (0-900) H 11/11/18 15:02 7.1 g/dL (6.3-8.2) 11/10/18 02:37 3.6 g/dL (3.9-5) L 11/10/18 02:37 1.0 % 11/10/18 02:37 Triglycerides 106 mg/dL (2-149) 11/10/18 02:37 Cholesterol 113 mg/dL (50-199) 11/10/18 02:37 64 mg/dL (50-130) 11/10/18 02:37 33 mg/dL (40-59) L 11/10/18 02:37 3.42 % 11/10/18 02:37 Yellow (Yellow) 11/10/18 19:20 Slightly-cloudy (Clear) 11/10/18 19:20 7.0 (5.0-7.0) 11/10/18 19:20 Ur Specific [place] 1.012 (1.003-1.030) 11/10/18 19:20 <15 mg/dl mg/dL (Negative) 11/10/18 19:20 Neg mg/dL (Negative) 11/10/18 19:20 Neg mg/dL (Negative) 11/10/18 19:20 Neg (Negative) 11/10/18 19:20 Neg (Negative) 11/10/18 19:20 Neg (Negative) 11/10/18 19:20 < 2.0 mg/dL (<2.0) 11/10/18 19:20 Ur Leukocyte Esterase Neg (Negative) 11/10/18 19:20 < 1.0 /HPF (0.0-6.0) 11/10/18 19:20 2.0 /HPF (0.0-6.0) 11/10/18 19:20 U Epithel Cells (Auto) 7.0 /HPF (0-13.0) 11/10/18 19:20 Active Medications - Current Medications Current Medications: Generic Name Dose Route Start Last Admin Trade Name Freq PRN Reason Stop Dose Admin Acetaminophen 650 mg 11/10/18 04:44 11/12/18 12:33 Tylenol PO 650 mg Q4H PRN Administration Pain MILD(1-3)/Fever >100.5/OCONNELL Aspirin 81 mg 11/10/18 10:00 11/12/18 10:32 Baby Aspirin PO 81 mg DAILY MABEL Administration Cyanocobalamin 500 mcg 11/10/18 10:00 11/12/18 10:32 Vitamin B-12 PO 500 mcg DAILY MABEL Administration Dextrose 50 ml 11/10/18 04:39 D50w (25gm) Syringe IV PRN PRN Hypoglycemia Enoxaparin Sodium 30 mg 11/10/18 10:00 11/12/18 10:33 Lovenox SUB-Q 30 mg QDAY MABEL Administration Ferrous Sulfate 325 mg 11/10/18 10:00 11/12/18 10:32 Feosol PO 325 mg DAILY MABEL Administration Insulin Human Lispro 0 unit 11/10/18 07:30 11/12/18 12:01 Humalog SUB-Q Not Given ACHS [facility] Protocol Insulin Human Lispro 12 unit 11/10/18 17:33 11/12/18 12:33 Humalog SUB-Q 12 unit TIDAC [facility] Administration Lisinopril 10 mg 11/10/18 10:00 11/12/18 10:34 Zestril PO 10 mg QDAY [facility] Administration Metoprolol Tartrate 50 mg 11/11/18 16:17 11/12/18 10:34 Lopressor PO 50 mg Q12HR MABEL Administration Miscellaneous Medication 1 drop 11/10/18 10:00 Cosopt Pf Eye Drops OU BID [facility] Miscellaneous Medication 0.05 drops 11/10/18 10:00 Restasis 0.05% OU DAILY [facility] Morphine Sulfate 2 mg 11/10/18 04:44 Morphine IV Q4H PRN Pain, Moderate (4-6) Morphine Sulfate 2 mg 11/10/18 04:44 Morphine IV Q5MIN PRN Chest Pain unrelieved by NTG Multivit/Ca Carb/B Cmplx/FA/Prenat 1 cap 11/10/18 10:00 11/12/18 10:32 Renal Caps PO 1 cap QDAY MABEL Administration Nifedipine 60 mg 11/10/18 10:00 11/12/18 10:35 Procardia Xl PO 60 mg QDAY MABEL Administration Nitroglycerin 0.4 mg 11/10/18 04:44 Nitrostat SL Q5M PRN Chest Pain Ondansetron HCl 4 mg 11/10/18 04:44 Zofran IV Q8H PRN Nausea And Vomiting Oxycodone/Acetaminophen 1 tab 11/10/18 04:44 11/10/18 23:49 Percocet 5/325 PO 1 tab Q6H PRN Administration Pain, Moderate (4-6) Pantoprazole Sodium 40 mg 11/10/18 10:00 11/12/18 10:33 Protonix PO 40 mg BID MABEL Administration Pravastatin Sodium 80 mg 11/10/18 22:00 11/11/18 22:18 Pravachol PO 80 mg QHS MABEL Administration Sodium Chloride 10 ml 11/10/18 10:00 11/12/18 10:35 Sodium Chloride Flush Syringe 10 Ml IV 10 ml BID MABEL Administration Sodium Chloride 10 ml 11/10/18 04:44 Sodium Chloride Flush Syringe 10 Ml IV PRN PRN LINE FLUSH Spironolactone 25 mg 11/10/18 10:00 11/12/18 10:33 Aldactone PO 25 mg BID MABEL Administration Tramadol HCl 50 mg 11/10/18 04:44 11/11/18 05:29 Ultram PO 50 mg Q4H PRN Administration Pain, Moderate (4-6) Nutrition/Malnutrition Assess - Dietary Evaluation Nutrition/Malnutrition Findings: Nutrition Notes Start: 11/10/18 16:20 Freq: Status: Active Protocol: Document 11/10/18 16:20 RM (Rec: 11/10/18 16:24 RM [id number]) Nutrition Notes Need for Assessment generated from: MD Order,Education Initial or Follow up Assessment Current Diagnosis Diabetes Labs/Tests no A1c in record Subjective/Other Information Consulted for DM diet education. Pt stated that she had not been previously educated. Reviewed DM diet education. Gave handout. #1 Nutrition Diagnosis Food and nutrition-related knowledge deficit Etiology lack of prior education As Evidenced by Signs and Symptoms no prior knowledge of need for food and nutrition recommendations Nutrition Intervention Teaching Recipient Patient Learning Readiness Good Teaching Methods Discussion,Handout Response to Teaching Verbalize understanding Education Handouts Provided Carbohydrate counting for people with diabetes Barriers to Learning No Barriers RD phone number provided Yes Patient aware of follow up options Yes Goal #1 Utilize carbohydrate counting Revisit per MD consult or patient Sign Off request:
[2018-11-12 15:39] LABS: Hematocrit 24.4 % (30.3-42.9); Hemoglobin 8.2 gm/dl (10.1-14.3); Mean Corpuscular HGB Conc 34 % (30-34); Mean Corpuscular Volume 78 fl (79-97); Platelet Count 261 K/mm3 (140-440); Red Blood Count 3.15 M/mm3 (3.65-5.03)
[2018-11-12 15:44] LABS: Red Cell Distribution Width 20.7 % (13.2-15.2)
[2018-11-12] MEDS: PRAVACHOL PO SCH (21:35)
[2018-11-13] MEDS: TYLENOL PO PRN (00:29)
[2018-11-13 06:16] LABS: Calcium 9.1 mg/dL (8.4-10.2)
[2018-11-13] MEDS: HumaLOG SUB-Q SCH ×4 (08:12→12:23)
[2018-11-13] MEDS: FEOSOL PO SCH (09:38)
[2018-11-13] MEDS: LOVENOX SUB-Q SCH (09:38)
[2018-11-13] MEDS: VITAMIN B-12 PO SCH (09:38)
[2018-11-13] MEDS: Renal Caps PO SCH (09:38)
[2018-11-13] MEDS: PROTONIX PO SCH (09:38)
[2018-11-13] MEDS: BABY ASPIRIN PO SCH (09:38)
[2018-11-13] MEDS: SODIUM CHLORIDE FLUSH SYRINGE 10 ML IV SCH (09:39)
--- NOTE | 2018-11-13 10:05 | Progress Note ---
Assessment and Plan 1. Coronary artery disease status post CABG 2. Status post mitral valve replacement 3. Presence of cardiac pacemaker 4. Essential hypertension 5. Type 2 diabetes mellitus Plan Patient appears to be stable and denies any specific complaints at this time will continue present management . Subjective Date of service: 11/13/18 Principal diagnosis: Shortness of breath Interval history: No specific cardiac complains. Objective Vital Signs Temp Pulse Resp BP Pulse Ox 11/13/18 07:46 97.5 F L 18 116/42 11/13/18 04:00 91 H 11/13/18 03:46 97.9 F 91 H 18 104/55 99 11/12/18 22:56 98.6 F 85 20 98/40 97 11/12/18 19:12 98.7 F 91 H 18 113/47 98 11/12/18 15:28 99.0 F 91 H 18 112/61 99 11/12/18 11:53 100.0 F H 90 20 121/55 100 11/12/18 11:01 20 11/12/18 10:34 93 H 148/55 11/12/18 10:33 93 H 148/55 - Physical Examination General: Appears Well, No Apparent Distress HEENT: Positive: PERRL Neck: Positive: neck supple. Negative: JVD/HJR Cardiac: Positive: Regular Rate, S1/S2, S3, PMI, Dilated, Laterally Displaced Lungs: Positive: clear to auscultation, No Wheeze, Rales, Rhonchi Neuro: Positive: Grossly Intact Abdomen: Positive: Unremarkable, Soft, Active Bowel Sounds Extremities: Absent: edema - Labs and Meds CBC 11/12/18 Range/Units 15:03 WBC 10.8 (4.5-11.0) K/mm3 RBC 3.15 L (3.65-5.03) M/mm3 Hgb 8.2 L (10.1-14.3) gm/dl Hct 24.4 L (30.3-42.9) % Plt Count 261 (140-440) K/mm3 Comprehensive Metabolic Panel 11/13/18 Range/Units 04:31 Sodium 139 (137-145) mmol/L Potassium 4.3 (3.6-5.0) mmol/L Chloride 99.7 (98-107) mmol/L Carbon Dioxide 26 (22-30) mmol/L BUN 43 H (7-17) mg/dL Creatinine 2.5 H (0.7-1.2) mg/dL Glucose 172 H (65-100) mg/dL Calcium 9.1 (8.4-10.2) mg/dL - Allied health notes Allied health notes reviewed: nursing
[2018-11-13] MEDS: PERCOCET 5/325 PO PRN (10:43)
[2018-11-13] MEDS: PROCARDIA XL PO SCH (10:45)
[2018-11-13] MEDS: LOPRESSOR PO SCH (10:45)
[2018-11-13] MEDS: ALDACTONE PO SCH (10:45)
[2018-11-13 10:46] VITALS: BP 107/56
[2018-11-13] MEDS: ZESTRIL PO SCH (10:46)
--- NOTE | 2018-11-13 11:52 | Progress Note ---
Assessment and Plan - Patient Problems (1) Acute pulmonary edema Current Visit: Yes Status: Acute Plan to address problem: Will have her hold off on lasix for today and then plan to have her restart at a lower dose of lasix 20 mg daily. From a renal standpoint patient can be discharged with instructions to follow up with Dr Howe in 2 weeks post dis charge, (2) Acute chest pain Current Visit: Yes Status: Acute Plan to address problem: Chest pain resolved at this time, further recommendations per cardiology. (3) Chronic kidney disease, stage III (moderate) Current Visit: No Status: Chronic Plan to address problem: Renal function is at her baseline, Will continue to monitor. (4) Hypertensive chronic kidney disease with stage 1 through stage 4 chronic kidney disease, or unspecified chronic kidney disease Current Visit: No Status: Chronic Plan to address problem: Will monitor on current antihypertensive regimen. Would hold ACEi until follow up with nephrology in the office. (5) Type 2 diabetes mellitus with diabetic chronic kidney disease Current Visit: No Status: Chronic Qualifiers: Chronic kidney disease stage: stage 3 (moderate) Plan to address problem: Diabetes management per primary attending. Subjective Date of service: 11/13/18 Principal diagnosis: Shortness of breath Interval history: No acute changes, mild elevation in serum creatinine. Will hold on further diuretic today. Patient is anxious to go home. Objective - Vital Signs Vital signs: Vital Signs - 12hr 11/13/18 11/13/18 11/13/18 03:46 04:00 07:46 Temperature 97.9 F 97.5 F L Pulse Rate 91 H 91 H Respiratory 18 18 Rate Blood Pressure 104/55 116/42 O2 Sat by Pulse 99 Oximetry 11/13/18 11/13/18 11/13/18 09:58 10:45 10:46 Temperature Pulse Rate 92 H 92 H Respiratory 20 Rate Blood Pressure 107/56 107/56 O2 Sat by Pulse Oximetry - General Appearance General appearance: well-developed, appears stated age EENT: ATNC Neck: no JVD Respiratory: Present: Clear to Ascultation Cardiology: regular, S1S2 Gastrointestinal: normal, normoactive bowel sounds Integumentary: no rash, warm and dry Neurologic: no focal deficit, alert and oriented x3 Musculoskeletal: other (-edema ) Psychiatric: mood/affect appropriate, cooperative - Lab 11/12/18 15:03 11/13/18 04:31 Most recent lab results Calcium 9.1 mg/dL (8.4-10.2) 11/13/18 04:31 - Allied health notes Allied health notes reviewed: nursing Medications & Allergies - Medications Allergies/Adverse Reactions: Allergies No Known Allergies Allergy (Verified 07/18/16 23:52) Home Medications: Home Medications Medication Instructions Recorded Confirmed Last Taken Type NIFEdipine XL [Procardia Xl] 60 mg PO QDAY 12/30/15 11/11/18 08/03/18 08:00 History Cyanocobalamin (Vitamin B-12) 500 mcg PO DAILY 06/23/16 11/11/18 08/03/18 08:00 History [Vitamin B12] Lisinopril [Zestril TAB] 10 mg PO QDAY 06/23/16 11/11/18 08/03/18 08:00 History Cosopt Pf Eye Drops 1 drop OU BID 07/01/16 11/11/18 08/03/18 08:00 History Metoprolol [Lopressor TAB] 25 mg PO Q12HR #60 tablet 07/09/16 11/11/18 08/03/18 08:00 Rx Simvastatin [Zocor TAB] 40 mg PO QHS #30 tablet 07/09/16 11/11/18 08/02/18 Rx Protonix TAB 40 mg PO BID 07/20/16 11/11/18 08/03/18 08:00 History B Complex 11/Folic/C/Biot/Zinc 1 each PO QDAY 09/15/16 11/11/18 08/03/18 08:00 History [Dialyvite with Zinc Tablet] Insulin Lispro [Humalog 100 24 units SQ TIDAC 09/15/16 11/11/18 08/02/18 22:00 History UNITS/ML Kwikpen] Adult Low Dose Aspirin EC 81 mg PO DAILY 08/03/18 11/11/18 08/03/18 08:00 History Furosemide 80 mg PO BID 08/03/18 11/11/18 08/03/18 08:00 History Iron 325 mg PO DAILY 08/03/18 11/11/18 08/03/18 08:00 History Restasis 0.05% 0.05 drops OU DAILY 08/03/18 11/11/18 08/03/18 08:00 History Spironolactone 25 mg PO BID 08/03/18 11/10/18 08/03/18 08:00 History AtorvaSTATin [Lipitor] 20 mg PO BID 11/10/18 11/10/18 Unknown History Insulin Glargine,Hum.rec.anlog 3 units SUB-Q AC 11/10/18 11/10/18 Unknown H istory [Toujeo Solostar] Pantoprazole [Protonix TAB] 40 mg PO QDAY 11/10/18 11/10/18 Unknown History Active Medications: Generic Name Dose Route Start Last Admin Trade Name Freq PRN Reason Stop Dose Admin Acetaminophen 650 mg 11/10/18 04:44 11/13/18 00:29 Tylenol PO 650 mg Q4H PRN Administration Pain MILD(1-3)/Fever >100.5/OCONNELL Aspirin 81 mg 11/10/18 10:00 11/13/18 09:38 Baby Aspirin PO 81 mg DAILY MABEL Administration Cyanocobalamin 500 mcg 11/10/18 10:00 11/13/18 09:38 Vitamin B-12 PO 500 mcg DAILY MABEL Administration Dextrose 50 ml 11/10/18 04:39 D50w (25gm) Syringe IV PRN PRN Hypoglycemia Enoxaparin Sodium 30 mg 11/10/18 10:00 11/13/18 09:38 Lovenox SUB-Q 30 mg QDAY MABEL Administration Ferrous Sulfate 325 mg 11/10/18 10:00 11/13/18 09:38 Feosol PO 325 mg DAILY MABEL Administration Insulin Human Lispro 0 unit 11/10/18 07:30 11/13/18 08:12 Humalog SUB-Q 2 unit ACHS MABEL Administration Protocol Insulin Human Lispro 12 unit 11/10/18 17:33 11/13/18 08:12 Humalog SUB-Q 12 unit TIDAC MABEL Administration Lisinopril 10 mg 11/10/18 10:00 11/13/18 10:46 Zestril PO Not Given [facility] Metoprolol Tartrate 50 mg 11/11/18 16:17 11/13/18 10:45 Lopressor PO 50 mg Q12HR MABEL Administration Miscellaneous Medication 1 drop 11/10/18 10:00 Cosopt Pf Eye Drops OU BID MABEL Miscellaneous Medication 0.05 drops 11/10/18 10:00 Restasis 0.05% OU DAILY MABEL Morphine Sulfate 2 mg 11/10/18 04:44 Morphine IV Q4H PRN Pain, Moderate (4-6) Morphine Sulfate 2 mg 11/10/18 04:44 Morphine IV Q5MIN PRN Chest Pain unrelieved by NTG Multivit/Ca Carb/B Cmplx/FA/Prenat 1 cap 11/10/18 10:00 11/13/18 09:38 Renal Caps PO 1 cap QDAY MABEL Administration Nifedipine 60 mg 11/10/18 10:00 11/13/18 10:45 Procardia Xl PO Not Given [facility] Nitroglycerin 0.4 mg 11/10/18 04:44 Nitrostat SL Q5M PRN Chest Pain Ondansetron HCl 4 mg 11/10/18 04:44 Zofran IV Q8H PRN Nausea And Vomiting Oxycodone/Acetaminophen 1 tab 11/10/18 04:44 11/13/18 10:43 Percocet 5/325 PO 1 tab Q6H PRN Administration Pain, Moderate (4-6) Pantoprazole Sodium 40 mg 11/10/18 10:00 11/13/18 09:38 Protonix PO 40 mg BID MABEL Administration Pravastatin Sodium 80 mg 11/10/18 22:00 11/12/18 21:35 Pravachol PO 80 mg QHS MABEL Administration Sodium Chloride 10 ml 11/10/18 10:00 11/13/18 09:39 Sodium Chloride Flush Syringe 10 Ml IV 10 ml BID MABEL Administration Sodium Chloride 10 ml 11/10/18 04:44 Sodium Chloride Flush Syringe 10 Ml IV PRN PRN LINE FLUSH Spironolactone 25 mg 11/10/18 10:00 11/13/18 10:45 Aldactone PO Not Given BID MABEL Tramadol HCl 50 mg 11/10/18 04:44 11/11/18 05:29 Ultram PO 50 mg Q4H PRN Administration Pain, Moderate (4-6)
--- NOTE | 2018-11-13 12:11 | Discharge Summary ---
Providers - Providers Date of Admission: 11/10/18 04:30 Date of discharge: 11/13/18 Attending physician: MEMIE CHAPMAN 11/10/18 Consult to Cardiac Rehabilitation [CONS] Routine Reason For Exam: Phase I 11/10/18 04:36 Consult to Physician [CONS] Routine Comment: Consulting Provider: HOMERO TREADWELL Physician Instructions: Reason For Exam: Cp 11/10/18 04:39 Consult to Dietitian/Nutrition [CONS] Routine Physician Instructions: Reason For Exam: Reason for Consult: Diet education 11/10/18 04:53 Consult to Physician [CONS] Routine Comment: Consulting Provider: ANGEL HOWE Physician Instructions: Reason For Exam: ckd on hd [facility] Condition: Fair Hospital course: Patient is 73-year-old woman with history of coronary artery disease, mitral stenosis, chronic kidney disease. She has had history of CABG 3 weeks ago at [facility]. She presented with chest pain. She was seen and evaluated in Ed and admitted. She was seen by cardiology who noted she was stable for discharge. However she developed fever and blood cultures were negative after 24 hrs so was discharged home. Total time spent on discharge, 32 mins Disposition: [id number]-06 HOME UNDER HOME HLTH - Discharge Diagnoses (1) Acute on chronic diastolic (congestive) heart failure Status: Acute (2) Chest pain Status: Acute (3) Diabetes mellitus type 2 in obese Status: Acute (4) CKD (chronic kidney disease) Status: Acute Core Measure Documentation - Palliative Care Palliative Care/ Comfort Measures: Not Applicable - Core Measures Any of the following diagnoses?: heart failure - Heart Failure Discharge Requirements ANNETTE/ARB for LVSD if EF <40%: Not Applicable Beta kaylee at discharge: Yes Exam - Constitutional Vitals: Temp Pulse Resp BP Pulse Ox 97.5 F L 92 H 20 107/56 99 11/13/18 07:46 11/13/18 10:46 11/13/18 09:58 11/13/18 10:46 11/13/18 03:46 Plan Activity: no restrictions Diet: low fat, low cholesterol, low salt, renal Additional Instructions: 1.Follow up with PCP in 1 week. 2.Follow up with Dr. Sanchez in 1 week. 3.Follow up with Dr. Howe in 1 week. 4.Repeat blood BMP in 1 week Follow up with: CUATE ENGLISHRHINECLIFF MD CRESENCIO [Primary Care Provider] - 3-5 Days Prescriptions: Furosemide [Lasix TAB] 20 mg PO QDAY #30 tablet
== END 2018-11-13 15:50 | disposition home health service (06) | DRG 291 ==
LOC: ED 01:57 → 4A 04:30
PROVIDERS: ADMIT Internal Medicine; ATTEND Internal Medicine
DX: I13.0 Hypertensive heart and chronic kidney disease with heart failure and stage 1 through stage 4 chronic kidney disease, or unspecified chronic kidney disease (principal); I50.33 Acute on chronic diastolic (congestive) heart failure; N25.81 Secondary hyperparathyroidism of renal origin; I27.20 Pulmonary hypertension, unspecified; I44.1 Atrioventricular block, second degree; I65.23 Occlusion and stenosis of bilateral carotid arteries; K21.9 Gastro-esophageal reflux disease without esophagitis; E11.22 Type 2 diabetes mellitus with diabetic chronic kidney disease; N18.3 Chronic kidney disease, stage 3 (moderate); I25.10 Atherosclerotic heart disease of native coronary artery without angina pectoris; Z95.0 Presence of cardiac pacemaker; Z95.1 Presence of aortocoronary bypass graft; Z95.5 Presence of coronary angioplasty implant and graft; Z82.49 Family history of ischemic heart disease and other diseases of the circulatory system; Z79.4 Long term (current) use of insulin; Z79.899 Other long term (current) drug therapy; I25.2 Old myocardial infarction; Z95.4 Presence of other heart-valve replacement
CPT/HCPCS: 36415; 71045; 71046; 80048; 80053; 80061; 81001; 82962; 83880; 84484; 85007; 85025; 85027; 85610; 85730; 87040; 87076; 87186; 93005; 93010; G0378; A9270-GY; J1650; J1815; J1940

== ENCOUNTER 2018-11-14 08:58 | Inpatient (IN) | payer MEDICARE ==
--- NOTE | 2018-11-14 12:04 | Emergency Department Report ---
ED General Adult HPI - General Chief complaint: Medical Clearance Stated complaint: MEDICAL CLEARANCE Time Seen by Provider: 11/14/18 11:53 Source: patient, family Mode of arrival: Wheelchair Limitations: Physical Limitation - History of Present Illness Initial comments: This is a 73-year-old female who has been doing well since her recent discharge from the hospital. As far as I can tell she was not diagnosed with any infectious process. However, I do note that she had blood cultures drawn with 1 pad of 2 bottles positive cocci in clusters. Apparently the patient received a call from the hospitalist service yesterday to return to the emergency department for antibiotic treatment. She is not complaining of fever or chills nor has she experienced this. She has not been on dialysis for a few years now. The family states that she was admitted for chest pain. I do find that she was treated for pulmonary edema as well. Recent nephrology note indicates: - Patient Problems (1) Acute pulmonary edema Current Visit: Yes Status: Acute Plan to address problem: Continue on current diuretic regimen. Her second dose of lasix was discontinued secondary to rise in serum creatinine, which may likely be seen as we attempt to diurese. Will assess her volume status in am and likely will need to restart with at least lasix 40 mg IV daily. Strict I/O and daily weights. (2) Acute chest pain Current Visit: Yes Status: Acute Plan to address problem: Chest pain resolved at this time, further recommendations per cardiology. (3) Chronic kidney disease, stage III (moderate) Current Visit: No Status: Chronic Plan to address problem: Renal function is at her baseline, Will continue to monitor. (4) Hypertensive chronic kidney disease with stage 1 through stage 4 chronic kidney disease, or unspecified chronic kidney disease Current Visit: No Status: Chronic Plan to address problem: Will monitor on current antihypertensive regimen. (5) Type 2 diabetes mellitus with diabetic chronic kidney disease Current Visit: No Status: Chronic Qualifiers: Chronic kidney disease stage: stage 3 (moderate) Plan to address problem: Diabetes management per primary attending. - Related Data Home Medications Medication Instructions Recorded Confirmed Last Taken NIFEdipine XL [Procardia Xl] 60 mg PO QDAY 12/30/15 11/11/18 08/03/18 08:00 Cyanocobalamin (Vitamin B-12) 500 mcg PO DAILY 06/23/16 11/11/18 08/03/18 08:00 [Vitamin B12] Lisinopril [Zestril TAB] 10 mg PO QDAY 06/23/16 11/11/18 08/03/18 08:00 Cosopt Pf Eye Drops 1 drop OU BID 07/01/16 11/11/18 08/03/18 08:00 Protonix TAB 40 mg PO BID 07/20/16 11/11/18 08/03/18 08:00 B Complex 11/Folic/C/Biot/Zinc 1 each PO QDAY 09/15/16 11/11/18 08/03/18 08:00 [Dialyvite with Zinc Tablet] Insulin Lispro [Humalog 100 24 units SQ TIDAC 09/15/16 11/11/18 08/02/18 22:00 UNITS/ML Kwikpen] Adult Low Dose Aspirin EC 81 mg PO DAILY 08/03/18 11/11/18 08/03/18 08:00 Iron 325 mg PO DAILY 08/03/18 11/11/18 08/03/18 08:00 Restasis 0.05% 0.05 drops OU DAILY 08/03/18 11/11/18 08/03/18 08:00 Spironolactone 25 mg PO BID 08/03/18 11/10/18 08/03/18 08:00 AtorvaSTATin [Lipitor] 20 mg PO BID 11/10/18 11/10/18 Unknown Insulin Glargine,Hum.rec.anlog 3 units SUB-Q AC 11/10/18 11/10/18 Unknown [Dorota Samayoa] Pantoprazole [Protonix TAB] 40 mg PO QDAY 11/10/18 11/10/18 Unknown Previous Rx's Medication Instructions Recorded Last Taken Type Metoprolol [Lopressor TAB] 25 mg PO Q12HR #60 tablet 07/09/16 08/03/18 08:00 Rx Furosemide [Lasix] 20 mg PO QDAY #30 tablet 11/13/18 Unknown Rx Allergies Allergy/AdvReac Type Severity Reaction Status Date / Time No Known Allergies Allergy Verified 07/18/16 23:52 ED Review of Systems ROS: Stated complaint: MEDICAL CLEARANCE Other details as noted in HPI Constitutional: denies: chills, fever Eyes: denies: eye pain, eye discharge, vision change ENT: denies: ear pain, throat pain Respiratory: denies: cough, shortness of breath, wheezing Cardiovascular: denies: chest pain, palpitations Endocrine: no symptoms reported Gastrointestinal: denies: abdominal pain, nausea, diarrhea Genitourinary: other (urinating less per family). denies: urgency, dysuria, discharge Musculoskeletal: denies: back pain, joint swelling, arthralgia Skin: denies: rash, lesions Neurological: denies: headache, weakness, paresthesias Psychiatric: denies: anxiety, depression Hematological/Lymphatic: denies: easy bleeding, easy bruising ED Past Medical Hx - Past Medical History Previous Medical History?: Yes Hx Hypertension: Yes Hx Heart Attack/AMI: Yes Hx Congestive Heart Failure: Yes Hx Diabetes: Yes Hx GERD: Yes Hx Renal Disease: Yes Hx Arthritis: No Hx Seizures: No Hx Asthma: No Hx COPD: No Hx Tuberculosis: No Hx HIV: No Additional medical history: stents,pacemaker - Surgical History Past Surgical History?: Yes Hx Coronary Stent: Yes Hx Open Heart Surgery: Yes (Bypass 3 weeks ago) Hx Pacemaker: Yes Hx Internal Defibrillator: Yes Additional Surgical History: valve surgery, pacemaker - Social History Smoking Status: Current Every Day Smoker Substance Use Type: Alcohol, Prescribed - Medications Home Medications: Home Medications Medication Instructions Recorded Confirmed Last Taken Type NIFEdipine XL [Procardia Xl] 60 mg PO QDAY 12/30/15 11/11/18 08/03/18 08:00 History Cyanocobalamin (Vitamin B-12) 500 mcg PO DAILY 06/23/16 11/11/18 08/03/18 08:00 History [Vitamin B12] Lisinopril [Zestril TAB] 10 mg PO QDAY 06/23/16 11/11/18 08/03/18 08:00 History Cosopt Pf Eye Drops 1 drop OU BID 07/01/16 11/11/18 08/03/18 08:00 History Metoprolol [Lopressor TAB] 25 mg PO Q12HR #60 tablet 07/09/16 11/11/18 08/03/18 08:00 Rx Protonix TAB 40 mg PO BID 07/20/16 11/11/18 08/03/18 08:00 History B Complex 11/Folic/C/Biot/Zinc 1 each PO QDAY 09/15/16 11/11/18 08/03/18 08:00 History [Dialyvite with Zinc Tablet] Insulin Lispro [Humalog 100 24 units SQ TIDAC 09/15/16 11/11/18 08/02/18 22:00 History UNITS/ML Kwikpen] Adult Low Dose Aspirin EC 81 mg PO DAILY 08/03/18 11/11/18 08/03/18 08:00 Hist ory Iron 325 mg PO DAILY 08/03/18 11/11/18 08/03/18 08:00 History Restasis 0.05% 0.05 drops OU DAILY 08/03/18 11/11/18 08/03/18 08:00 History Spironolactone 25 mg PO BID 08/03/18 11/10/18 08/03/18 08:00 History AtorvaSTATin [Lipitor] 20 mg PO BID 11/10/18 11/10/18 Unknown History Insulin Glargine,Hum.rec.anlog 3 units SUB-Q AC 11/10/18 11/10/18 Unknown History [Toujeo Solostar] Pantoprazole [Protonix TAB] 40 mg PO QDAY 11/10/18 11/10/18 Unknown History Furosemide [Lasix] 20 mg PO QDAY #30 tablet 11/13/18 Unknown Rx ED Physical Exam - General Limitations: Physical Limitation General appearance: alert, in no apparent distress - Head Head exam: Present: atraumatic, normocephalic - Eye Eye exam: Present: normal appearance. Absent: scleral icterus - ENT ENT exam: Present: mucous membranes moist - Neck Neck exam: Present: normal inspection - Respiratory Respiratory exam: Present: normal lung sounds bilaterally. Absent: respiratory distress - Cardiovascular Cardiovascular Exam: Present: regular rate, normal rhythm. Absent: systolic murmur, diastolic murmur, rubs, gallop - GI/Abdominal GI/Abdominal exam: Present: soft, normal bowel sounds. Absent: distended, tenderness, guarding, rebound, rigid - Extremities Exam Extremities exam: Present: normal inspection. Absent: pedal edema, joint swelling, calf tenderness - Back Exam Back exam: Present: normal inspection - Neurological Exam Neurological exam: Present: alert, oriented X3, CN II-XII intact. Absent: motor sensory deficit - Psychiatric Psychiatric exam: Present: normal affect, normal mood - Skin Skin exam: Present: warm, dry, intact, normal color. Absent: rash ED Course Vital Signs 11/14/18 09:04 Temperature 98.3 F Pulse Rate 94 H Respiratory 17 Rate Blood Pressure 120/46 O2 Sat by Pulse 97 Oximetry - Reevaluation(s) Reevaluation #1: Discussed with Dr. Espino. He consult to Dr. Madrigal who recommended admission. He is admitting the patient now. 11/14/18 14:00 ED Medical Decision Making - Lab Data Result diagrams: 11/14/18 12:04 11/14/18 12:04 Laboratory Results - last 24 hr 11/14/18 11/14/18 11/14/18 12:04 12:04 12:04 WBC 8.5 RBC 3.30 L Hgb 8.5 L Hct 25.3 L MCV 77 L MCH 26 L MCHC 34 RDW 20.9 H Plt Count 294 Lymph % (Auto) 11.5 L [place] % (Auto) 11.1 H Eos % (Auto) 0.5 Baso % (Auto) 0.6 Lymph # 1.0 L [place] # 0.9 H Eos # 0.0 Baso # 0.0 Seg Neutrophils % 76.3 H Seg Neutrophils # 6.5 PT 16.4 H INR 1.36 H APTT 25.8 VBG pH Sodium Potassium Chloride Carbon Dioxide Anion Gap BUN Creatinine Estimated GFR BUN/Creatinine Ratio Glucose Lactic Acid 0.90 Calcium Phosphorus Total Bilirubin Direct Bilirubin Indirect Bilirubin AST ALT Alkaline Phosphatase Total Protein Albumin Albumin/Globulin Ratio 11/14/18 11/14/18 12:04 12:04 WBC RBC Hgb Hct MCV MCH MCHC RDW Plt Count Lymph % (Auto) [place] % (Auto) Eos % (Auto) Baso % (Auto) Lymph # [place] # Eos # Baso # Seg Neutrophils % Seg Neutrophils # PT INR APTT VBG pH 7.469 H Sodium 138 Potassium 4.2 Chloride 99.5 Carbon Dioxide 23 Anion Gap 20 BUN 51 H Creatinine 2.5 H Estimated GFR 23 BUN/Creatinine Ratio 20 Glucose 162 H Lactic Acid Calcium 9.3 Phosphorus 3.40 Total Bilirubin 0.50 Direct Bilirubin < 0.2 Indirect Bilirubin 0.3 AST 16 ALT 13 Alkaline Phosphatase 104 Total Protein 7.0 Albumin 3.3 L Albumin/Globulin Ratio 0.9 Critical care attestation.: If time is entered above; I have spent that time in minutes in the direct care of this critically ill patient, excluding procedure time. ED Disposition Clinical Impression: Positive blood culture Anemia Qualifiers: Anemia type: due to chronic kidney disease Chronic kidney disease stage: stage 3 (moderate) Qualified Code(s): N18.3 - Chronic kidney disease, stage 3 (moderate); D63.1 - Anemia in chronic kidney disease Cardiomyopathy Qualifiers: Cardiomyopathy type: unspecified Qualified Code(s): I42.9 - Cardiomyopathy, unspecified Disposition: DC-09 OP ADMIT IP TO THIS HOSP Is pt being admited?: Yes Does the pt Need Aspirin: No Condition: Stable Time of Disposition: 14:01
[2018-11-14 12:28] LABS: Basophils % (Auto) 0.6 % (0.0-1.8); Eosinophils % (Auto) 0.5 % (0.0-4.3); Hematocrit 25.3 % (30.3-42.9); Hemoglobin 8.5 gm/dl (10.1-14.3); Lymphocytes % (Auto) 11.5 % (13.4-35.0); Mean Corpuscular HGB Conc 34 % (30-34); Mean Corpuscular Volume 77 fl (79-97); Monocytes # (Auto) 0.9 K/mm3 (0.0-0.8); Monocytes % (Auto) 11.1 % (0.0-7.3); Platelet Count 294 K/mm3 (140-440)
[2018-11-14 12:38] LABS: INR 1.36 (0.87-1.13); Partial Thromboplastin Time 25.8 Sec. (24.2-36.6)
[2018-11-14 12:39] LABS: Red Cell Distribution Width 20.9 % (13.2-15.2)
[2018-11-14 12:44] LABS: Alanine Aminotransferase 13 units/L (7-56); Albumin 3.3 g/dL (3.9-5); BUN/Creatinine Ratio 20; Blood Urea Nitrogen 51 mg/dL (7-17); Calcium 9.3 mg/dL (8.4-10.2); Hemolysis Index 0
--- NOTE | 2018-11-14 12:46 | XRay Report ---
CHEST 1 VIEW 12:09 PM INDICATION / CLINICAL INFORMATION: Possible Sepsis. COMPARISON: 11/12/2018. FINDINGS: SUPPORT DEVICES: The position of the dual chamber left subclavian transvenous pacemaker has not amaro ed. HEART / MEDIASTINUM: Unchanged. LUNGS / PLEURA: Pulmonary vascular congestion and mild interstitial edema are unchanged to minimally increased. Bibasilar pleuroparenchymal opacity also appears slightly more prominent. No pneumothorax. ADDITIONAL FINDINGS: No significant additional findings. IMPRESSION: Bilateral pleuroparenchymal disease appears mildly increased. Signer Name: Baldomero Liu MD Signed: 11/14/2018 12:41 PM Workstation Name: [id number]
[2018-11-14 12:52] LABS: Bilirubin,Direct < 0.2 mg/dL (0-0.2)
--- NOTE | 2018-11-14 14:25 | History and Physical Report ---
History of Present Illness Date of examination: 11/14/18 Date of admission: 11/14/17 Chief complaint: Positive blood cultures History of present illness: Patient is 73 yo with CAD s/p CABG few weeks ago, CKD, mitral valve disease. She was admitted and just discharged home yesterday. Was called few hours later that blood culture positive, so patient called to come back to hospital. On previous admission, she had one fever episode of fever of 100.0, reason and had no more fever and negative blood cultures for 24 hrs but now Cultures growing Gram positive cocci in clusters 2 out of 4. She was seen and evaluated in Ed. she denies any new fever, no cough, no urinary symptoms. Will re-admit. Past History Past Medical History: CAD (s/p CABG), diabetes, heart failure (Chronic diastolic), renal failure (Chronic kidney disease) Past Surgical History: CABG (3-4 weeks ago), PTCA (coronary stents), Other (AICD) Social history: , lives with family, full code. denies: smoking, alcohol abuse Family history: other (Heart disease) Medications and Allergies Allergies Allergy/AdvReac Type Severity Reaction Status Date / Time No Known Allergies Allergy Verified 07/18/16 23:52 Home Medications Medication Instructions Recorded Confirmed Last Taken Type Metoprolol [Lopressor TAB] 25 mg PO Q12HR #60 tablet 07/09/16 11/14/18 11/14/18 Rx Insulin Lispro [Humalog 100 3 units SQ ACHS 09/15/16 11/14/18 11/14/18 History UNITS/ML Kwikpen] Adult Low Dose Aspirin EC 81 mg PO DAILY 08/03/18 11/14/18 11/14/18 History Restasis 0.05% 1 drops OU BID 08/03/18 11/14/18 08/03/18 08:00 History Spironolactone 25 mg PO DAILY 08/03/18 11/14/18 11/14/18 History AtorvaSTATin [Lipitor] 40 mg PO QHS 11/10/18 11/14/18 Unknown History Pantoprazole [Protonix TAB] 40 mg PO QDAY 11/10/18 11/14/18 Unknown History Furosemide [Lasix] 20 mg PO QDAY #30 tablet 11/13/18 11/14/18 Unknown Rx Acetaminophen [Arthritis Pain 650 mg PO Q6H PRN 11/14/18 11/14/18 Unknown History Relief] Bumetanide [Bumex 1 mg tab] 1 mg PO BID 11/14/18 11/14/18 Unknown History Clopidogrel [Plavix] 75 mg PO QDAY 11/14/18 11/14/18 Unknown History Dorzolamide HCl/Timolol Maleat 1 drop OP BID 11/14/18 11/14/18 Unknown History [Dorzolamide-Timolol Eye Drops] HYDROcodone/ACETAMINOPHEN 1 each PO Q6H PRN 11/14/18 11/14/18 Unknown History [Hydrocodone-Acetamin 5-300 mg] Insulin Glargine,Hum.rec.anlog 30 units SQ QHS 11/14/18 11/14/18 Unknown History [Toujeo Solostar] Insulin Glargine,Hum.rec.anlog 30 units SQ QHS 11/14/18 11/14/18 Unknown History [Toujeo Solostar] guaiFENesin ER [Mucinex ER] 600 mg PO DAILY 11/14/18 11/14/18 Unknown History traMADol [Ultram] 50 mg PO Q6HR PRN 11/14/18 11/14/18 Unknown History Review of Systems All systems: negative (No new fever, no more chest pain, no abd pain, pain both knees. All other systems reviewed and are negative) Exam - Physical Exam Narrative exam: Gen: Not in acute distress, lying in bed,obese HEENT: Normocephalic, atraumatic Neck: supple, no JVD Heart: S1 and S2 reg, no murmurs, rubs or gallop Lungs: Bilateral basal crackles, no wheeze Abd: soft, non tender, non distended, normal BS Ext: Swollen knees, no clubbing, no cyanosis, Neuro:awake,alert, Oriented X 3. No focal signs - Constitutional Vitals: Temp Pulse Resp BP Pulse Ox 98.3 F 94 H 17 120/46 97 11/14/18 09:04 11/14/18 09:04 11/14/18 09:04 11/14/18 09:04 11/14/18 09:04 Results - Labs CBC & Chem 7: 11/14/18 12:04 11/14/18 12:04 Labs: Abnormal lab results 11/14/18 11/14/18 11/14/18 Range/Units 12:04 12:04 12:04 RBC 3.30 L (3.65-5.03) M/mm3 Hgb 8.5 L (10.1-14.3) gm/dl Hct 25.3 L (30.3-42.9) % MCV 77 L (79-97) fl MCH 26 L (28-32) pg RDW 20.9 H (13.2-15.2) % Lymph % (Auto) 11.5 L (13.4-35.0) % [place] % (Auto) 11.1 H (0.0-7.3) % Lymph # 1.0 L (1.2-5.4) K/mm3 [place] # 0.9 H (0.0-0.8) K/mm3 Seg Neutrophils % 76.3 H (40.0-70.0) % PT 16.4 H (12.2-14.9) Sec. INR 1.36 H (0.87-1.13) VBG pH 7.469 H (7.320-7.420) BUN (7-17) mg/dL Creatinine (0.7-1.2) mg/dL Glucose (65-100) mg/dL Albumin (3.9-5) g/dL 11/14/18 Range/Units 12:04 RBC (3.65-5.03) M/mm3 Hgb (10.1-14.3) gm/dl Hct (30.3-42.9) % MCV (79-97) fl MCH (28-32) pg RDW (13.2-15.2) % Lymph % (Auto) (13.4-35.0) % [place] % (Auto) (0.0-7.3) % Lymph # (1.2-5.4) K/mm3 [place] # (0.0-0.8) K/mm3 Seg Neutrophils % (40.0-70.0) % PT (12.2-14.9) Sec. INR (0.87-1.13) VBG pH (7.320-7.420) BUN 51 H (7-17) mg/dL Creatinine 2.5 H (0.7-1.2) mg/dL Glucose 162 H (65-100) mg/dL Albumin 3.3 L (3.9-5) g/dL Assessment and Plan Bacteremia Positive blood cultures 2 out of 4 from blood cultures drawn 11/12/18 Admit to Tele Repeat blood cultures today 11/14/18 discussed with ID Physician start vancomycin Consult ID Physician Patient had a one time fever of 100.0 on 11/11/18, no more fever since then Acute on chronic diastolic CHF exacerbation Echo in july shows preserved EF 50-55% Continue Lasix at 20mg po daily. Dose was just decreased last admission few days ago, because of renal function Diabetes mellitus type 2 Sliding scale insulin, resume home insulins Acute on Chronic kidney disease Consult nephrology Was just discharged home yesterday 11/13 on lasix 20mg po daily Coronary artery disease s/p recent CABG 3-4 weeks ago Bilateral knee swelling with likely osteoarthritis Analgesics for pain Cannot give NSAID because of renal function Will cosult Ortho DVT prophylaxis with heparin full code status
[2018-11-14] MEDS ORDERED: ZOFRAN IV PRN (14:26)
[2018-11-14] MEDS ORDERED: SODIUM CHLORIDE FLUSH SYRINGE 10 ML IV PRN (14:26)
[2018-11-14] MEDS ORDERED: PERCOCET 5/325 PO PRN (14:26)
[2018-11-14] MEDS ORDERED: TYLENOL PO PRN (14:26)
[2018-11-14] MEDS ORDERED: VANCOMYCIN PHARMACY TO DOSE IV SCH (15:00)
[2018-11-14] MEDS ORDERED: VANCOMYCIN 1,750 MG in NACL 0.9% 500 ML 500 ML IV ONE (15:30)
[2018-11-14] MEDS ORDERED: ULTRAM PO PRN (16:15)
[2018-11-14] MEDS ORDERED: ACETAMINOPHEN 650 MG PO PRN (16:15)
[2018-11-14] MEDS ORDERED: NON-FORMULARY (Adult Low Dose Aspirin Ec 81 MG) PO SCH (16:30)
[2018-11-14] MEDS: HEPARIN SUB-Q SCH (21:40)
[2018-11-14] MEDS: PLAVIX PO SCH (21:41)
[2018-11-14] MEDS: LOPRESSOR PO SCH (21:41)
[2018-11-14] MEDS ORDERED: NON-FORMULARY (Insulin Glargine,Hum.Rec.Anlog [Toujeo Solostar] 30 UNITS) SQ SCH ×2 (22:00)
[2018-11-14] MEDS ORDERED: D50W (25GM) Syringe IV PRN (22:00)
[2018-11-14] MEDS ORDERED: NON-FORMULARY (Dorzolamide Hcl/Timolol Maleat [Dorzolamide-Timolol Eye Drops] 1 DROP) OP SCH (22:00)
[2018-11-14] MEDS ORDERED: RESTASIS 0.05% OU SCH (22:00)
[2018-11-14] MEDS: HumuLIN R SUB-Q SCH (22:55)
--- NOTE | 2018-11-15 08:50 | Progress Note ---
Assessment and Plan - Patient Problems (1) Acute kidney injury superimposed on chronic kidney disease Current Visit: No Status: Chronic Plan to address problem: Overall renal function is stable. Will continue to monitor. (2) Bacteremia Current Visit: Yes Status: Acute Plan to address problem: Patient started on IV vancomycin. Repeat Cultures drawn. Pending ID evaluation. (3) Acute pulmonary edema Current Visit: No Status: Acute Plan to address problem: Overall respiratory status has improved, and will maintain on lasix 20 mg daily. (4) Hypertensive chronic kidney disease with stage 1 through stage 4 chronic kidney disease, or unspecified chronic kidney disease Current Visit: No Status: Chronic Plan to address problem: Agree with holding ACEi at present time. Will continue to monitor on current regimen. (5) Type 2 diabetes mellitus with diabetic chronic kidney disease Current Visit: No Status: Chronic Qualifiers: Chronic kidney disease stage: stage 3 (moderate) Plan to address problem: DM management per primary team. Subjective Date of service: 11/15/18 Interval history: Patient was brought back to the ED secondary to 1/2 bottles growing gram (+) c occi in clusters. On vancomycin, pending ID evaluation. Renal function remains stable, Objective - Vital Signs Vital signs: Vital Signs - 12hr 11/14/18 11/15/18 11/15/18 23:08 01:00 03:21 Temperature 98.7 F 98.4 F Pulse Rate 92 H 91 H 95 H Respiratory 20 20 Rate Blood Pressure 137/53 129/62 O2 Sat by Pulse 100 98 Oximetry 11/15/18 08:08 Temperature Pulse Rate 91 H Respiratory 18 Rate Blood Pressure 124/44 O2 Sat by Pulse 98 Oximetry - General Appearance General appearance: well-developed, well-nourished, appears stated age EENT: ATNC, PERRL Neck: no JVD, no thyromegaly Respiratory: Present: Decreased Breath Sounds Cardiology: regular, S1S2 Gastrointestinal: normal, normoactive bowel sounds Integumentary: no rash, warm and dry Neurologic: no focal deficit, no asterixis, alert and oriented x3 Psychiatric: mood/affect appropriate, cooperative - Lab 11/14/18 12:04 11/14/18 12:04 Most recent lab results Calcium 9.3 mg/dL (8.4-10.2) 11/14/18 12:04 Phosphorus 3.40 mg/dL (2.5-4.5) 11/14/18 12:04 - Allied health notes Allied health notes reviewed: nursing Medications & Allergies - Medications Allergies/Adverse Reactions: Allergies No Known Allergies Allergy (Verified 07/18/16 23:52) Home Medications: Home Medications Medication Instructions Recorded Confirmed Last Taken Type Metoprolol [Lopressor TAB] 25 mg PO Q12HR #60 tablet 07/09/16 11/14/18 11/14/18 Rx Insulin Lispro [Humalog 100 3 units SQ ACHS 09/15/16 11/14/18 11/14/18 History UNITS/ML Kwikpen] Adult Low Dose Aspirin EC 81 mg PO DAILY 08/03/18 11/14/18 11/14/18 History Restasis 0.05% 1 drops OU BID 08/03/18 11/14/18 08/03/18 08:00 History Spironolactone 25 mg PO DAILY 08/03/18 11/14/18 11/14/18 History AtorvaSTATin [Lipitor] 40 mg PO QHS 11/10/18 11/14/18 Unknown History Pantoprazole [Protonix TAB] 40 mg PO QDAY 11/10/18 11/14/18 Unknown History Furosemide [Lasix] 20 mg PO QDAY #30 tablet 11/13/18 11/14/18 Unknown Rx Acetaminophen [Arthritis Pain 650 mg PO Q6H PRN 11/14/18 11/14/18 Unknown History Relief] Bumetanide [Bumex 1 mg tab] 1 mg PO BID 11/14/18 11/14/18 Unknown History Clopidogrel [Plavix] 75 mg PO QDAY 11/14/18 11/14/18 Unknown History Dorzolamide HCl/Timolol Maleat 1 drop OP BID 11/14/18 11/14/18 Unknown History [Dorzolamide-Timolol Eye Drops] HYDROcodone/ACETAMINOPHEN 1 each PO Q6H PRN 11/14/18 11/14/18 Unknown History [Hydrocodone-Acetamin 5-300 mg] Insulin Glargine,Hum.rec.anlog 30 units SQ QHS 11/14/18 11/14/18 Unknown History [Dorota Samayoa] Insulin Glargine,Hum.rec.anlog 30 units SQ QHS 11/14/18 11/14/18 Unknown History [Toupeña Maceostaida] guaiFENesin ER [Mucinex ER] 600 mg PO DAILY 11/14/18 11/14/18 Unknown History traMADol [Ultram] 50 mg PO Q6HR PRN 11/14/18 11/14/18 Unknown History Active Medications: Generic Name Dose Route Start Last Admin Trade Name Freq PRN Reason Stop Dose Admin Acetaminophen 650 mg 11/14/18 14:26 Tylenol PO Q4H PRN Pain MILD(1-3)/Fever >100.5/OCONNELL Aspirin 81 mg 11/15/18 10:00 Halfprin Ec PO QDAY MABEL Atorvastatin Calcium 40 mg 11/14/18 22:00 11/14/18 21:41 Lipitor PO 40 mg QHS MABEL Administration Clopidogrel Bisulfate 75 mg 11/14/18 17:00 11/14/18 21:41 Plavix PO 75 mg QDAY MABEL Administration Dextrose 50 ml 11/14/18 22:00 D50w (25gm) Syringe IV PRN PRN Hypoglycemia Furosemide 20 mg 11/15/18 10:00 Lasix PO QDAY MABEL Heparin Sodium (Porcine) 5,000 unit 11/14/18 22:00 11/14/18 21:40 Heparin SUB-Q 5,000 unit Q12H MABEL Administration Insulin Human Regular 0 units 11/14/18 22:00 11/14/18 22:55 Humulin R SUB-Q 3 units ACHS MABEL Administration Protocol Metoprolol Tartrate 25 mg 11/14/18 22:00 11/14/18 21:41 Lopressor PO 25 mg Q12HR MABEL Administration Miscellaneous Medication 1 drops 11/14/18 22:00 Restasis 0.05% OU BID MABEL Miscellaneous Medication 30 units 11/14/18 22:00 Insulin Glargine,Hum.Rec.Anlog [Dorota Samay[place]] SQ QHS MABLE Miscellaneous Medication 1 drop 11/14/18 22:00 Dorzolamide Hcl/Timolol Maleat [Dorzolamide-Timolol Eye Drops] OP BID MABEL Ondansetron HCl 4 mg 11/14/18 14:26 Zofran IV Q8H PRN Nausea And Vomiting Oxycodone/Acetaminophen 1 tab 11/14/18 14:26 Percocet 5/325 PO Q6H PRN Pain, Moderate (4-6) Pantoprazole Sodium 40 mg 11/14/18 17:00 Protonix PO QDAY MABEL Sodium Chloride 10 ml 11/14/18 22:00 Sodium Chloride Flush Syringe 10 Ml IV BID MABEL Sodium Chloride 10 ml 11/14/18 14:26 Sodium Chloride Flush Syringe 10 Ml IV PRN PRN LINE FLUSH Spironolactone 25 mg 11/15/18 10:00 Aldactone PO QDAY MABEL Tramadol HCl 50 mg 11/14/18 16:15 Ultram PO Q6HR PRN Pain
[2018-11-15] MEDS: ALDACTONE PO SCH (09:18)
[2018-11-15] MEDS: PLAVIX PO SCH (09:18)
[2018-11-15] MEDS: LASIX PO SCH (09:19)
[2018-11-15] MEDS: LOPRESSOR PO SCH ×2 (09:19→21:32)
[2018-11-15] MEDS: HumuLIN R SUB-Q SCH ×4 (09:20→21:31)
[2018-11-15] MEDS: HALFPRIN EC PO SCH (09:20)
[2018-11-15] MEDS: PROTONIX PO SCH ×2 (09:20→13:14)
[2018-11-15] MEDS: HEPARIN SUB-Q SCH ×2 (09:33→21:28)
--- NOTE | 2018-11-15 10:44 | Progress Note ---
Hospitalist Physical - Constitutional Vitals: Temp Pulse Resp BP Pulse Ox 98.4 F 92 H 18 124/44 98 11/15/18 03:21 11/15/18 09:19 11/15/18 08:08 11/15/18 08:08 11/15/18 08:08 Results - Labs CBC & Chem 7: 11/14/18 12:04 11/14/18 12:04 Labs: Laboratory Last Values WBC 8.5 K/mm3 (4.5-11.0) 11/14/18 12:04 RBC 3.30 M/mm3 (3.65-5.03) L 11/14/18 12:04 Hgb 8.5 gm/dl (10.1-14.3) L 11/14/18 12:04 Hct 25.3 % (30.3-42.9) L 11/14/18 12:04 MCV 77 fl (79-97) L 11/14/18 12:04 MCH 26 pg (28-32) L 11/14/18 12:04 MCHC 34 % (30-34) 11/14/18 12:04 RDW 20.9 % (13.2-15.2) H 11/14/18 12:04 Plt Count 294 K/mm3 (140-440) 11/14/18 12:04 Lymph % (Auto) 11.5 % (13.4-35.0) L 11/14/18 12:04 [place] % (Auto) 11.1 % (0.0-7.3) H 11/14/18 12:04 Eos % (Auto) 0.5 % (0.0-4.3) 11/14/18 12:04 Baso % (Auto) 0.6 % (0.0-1.8) 11/14/18 12:04 Lymph # 1.0 K/mm3 (1.2-5.4) L 11/14/18 12:04 [place] # 0.9 K/mm3 (0.0-0.8) H 11/14/18 12:04 Eos # 0.0 K/mm3 (0.0-0.4) 11/14/18 12:04 Baso # 0.0 K/mm3 (0.0-0.1) 11/14/18 12:04 Seg Neutrophils % 76.3 % (40.0-70.0) H 11/14/18 12:04 Seg Neutrophils # 6.5 K/mm3 (1.8-7.7) 11/14/18 12:04 PT 16.4 Sec. (12.2-14.9) H 11/14/18 12:04 INR 1.36 (0.87-1.13) H 11/14/18 12:04 APTT 25.8 Sec. (24.2-36.6) 11/14/18 12:04 VBG pH 7.469 (7.320-7.420) H 11/14/18 12:04 Sodium 138 mmol/L (137-145) 11/14/18 12:04 Potassium 4.2 mmol/L (3.6-5.0) 11/14/18 12:04 Chloride 99.5 mmol/L (98-107) 11/14/18 12:04 Carbon Dioxide 23 mmol/L (22-30) 11/14/18 12:04 20 mmol/L 11/14/18 12:04 BUN 51 mg/dL (7-17) H 11/14/18 12:04 2.5 mg/dL (0.7-1.2) H 11/14/18 12:04 Estimated GFR 23 ml/min 11/14/18 12:04 20 % 11/14/18 12:04 Glucose 162 mg/dL (65-100) H 11/14/18 12:04 POC Glucose 154 (70-105) H 11/15/18 07:43 Lactic Acid 0.90 mmol/L (0.7-2.0) 11/14/18 12:04 Calcium 9.3 mg/dL (8.4-10.2) 11/14/18 12:04 Phosphorus 3.40 mg/dL (2.5-4.5) 11/14/18 12:04 0.50 mg/dL (0.1-1.2) 11/14/18 12:04 < 0.2 mg/dL (0-0.2) 11/14/18 12:04 0.3 mg/dL 11/14/18 12:04 AST 16 units/L (5-40) 11/14/18 12:04 ALT 13 units/L (7-56) 11/14/18 12:04 104 units/L (35-129) 11/14/18 12:04 7.0 g/dL (6.3-8.2) 11/14/18 12:04 3.3 g/dL (3.9-5) L 11/14/18 12:04 0.9 % 11/14/18 12:04 Active Medications - Current Medications Current Medications: Generic Name Dose Route Start Last Admin Trade Name Freq PRN Reason Stop Dose Admin Acetaminophen 650 mg 11/14/18 14:26 Tylenol PO Q4H PRN Pain MILD(1-3)/Fever >100.5/OCONNELL Aspirin 81 mg 11/15/18 10:00 11/15/18 09:20 Halfprin Ec PO 81 mg QDAY MABEL Administration Atorvastatin Calcium 40 mg 11/14/18 22:00 11/14/18 21:41 Lipitor PO 40 mg QHS MBAEL Administration Clopidogrel Bisulfate 75 mg 11/14/18 17:00 11/15/18 09:18 Plavix PO 75 mg QDAY MABEL Administration Dextrose 50 ml 11/14/18 22:00 D50w (25gm) Syringe IV PRN PRN Hypoglycemia Furosemide 20 mg 11/15/18 10:00 11/15/18 09:19 Lasix PO 20 mg QDAY MABEL Administration Heparin Sodium (Porcine) 5,000 unit 11/14/18 22:00 11/15/18 09:33 Heparin SUB-Q 5,000 unit Q12H MABEL Administration Insulin Human Regular 0 units 11/14/18 22:00 11/15/18 09:20 Humulin R SUB-Q 1 units ACHS MABEL Administration Protocol Metoprolol Tartrate 25 mg 11/14/18 22:00 11/15/18 09:19 Lopressor PO 25 mg Q12HR MABEL Administration Miscellaneous Medication 1 drops 11/14/18 22:00 Restasis 0.05% OU BID MABEL Miscellaneous Medication 30 units 11/14/18 22:00 Insulin Glargine,Hum.Rec.Anlog [Todawson Solostaida] SQ QHS MABEL Miscellaneous Medication 1 drop 11/14/18 22:00 Dorzolamide Hcl/Timolol Maleat [Dorzolamide-Timolol Eye Drops] OP BID MABEL Ondansetron HCl 4 mg 11/14/18 14:26 Zofran IV Q8H PRN Nausea And Vomiting Oxycodone/Acetaminophen 1 tab 11/14/18 14:26 Percocet 5/325 PO Q6H PRN Pain, Moderate (4-6) Pantoprazole Sodium 40 mg 11/14/18 17:00 11/15/18 09:20 Protonix PO 40 mg QDAY MABEL Administration Sodium Chloride 10 ml 11/14/18 22:00 Sodium Chloride Flush Syringe 10 Ml IV BID MABEL Sodium Chloride 10 ml 11/14/18 14:26 Sodium Chloride Flush Syringe 10 Ml IV PRN PRN LINE FLUSH Spironolactone 25 mg 11/15/18 10:00 11/15/18 09:18 Aldactone PO 25 mg QDAY MABEL Administration Tramadol HCl 50 mg 11/14/18 16:15 Ultram PO Q6HR PRN Pain
--- NOTE | 2018-11-15 12:04 | Consultation ---
History of Present Illness Consult date: 11/15/18 Consult reason: known to you History of present illness: This is a 73-year old woman who was just discharged home 48 hours ago with atypical chest pain. Patient was called and asked to return to this hospital due to positive blood culture. On her previous admission, she noted a fever of 100.0. WBC of 11,400. Initial blood cultures was negative but now cultures growing Gram positive cocci in clusters 2 out of 4. Patient denies chest pain and shortness of breath. An EKG is AV paced rhythm. Past History Past Medical History: CAD (s/p CABG), diabetes, heart failure (Chronic diastolic), renal failure (Chronic kidney disease) Past Surgical History: CABG (3-4 weeks ago), PTCA (coronary stents), Other (AICD) Social history: , lives with family, full code. denies: smoking, alcohol abuse Family history: other (Heart disease) Medications and Allergies Allergies Allergy/AdvReac Type Severity Reaction Status Date / Time No Known Allergies Allergy Verified 07/18/16 23:52 Home Medications Medication Instructions Recorded Confirmed Last Taken Type Metoprolol [Lopressor TAB] 25 mg PO Q12HR #60 tablet 07/09/16 11/14/18 11/14/18 Rx Insulin Lispro [Humalog 100 3 units SQ ACHS 09/15/16 11/14/18 11/14/18 History UNITS/ML Kwikpen] Adult Low Dose Aspirin EC 81 mg PO DAILY 08/03/18 11/14/18 11/14/18 History Restasis 0.05% 1 drops OU BID 08/03/18 11/14/18 08/03/18 08:00 History Spironolactone 25 mg PO DAILY 08/03/18 11/14/18 11/14/18 History AtorvaSTATin [Lipitor] 40 mg PO QHS 11/10/18 11/14/18 Unknown History Pantoprazole [Protonix TAB] 40 mg PO QDAY 11/10/18 11/14/18 Unknown History Furosemide [Lasix] 20 mg PO QDAY #30 tablet 11/13/18 11/14/18 Unknown Rx Acetaminophen [Arthritis Pain 650 mg PO Q6H PRN 11/14/18 11/14/18 Unknown History Relief] Bumetanide [Bumex 1 mg tab] 1 mg PO BID 11/14/18 11/14/18 Unknown History Clopidogrel [Plavix] 75 mg PO QDAY 11/14/18 11/14/18 Unknown History Dorzolamide HCl/Timolol Maleat 1 drop OP BID 11/14/18 11/14/18 Unknown History [Dorzolamide-Timolol Eye Drops] HYDROcodone/ACETAMINOPHEN 1 each PO Q6H PRN 11/14/18 11/14/18 Unknown History [Hydrocodone-Acetamin 5-300 mg] Insulin Glargine,Hum.rec.anlog 30 units SQ QHS 11/14/18 11/14/18 Unknown History [Toujeo Solostar] Insulin Glargine,Hum.rec.anlog 30 units SQ QHS 11/14/18 11/14/18 Unknown History [Toujeo Solostar] guaiFENesin ER [Mucinex ER] 600 mg PO DAILY 11/14/18 11/14/18 Unknown History traMADol [Ultram] 50 mg PO Q6HR PRN 11/14/18 11/14/18 Unknown History Active Meds: Active Medications Acetaminophen (Tylenol) 650 mg PO Q4H PRN PRN Reason: Pain MILD(1-3)/Fever >100.5/OCONNELL Aspirin (Halfprin Ec) 81 mg PO QDAY [facility] Last Admin: 11/15/18 09:20 Dose: 81 mg Documented by: Atorvastatin Calcium (Lipitor) 40 mg PO QHS [facility] Last Admin: 11/14/18 21:41 Dose: 40 mg Documented by: Clopidogrel Bisulfate (Plavix) 75 mg PO QDAY [facility] Last Admin: 11/15/18 09:18 Dose: 75 mg Documented by: Dextrose (D50w (25gm) Syringe) 50 ml IV PRN PRN PRN Reason: Hypoglycemia Furosemide (Lasix) 20 mg PO QDAY [facility] Last Admin: 11/15/18 09:19 Dose: 20 mg Documented by: Heparin Sodium (Porcine) (Heparin) 5,000 unit SUB-Q Q12H [facility] Last Admin: 11/15/18 09:33 Dose: 5,000 unit Documented by: Insulin Human Regular (Humulin R) 0 units SUB-Q [facility]; Protocol Last Admin: 11/15/18 09:20 Dose: 1 units Documented by: Metoprolol Tartrate (Lopressor) 25 mg PO Q12HR [facility] Last Admin: 11/15/18 09:19 Dose: 25 mg Documented by: Miscellaneous Medication (Restasis 0.05%) 1 drops OU BID [facility] Miscellaneous Medication (Insulin Glargine,Hum.Rec.Anlog [Dorota Samayoa]) 30 units SQ QHS [facility] Miscellaneous Medication (Dorzolamide Hcl/Timolol Maleat [Dorzolamide-Timolol Eye Drops]) 1 drop OP BID [facility] Ondansetron HCl (Zofran) 4 mg IV Q8H PRN PRN Reason: Nausea And Vomiting Oxycodone/Acetaminophen (Percocet 5/325) 1 tab PO Q6H PRN PRN Reason: Pain, Moderate (4-6) Pantoprazole Sodium (Protonix) 40 mg PO QDAY [facility] Last Admin: 11/15/18 09:20 Dose: 40 mg Documented by: Sodium Chloride (Sodium Chloride Flush Syringe 10 Ml) 10 ml IV BID MABEL Sodium Chloride (Sodium Chloride Flush Syringe 10 Ml) 10 ml IV PRN PRN PRN Reason: LINE FLUSH Spironolactone (Aldactone) 25 mg PO QDAY [facility] Last Admin: 11/15/18 09:18 Dose: 25 mg Documented by: Tramadol HCl (Ultram) 50 mg PO Q6HR PRN PRN Reason: Pain Physical Examination Vital Signs Temp Pulse Resp BP Pulse Ox 98.3 F 94 H 17 120/46 97 11/14/18 09:04 11/14/18 09:04 11/14/18 09:04 11/14/18 09:04 11/14/18 09:04 General appearance: no acute distress HEENT: Positive: PERRL Neck: Positive: trachea midline Cardiac: Positive: Other (AV paced) Lungs: Positive: Decreased Breath Sounds Neuro: Positive: Grossly Intact Extremities: Absent: edema Results 11/14/18 12:04 11/14/18 12:04 Cardiac Enzymes 11/14/18 Range/Units 12:04 AST 16 (5-40) units/L Coagulation 11/14/18 Range/Units 12:04 PT 16.4 H (12.2-14.9) Sec. INR 1.36 H (0.87-1.13) APTT 25.8 (24.2-36.6) Sec. CBC 11/14/18 Range/Units 12:04 WBC 8.5 (4.5-11.0) K/mm3 RBC 3.30 L (3.65-5.03) M/mm3 Hgb 8.5 L (10.1-14.3) gm/dl Hct 25.3 L (30.3-42.9) % Plt Count 294 (140-440) K/mm3 Lymph # 1.0 L (1.2-5.4) K/mm3 [place] # 0.9 H (0.0-0.8) K/mm3 Eos # 0.0 (0.0-0.4) K/mm3 Baso # 0.0 (0.0-0.1) K/mm3 Comprehensive Metabolic Panel 11/14/18 Range/Units 12:04 Sodium 138 (137-145) mmol/L Potassium 4.2 (3.6-5.0) mmol/L Chloride 99.5 (98-107) mmol/L Carbon Dioxide 23 (22-30) mmol/L BUN 51 H (7-17) mg/dL Creatinine 2.5 H (0.7-1.2) mg/dL Glucose 162 H (65-100) mg/dL Calcium 9.3 (8.4-10.2) mg/dL Direct Bilirubin < 0.2 (0-0.2) mg/dL Indirect Bilirubin 0.3 mg/dL AST 16 (5-40) units/L ALT 13 (7-56) units/L Alkaline Phosphatase 104 (35-129) units/L Total Protein 7.0 (6.3-8.2) g/dL Albumin 3.3 L (3.9-5) g/dL Assessment and Plan Bacteremia -reason for admission Chronic Kidney Disease Required transient HD in the past Atrioventricular Block, Second Degree s/p PPM Essential Hypertension Type 2 Diabetes Mellitus Nonrheumatic Mitral (valve) Stenosis s/p MV replacement (tissue valve) and TV repair (ring) October 12, 2018 Echo 11/09/2018: LVEF 31%, moderate RVE, sevee LAE, MY mean gradient 6.6 mm Hg, mild to moderate TR, moderately elevated RVSP Hx of CAD s/p CABG x 2 October 12, 2018 Carotid artery stenosis 50-60% right and left ICA 08/2018 Recommend: Medical therapy for coronary artery disease.
[2018-11-15 12:09] LABS: Basophils % (Auto) 0.5 % (0.0-1.8); Eosinophils # (Auto) 0.1 K/mm3 (0.0-0.4); Eosinophils % (Auto) 1.2 % (0.0-4.3); Hematocrit 25.9 % (30.3-42.9); Hemoglobin 8.5 gm/dl (10.1-14.3); Mean Corpuscular HGB Conc 33 % (30-34); Mean Corpuscular Volume 78 fl (79-97); Monocytes # (Auto) 0.9 K/mm3 (0.0-0.8); Monocytes % (Auto) 10.8 % (0.0-7.3); Platelet Count 297 K/mm3 (140-440); Red Blood Count 3.32 M/mm3 (3.65-5.03)
[2018-11-15 12:10] LABS: Calcium 9.2 mg/dL (8.4-10.2)
[2018-11-15 12:27] LABS: Red Cell Distribution Width 20.9 % (13.2-15.2)
[2018-11-15] MEDS: SODIUM CHLORIDE FLUSH SYRINGE 10 ML IV SCH ×2 (13:16→21:28)
--- NOTE | 2018-11-15 13:46 | Consultation ---
History of Present Illness - Reason for Consult Consult date: 11/15/18 GPC bacteremia Requesting physician: EMMIE CHAPMAN - History of Present Illness The patient is a 73-year-old female with recent CABG for coronary artery disease was admitted to the hospital from 11/10/2018 to 11/13/2018 with chest pain. She has a history of AV block status post permanent pacemaker. She also is status post mitral valve replacement and tricuspid valve repair with ring in October 2018. She was evaluated by cardiology, had meds optimized and was discharged home. She had a fever of 100.0F on 11/12/2018 and had blood cultures done. She was discharged home but then recalled back to the hospital due to positive blood cultures. ID was consulted for the same. She otherwise denies any symptoms. Denies nausea, vomiting. Denies any more chest pain. Review of Systems: General: no fevers,chills or rigors HEENT: no new visual disturbance Respiratory: No cough, sputum, hemoptysis or shortness of breath Cardiovascular: No chest pain, syncope Gastrointestinal: No nausea, vomiting or diarrhea Genitourinary: No dysuria or hematuria Musculoskeletal: No new or worsening neck pain or back pain Neurologic: No headaches, seizures Hematologic: No easy bruising or bleeding Endocrine: No night sweats or acute weight loss Skin: negative for rash, jaundice Psychiatric: No suicidal or homicidal ideation Past History Past Medical History: CAD (s/p CABG), diabetes, heart failure (Chronic diastolic), renal failure (Chronic kidney disease) Past Surgical History: CABG (3-4 weeks ago), PTCA (coronary stents), Other (AICD) Social history: , lives with family, full code. denies: smoking, alcohol abuse Family history: other (Heart disease) Medications and Allergies Allergies Allergy/AdvReac Type Severity Reaction Status Date / Time No Known Allergies Allergy Verified 07/18/16 23:52 Home Medications Medication Instructions Recorded Confirmed Last Taken Type Metoprolol [Lopressor TAB] 25 mg PO Q12HR #60 tablet 07/09/16 11/14/18 11/14/18 Rx Insulin Lispro [Humalog 100 3 units SQ ACHS 09/15/16 11/14/18 11/14/18 History UNITS/ML Kwikpen] Adult Low Dose Aspirin EC 81 mg PO DAILY 08/03/18 11/14/18 11/14/18 History Restasis 0.05% 1 drops OU BID 08/03/18 11/14/18 08/03/18 08:00 History Spironolactone 25 mg PO DAILY 08/03/18 11/14/18 11/14/18 History AtorvaSTATin [Lipitor] 40 mg PO QHS 11/10/18 11/14/18 Unknown History Pantoprazole [Protonix TAB] 40 mg PO QDAY 11/10/18 11/14/18 Unknown History Furosemide [Lasix] 20 mg PO QDAY #30 tablet 11/13/18 11/14/18 Unknown Rx Acetaminophen [Arthritis Pain 650 mg PO Q6H PRN 11/14/18 11/14/18 Unknown History Relief] Bumetanide [Bumex 1 mg tab] 1 mg PO BID 11/14/18 11/14/18 Unknown History Clopidogrel [Plavix] 75 mg PO QDAY 11/14/18 11/14/18 Unknown History Dorzolamide HCl/Timolol Maleat 1 drop OP BID 11/14/18 11/14/18 Unknown History [Dorzolamide-Timolol Eye Drops] HYDROcodone/ACETAMINOPHEN 1 each PO Q6H PRN 11/14/18 11/14/18 Unknown History [Hydrocodone-Acetamin 5-300 mg] Insulin Glargine,Hum.rec.anlog 30 units SQ QHS 11/14/18 11/14/18 Unknown History [Toujeo Solostar] Insulin Glargine,Hum.rec.anlog 30 units SQ QHS 11/14/18 11/14/18 Unknown History [Toujeo Solostar] guaiFENesin ER [Mucinex ER] 600 mg PO DAILY 11/14/18 11/14/18 Unknown History traMADol [Ultram] 50 mg PO Q6HR PRN 11/14/18 11/14/18 Unknown History Active Meds: Active Medications Acetaminophen (Tylenol) 650 mg PO Q4H PRN PRN Reason: Pain MILD(1-3)/Fever >100.5/OCONNELL Aspirin (Halfprin Ec) 81 mg PO QDAY [facility] Last Admin: 11/15/18 09:20 Dose: 81 mg Documented by: Atorvastatin Calcium (Lipitor) 40 mg PO QHS [facility] Last Admin: 11/14/18 21:41 Dose: 40 mg Documented by: Clopidogrel Bisulfate (Plavix) 75 mg PO QDAY [facility] Last Admin: 11/15/18 09:18 Dose: 75 mg Documented by: Dextrose (D50w (25gm) Syringe) 50 ml IV PRN PRN PRN Reason: Hypoglycemia Furosemide (Lasix) 20 mg PO QDAY [facility] Last Admin: 11/15/18 09:19 Dose: 20 mg Documented by: Heparin Sodium (Porcine) (Heparin) 5,000 unit SUB-Q Q12H [facility] Last Admin: 11/15/18 09:33 Dose: 5,000 unit Documented by: Insulin Human Regular (Humulin R) 0 units SUB-Q ACHS [facility]; Protocol Last Admin: 11/15/18 13:13 Dose: 1 units Documented by: Metoprolol Tartrate (Lopressor) 25 mg PO Q12HR [facility] Last Admin: 11/15/18 09:19 Dose: 25 mg Documented by: Miscellaneous Medication (Restasis 0.05%) 1 drops OU BID [facility] Miscellaneous Medication (Insulin Glargine,Hum.Rec.Anlog [Dorota Samayoa]) 30 units SQ QHS [facility] Miscellaneous Medication (Dorzolamide Hcl/Timolol Maleat [Dorzolamide-Timolol Eye Drops]) 1 drop OP BID [facility] Ondansetron HCl (Zofran) 4 mg IV Q8H PRN PRN Reason: Nausea And Vomiting Oxycodone/Acetaminophen (Percocet 5/325) 1 tab PO Q6H PRN PRN Reason: Pain, Moderate (4-6) Pantoprazole Sodium (Protonix) 40 mg PO QDAY [facility] Last Admin: 11/15/18 13:14 Dose: 40 mg Documented by: Sodium Chloride (Sodium Chloride Flush Syringe 10 Ml) 10 ml IV BID [facility] Last Admin: 11/15/18 13:16 Dose: 10 ml Documented by: Sodium Chloride (Sodium Chloride Flush Syringe 10 Ml) 10 ml IV PRN PRN PRN Reason: LINE FLUSH Last Admin: 11/15/18 13:15 Dose: 10 ml Documented by: Spironolactone (Aldactone) 25 mg PO QDAY [facility] Last Admin: 11/15/18 09:18 Dose: 25 mg Documented by: Tramadol HCl (Ultram) 50 mg PO Q6HR PRN PRN Reason: Pain Physical Examination - Physical Exam Narrative exam: Physical Exam: Constitutional: Alert, cooperative. No acute distress Head, Ears, Nose: Normocephalic, atraumatic. External ears, nose normal Eyes: Conjunctivae/corneas clear. No icterus. No ptosis. Neck: Supple, no meningeal signs Cardiovascular: S1, S2 normal. Sternal incision appears to be healing well. No pacemaker site tenderness. Respiratory: Good air entry, clear to auscultation bilaterally GI: Soft, non-tender; bowel sounds normal. No peritoneal signs Musculoskeletal: No pedal edema, no cyanosis. Skin: No rash or abscess Hem/Lymphatic: No palpable cervical or supraclavicular nodes. No lymphangitis Psych: Mood ok. Affect normal Neurological: Awake, alert, oriented. No gross abnormality - Constitutional Vitals: Vital Signs Temp Pulse Resp BP Pulse Ox 98.7 F 93 H 18 137/61 100 11/15/18 11:28 11/15/18 11:28 11/15/18 11:28 11/15/18 11:28 11/15/18 11:28 Temperature -Last 24 Hours Temperature 98.7 F Temperature 98.4 F Temperature 98.7 F Temperature 99.1 F Temperature 98.8 F Results - Labs CBC & Chem 7: 11/15/18 11:23 11/15/18 11:23 Labs: Abnormal lab results 11/15/18 11/15/18 11/15/18 Range/Units 07:43 11:23 11:23 RBC 3.32 L (3.65-5.03) M/mm3 Hgb 8.5 L (10.1-14.3) gm/dl Hct 25.9 L (30.3-42.9) % MCV 78 L (79-97) fl MCH 26 L (28-32) pg RDW 20.9 H (13.2-15.2) % Lymph % (Auto) 12.0 L (13.4-35.0) % [place] % (Auto) 10.8 H (0.0-7.3) % Lymph # 1.0 L (1.2-5.4) K/mm3 [place] # 0.9 H (0.0-0.8) K/mm3 Seg Neutrophils % 75.5 H (40.0-70.0) % BUN 44 H (7-17) mg/dL Creatinine 1.9 H (0.7-1.2) mg/dL Glucose 185 H (65-100) mg/dL POC Glucose 154 H (70-105) 11/15/18 Range/Units 11:33 RBC (3.65-5.03) M/mm3 Hgb (10.1-14.3) gm/dl Hct (30.3-42.9) % MCV (79-97) fl MCH (28-32) pg RDW (13.2-15.2) % Lymph % (Auto) (13.4-35.0) % [place] % (Auto) (0.0-7.3) % Lymph # (1.2-5.4) K/mm3 [place] # (0.0-0.8) K/mm3 Seg Neutrophils % (40.0-70.0) % BUN (7-17) mg/dL Creatinine (0.7-1.2) mg/dL Glucose (65-100) mg/dL POC Glucose 214 H (70-105) - Imaging and Cardiology Chest x-ray: report reviewed, image reviewed (Chest x-ray shows pulmonary vascular congestion and mild interstitial edema) Assessment and Plan Cultures: 11/12/2018 blood culture: 1 of 2 bottles from both sets positive for gram- positive cocci. Culture growing Coag-negative staph 11/14/2018 blood culture: No growth in 24 hours A/P: 73-year-old female with recent CABG for coronary artery disease was admitted to the hospital from 11/10/2018 to 11/13/2018 with chest pain. She has a history of AV block status post permanent pacemaker. She also is status post mitral valve replacement and tricuspid valve repair with ring in October 2018. Now with: 1) GPC Bacteremia: 1 of 2 bottles from both sets positive for gram-positive cocci. Culture growing Coag-negative staph. Asymptomatic. Per cardiology note: Echo 11/09/2018: LVEF 31%, moderate RVE, severe LAE, MV mean gradient 6.6 mm Hg, mild to moderate TR, moderately elevated RVSP. Contamination possible but given indwelling PPM, also the fact that she is s/p mitral valve replacement and tricuspid valve repair with ring, will need a LINETTE to rule out endocarditis. Continue IV Vancomycin for now, target trough 10-15 mcg/ml. 2) Acute on chronic CHF 3) Acute on chronic kidney disease: renally dose abx and monitor creatinine. Recs: needs LINETTE Continue IV Vancomycin for now, target trough 10-15 mcg/ml f/u blood cultures d/w Dr. Srinivas Epps MD, FACP [facility] ([facility]) C: [phone] O: [phone] F: [phone]
--- NOTE | 2018-11-15 14:25 | Progress Note ---
Assessment and Plan Assessment and plan: Bacteremia Positive blood cultures 2 out of 4 from blood cultures drawn 11/12/18 Admitted to Tele Repeated blood cultures 11/14/18 discussed with ID Physician start vancomycin Consult ID Physician Patient had a one time fever of 100.0 on 11/11/18, no more fever since then Acute on chronic diastolic CHF exacerbation Echo in july shows preserved EF 50-55% Continue Lasix at 20mg po daily. Dose was just decreased last admission few days ago, because of renal function Diabetes mellitus type 2 Sliding scale insulin, resume home insulins Acute on Chronic kidney disease Consult nephrology Was just discharged home yesterday 11/13 on lasix 20mg po daily Nonrheumatic Mitral (valve) Stenosis s/p MV replacement (tissue valve) and TV repair (ring) October 12, 2018. Coronary Artery Disease, History of stent stenosis of CX s/p CABGx 2 October 12, 2018 Carotid artery stenosis 50-60% right and left ICA 08/2018 History of av block s/p PPM Bilateral knee swelling with likely osteoarthritis Analgesics for pain Cannot give NSAID because of renal function Will cosult Ortho DVT prophylaxis with heparin full code status Discussed with Dr. Epps, he recommends LINETTE because of pacemaker, valve surgery. History Interval history: No more fever No chest pain No shortness of breath Asked to come n for re-admission because positive blood cultures Hospitalist Physical - Physical exam Narrative exam: Gen: Not in acute distress, lying in bed,obese HEENT: Normocephalic, atraumatic Neck: supple, no JVD Heart: S1 and S2 reg, no murmurs, rubs or gallop Lungs: Bilateral basal crackles, no wheeze Abd: soft, non tender, non distended, normal BS Ext: Swollen knees, no clubbing, no cyanosis, Neuro:awake,alert, Oriented X 3. No focal signs - Constitutional Vitals: Temp Pulse Resp BP Pulse Ox 98.7 F 93 H 18 137/61 100 11/15/18 11:28 11/15/18 11:28 11/15/18 11:28 11/15/18 11:28 11/15/18 11:28 General appearance: Present: no acute distress Results - Labs CBC & Chem 7: 11/15/18 11:23 11/15/18 11:23 Labs: Laboratory Last Values WBC 8.1 K/mm3 (4.5-11.0) 11/15/18 11:23 RBC 3.32 M/mm3 (3.65-5.03) L 11/15/18 11:23 Hgb 8.5 gm/dl (10.1-14.3) L 11/15/18 11:23 Hct 25.9 % (30.3-42.9) L 11/15/18 11:23 MCV 78 fl (79-97) L 11/15/18 11:23 MCH 26 pg (28-32) L 11/15/18 11:23 MCHC 33 % (30-34) 11/15/18 11:23 RDW 20.9 % (13.2-15.2) H 11/15/18 11:23 Plt Count 297 K/mm3 (140-440) 11/15/18 11:23 Lymph % (Auto) 12.0 % (13.4-35.0) L 11/15/18 11:23 [place] % (Auto) 10.8 % (0.0-7.3) H 11/15/18 11:23 Eos % (Auto) 1.2 % (0.0-4.3) 11/15/18 11:23 Baso % (Auto) 0.5 % (0.0-1.8) 11/15/18 11:23 Lymph # 1.0 K/mm3 (1.2-5.4) L 11/15/18 11:23 [place] # 0.9 K/mm3 (0.0-0.8) H 11/15/18 11:23 Eos # 0.1 K/mm3 (0.0-0.4) 11/15/18 11:23 Baso # 0.0 K/mm3 (0.0-0.1) 11/15/18 11:23 Seg Neutrophils % 75.5 % (40.0-70.0) H 11/15/18 11:23 Seg Neutrophils # 6.1 K/mm3 (1.8-7.7) 11/15/18 11:23 PT 16.4 Sec. (12.2-14.9) H 11/14/18 12:04 INR 1.36 (0.87-1.13) H 11/14/18 12:04 APTT 25.8 Sec. (24.2-36.6) 11/14/18 12:04 VBG pH 7.469 (7.320-7.420) H 11/14/18 12:04 Sodium 141 mmol/L (137-145) 11/15/18 11:23 Potassium 4.2 mmol/L (3.6-5.0) 11/15/18 11:23 Chloride 102.9 mmol/L (98-107) 11/15/18 11:23 Carbon Dioxide 23 mmol/L (22-30) 11/15/18 11:23 19 mmol/L 11/15/18 11:23 BUN 44 mg/dL (7-17) H 11/15/18 11:23 1.9 mg/dL (0.7-1.2) H 11/15/18 11:23 Estimated GFR 31 ml/min 11/15/18 11:23 23 % 11/15/18 11:23 Glucose 185 mg/dL (65-100) H 11/15/18 11:23 POC Glucose 214 (70-105) H 11/15/18 11:33 Lactic Acid 0.90 mmol/L (0.7-2.0) 11/14/18 12:04 Calcium 9.2 mg/dL (8.4-10.2) 11/15/18 11:23 Phosphorus 3.40 mg/dL (2.5-4.5) 11/14/18 12:04 0.50 mg/dL (0.1-1.2) 11/14/18 12:04 < 0.2 mg/dL (0-0.2) 11/14/18 12:04 0.3 mg/dL 11/14/18 12:04 AST 16 units/L (5-40) 11/14/18 12:04 ALT 13 units/L (7-56) 11/14/18 12:04 104 units/L (35-129) 11/14/18 12:04 7.0 g/dL (6.3-8.2) 11/14/18 12:04 3.3 g/dL (3.9-5) L 11/14/18 12:04 0.9 % 11/14/18 12:04 Active Medications - Current Medications Current Medications: Generic Name Dose Route Start Last Admin Trade Name Freq PRN Reason Stop Dose Admin Acetaminophen 650 mg 11/14/18 14:26 Tylenol PO Q4H PRN Pain MILD(1-3)/Fever >100.5/OCONNELL Aspirin 81 mg 11/15/18 10:00 11/15/18 09:20 Halfprin Ec PO 81 mg QDAY MABEL Administration Atorvastatin Calcium 40 mg 11/14/18 22:00 11/14/18 21:41 Lipitor PO 40 mg QHS MABEL Administration Clopidogrel Bisulfate 75 mg 11/14/18 17:00 11/15/18 09:18 Plavix PO 75 mg QDAY MABEL Administration Dextrose 50 ml 11/14/18 22:00 D50w (25gm) Syringe IV PRN PRN Hypoglycemia Furosemide 20 mg 11/15/18 10:00 11/15/18 09:19 Lasix PO 20 mg QDAY MABEL Administration Heparin Sodium (Porcine) 5,000 unit 11/14/18 22:00 11/15/18 09:33 Heparin SUB-Q 5,000 unit Q12H MABEL Administration Insulin Human Regular 0 units 11/14/18 22:00 11/15/18 13:13 Humulin R SUB-Q 1 units ACHS MABEL Administration Protocol Metoprolol Tartrate 25 mg 11/14/18 22:00 11/15/18 09:19 Lopressor PO 25 mg Q12HR MABEL Administration Miscellaneous Medication 1 drops 11/14/18 22:00 Restasis 0.05% OU BID [facility] Miscellaneous Medication 30 units 11/14/18 22:00 Insulin Glargine,Hum.Rec.Anlog [Todawson Samayoa] SQ QHS [facility] Miscellaneous Medication 1 drop 11/14/18 22:00 Dorzolamide Hcl/Timolol Maleat [Dorzolamide-Timolol Eye Drops] OP BID MABEL Ondansetron HCl 4 mg 11/14/18 14:26 Zofran IV Q8H PRN Nausea And Vomiting Oxycodone/Acetaminophen 1 tab 11/14/18 14:26 Percocet 5/325 PO Q6H PRN Pain, Moderate (4-6) Pantoprazole Sodium 40 mg 11/14/18 17:00 11/15/18 13:14 Protonix PO 40 mg QDAY MABEL Administration Sodium Chloride 10 ml 11/14/18 22:00 11/15/18 13:16 Sodium Chloride Flush Syringe 10 Ml IV 10 ml BID MABEL Administration Sodium Chloride 10 ml 11/14/18 14:26 11/15/18 13:15 Sodium Chloride Flush Syringe 10 Ml IV 10 ml PRN PRN Administration LINE FLUSH Spironolactone 25 mg 11/15/18 10:00 11/15/18 09:18 Aldactone PO 25 mg QDAY MABEL Administration Tramadol HCl 50 mg 11/14/18 16:15 Ultram PO Q6HR PRN Pain
[2018-11-15] MEDS ORDERED: LANTUS SUB-Q SCH (22:00)
[2018-11-15 23:46] LABS: Bacteria,Urine 1+ /HPF (Negative); Bilirubin,Urine NEG (Negative); Blood,Urine NEG (Negative); Color,Urine Yellow (Yellow); Protein,Urine <15 mg/dL mg/dL (Negative); RBC,Urine < 1.0 /HPF (0.0-6.0); Urobilinogen,Urine < 2.0 mg/dL (<2.0)
[2018-11-16] MEDS: HumuLIN R SUB-Q SCH ×4 (07:30→21:59)
--- NOTE | 2018-11-16 08:26 | Progress Note ---
Assessment and Plan - Patient Problems (1) Acute kidney injury superimposed on chronic kidney disease Current Visit: No Status: Chronic Plan to address problem: Overall renal function is stable. Will continue to monitor. (2) Bacteremia Current Visit: Yes Status: Acute Plan to address problem: Patient started on IV vancomycin. Repeat Cultures drawn. One out of 2 bottles have been growing coagulase negative staph. Infectious disease evaluation noted. Plan for transesophageal echocardiogram for further evaluation. (3) Acute pulmonary edema Current Visit: No Status: Acute Plan to address problem: Overall respiratory status has improved, and will maintain on lasix 20 mg daily. (4) Hypertensive chronic kidney disease with stage 1 through stage 4 chronic kidney disease, or unspecified chronic kidney disease Current Visit: No Status: Chronic Plan to address problem: Agree with holding ACEi at present time. Will continue to monitor on current regimen. (5) Type 2 diabetes mellitus with diabetic chronic kidney disease Current Visit: No Status: Chronic Qualifiers: Chronic kidney disease stage: stage 3 (moderate) Plan to address problem: DM management per primary team. Subjective Date of service: 11/16/18 Interval history: No acute issues overnight. Patient's blood culture has been growing coagulase- negative staph. Infectious disease note. Plan for transesophageal echocardiogram to rule out endocarditis in this patient with a history of permanent pacemaker as well as mitral valve repair. From a nephrology standpoint her renal function overall is stable. She remains on Lasix 20 mg daily. Objective - Vital Signs Vital signs: Vital Signs - 12hr 11/15/18 11/15/18 11/16/18 23:18 23:37 03:09 Temperature 98.4 F 99.1 F Pulse Rate 91 H 91 H 91 H Respiratory 20 20 Rate Blood Pressure 122/52 143/59 O2 Sat by Pulse 97 95 Oximetry 11/16/18 07:43 Temperature 98.8 F Pulse Rate 89 Respiratory 16 Rate Blood Pressure 123/52 O2 Sat by Pulse 96 Oximetry - General Appearance General appearance: well-developed, well-nourished, appears stated age EENT: ATNC, PERRL Neck: no JVD, no thyromegaly Respiratory: Present: Clear to Ascultation Cardiology: regular, S1S2 Gastrointestinal: normal, normoactive bowel sounds Integumentary: no rash, warm and dry Neurologic: no focal deficit, no asterixis, alert and oriented x3 Musculoskeletal: other (-edema) Psychiatric: mood/affect appropriate, cooperative - Lab 11/15/18 11:23 11/15/18 11:23 Most recent lab results Calcium 9.2 mg/dL (8.4-10.2) 11/15/18 11:23 Phosphorus 3.40 mg/dL (2.5-4.5) 11/14/18 12:04 - Allied health notes Allied health notes reviewed: nursing Medications & Allergies - Medications Allergies/Adverse Reactions: Allergies No Known Allergies Allergy (Verified 07/18/16 23:52) Home Medications: Home Medications Medication Instructions Recorded Confirmed Last Taken Type Metoprolol [Lopressor TAB] 25 mg PO Q12HR #60 tablet 07/09/16 11/14/18 11/14/18 Rx Insulin Lispro [Humalog 100 3 units SQ ACHS 09/15/16 11/14/18 11/14/18 History UNITS/ML Kwikpen] Adult Low Dose Aspirin EC 81 mg PO DAILY 08/03/18 11/14/18 11/14/18 History Restasis 0.05% 1 drops OU BID 08/03/18 11/14/18 08/03/18 08:00 History Spironolactone 25 mg PO DAILY 08/03/18 11/14/18 11/14/18 History AtorvaSTATin [Lipitor] 40 mg PO QHS 11/10/18 11/14/18 Unknown History Pantoprazole [Protonix TAB] 40 mg PO QDAY 11/10/18 11/14/18 Unknown History Furosemide [Lasix] 20 mg PO QDAY #30 tablet 11/13/18 11/14/18 Unknown Rx Acetaminophen [Arthritis Pain 650 mg PO Q6H PRN 11/14/18 11/14/18 Unknown History Relief] Bumetanide [Bumex 1 mg tab] 1 mg PO BID 11/14/18 11/14/18 Unknown History Clopidogrel [Plavix] 75 mg PO QDAY 11/14/18 11/14/18 Unknown History Dorzolamide HCl/Timolol Maleat 1 drop OP BID 11/14/18 11/14/18 Unknown History [Dorzolamide-Timolol Eye Drops] HYDROcodone/ACETAMINOPHEN 1 each PO Q6H PRN 11/14/18 11/14/18 Unknown History [Hydrocodone-Acetamin 5-300 mg] Insulin Glargine,Hum.rec.anlog 30 units SQ QHS 11/14/18 11/14/18 Unknown History [Dorota Maceostaida] Insulin Glargine,Hum.rec.anlog 30 units SQ QHS 11/14/18 11/14/18 Unknown History [T[place]ae[place] Solostar] guaiFENesin ER [Mucinex ER] 600 mg PO DAILY 11/14/18 11/14/18 Unknown History traMADol [Ultram] 50 mg PO Q6HR PRN 11/14/18 11/14/18 Unknown History Active Medications: Generic Name Dose Route Start Last Admin Trade Name Freq PRN Reason Stop Dose Admin Acetaminophen 650 mg 11/14/18 14:26 Tylenol PO Q4H PRN Pain MILD(1-3)/Fever >100.5/OCONNELL Aspirin 81 mg 11/15/18 10:00 11/15/18 09:20 Halfprin Ec PO 81 mg QDAY MABEL Administration Atorvastatin Calcium 40 mg 11/14/18 22:00 11/15/18 21:32 Lipitor PO 40 mg QHS MABEL Administration Clopidogrel Bisulfate 75 mg 11/14/18 17:00 11/15/18 09:18 Plavix PO 75 mg QDAY MABEL Administration Dextrose 50 ml 11/14/18 22:00 D50w (25gm) Syringe IV PRN PRN Hypoglycemia Furosemide 20 mg 11/15/18 10:00 11/15/18 09:19 Lasix PO 20 mg QDAY MABEL Administration Heparin Sodium (Porcine) 5,000 unit 11/14/18 22:00 11/15/18 21:28 Heparin SUB-Q 5,000 unit Q12H MABEL Administration Vancomycin HCl 1,250 mg/ 275 mls @ 166.667 mls/hr 11/16/18 10:00 Sodium Chloride IV Q24HR MABEL Insulin Human Regular 0 units 11/14/18 22:00 11/15/18 21:31 Humulin R SUB-Q 2 units ACHS MABEL Administration Protocol Metoprolol Tartrate 25 mg 11/14/18 22:00 11/15/18 21:32 Lopressor PO 25 mg Q12HR MABEL Administration Miscellaneous Medication 1 drops 11/14/18 22:00 Restasis 0.05% OU BID MABEL Miscellaneous Medication 30 units 11/14/18 22:00 Insulin Glargine,Hum.Rec.Anlog [Ericsaeideverton Macenile] SQ QHS MABEL Miscellaneous Medication 1 drop 11/14/18 22:00 Dorzolamide Hcl/Timolol Maleat [Dorzolamide-Timolol Eye Drops] OP BID MABEL Ondansetron HCl 4 mg 11/14/18 14:26 Zofran IV Q8H PRN Nausea And Vomiting Oxycodone/Acetaminophen 1 tab 11/14/18 14:26 Percocet 5/325 PO Q6H PRN Pain, Moderate (4-6) Pantoprazole Sodium 40 mg 11/14/18 17:00 11/15/18 13:14 Protonix PO 40 mg QDAY MABEL Administration Sodium Chloride 10 ml 11/14/18 22:00 11/15/18 21:28 Sodium Chloride Flush Syringe 10 Ml IV 10 ml BID MABEL Administration Sodium Chloride 10 ml 11/14/18 14:26 11/15/18 13:15 Sodium Chloride Flush Syringe 10 Ml IV 10 ml PRN PRN Administration LINE FLUSH Spironolactone 25 mg 11/15/18 10:00 11/15/18 09:18 Aldactone PO 25 mg QDAY MABEL Administration Tramadol HCl 50 mg 11/14/18 16:15 Ultram PO Q6HR PRN Pain
--- NOTE | 2018-11-16 08:56 | Progress Note ---
Assessment and Plan Bacteremia -reason for admission Chronic Kidney Disease Required transient HD in the past Anemia Atrioventricular Block, Second Degree s/p PPM Essential Hypertension Type 2 Diabetes Mellitus Nonrheumatic Mitral (valve) Stenosis s/p MV replacement (tissue valve) and TV repair (ring) October 12, 2018 Echo 11/09/2018: LVEF 31% Hx of CAD s/p CABG x 2 October 12, 2018 Carotid artery stenosis 50-60% right and left ICA 08/2018 Recommend: Medical therapy for coronary artery disease. Subjective Date of service: 11/16/18 Interval history: Patient denies chest pain and shortness of breath. Objective Vital Signs Temp Pulse Resp Resp BP Pulse Ox 11/16/18 07:43 98.8 F 89 16 123/52 96 11/16/18 03:09 99.1 F 91 H 20 143/59 95 11/15/18 23:37 98.4 F 91 H 20 122/52 97 11/15/18 23:18 91 H 11/15/18 19:26 98.7 F 95 H 20 152/60 98 11/15/18 16:06 93 H 20 114/38 99 11/15/18 13:20 92 H 11/15/18 13:00 16 96 11/15/18 11:28 98.7 F 93 H 18 137/61 100 11/15/18 09:19 92 H 11/15/18 09:18 92 H - Physical Examination General: No Apparent Distress HEENT: Positive: PERRL Neck: Positive: trachea midline Cardiac: Positive: Other (paced) Lungs: Positive: Decreased Breath Sounds Neuro: Positive: Grossly Intact Extremities: Absent: edema - Labs and Meds CBC 11/15/18 Range/Units 11:23 WBC 8.1 (4.5-11.0) K/mm3 RBC 3.32 L (3.65-5.03) M/mm3 Hgb 8.5 L (10.1-14.3) gm/dl Hct 25.9 L (30.3-42.9) % Plt Count 297 (140-440) K/mm3 Lymph # 1.0 L (1.2-5.4) K/mm3 [place] # 0.9 H (0.0-0.8) K/mm3 Eos # 0.1 (0.0-0.4) K/mm3 Baso # 0.0 (0.0-0.1) K/mm3 Comprehensive Metabolic Panel 11/15/18 Range/Units 11:23 Sodium 141 (137-145) mmol/L Potassium 4.2 (3.6-5.0) mmol/L Chloride 102.9 (98-107) mmol/L Carbon Dioxide 23 (22-30) mmol/L BUN 44 H (7-17) mg/dL Creatinine 1.9 H (0.7-1.2) mg/dL Glucose 185 H (65-100) mg/dL Calcium 9.2 (8.4-10.2) mg/dL - Allied health notes Allied health notes reviewed: nursing
--- NOTE | 2018-11-16 10:17 | Progress Note ---
Assessment and Plan Cultures: 11/12/2018 blood culture: 1 of 2 bottles from both sets positive for gram- positive cocci. Culture growing Coag-negative staph 11/14/2018 blood culture: No growth in 24 hours A/P: 73-year-old female with recent CABG for coronary artery disease was admitted to the hospital from 11/10/2018 to 11/13/2018 with chest pain. She has a history of AV block status post permanent pacemaker. She also is status post mitral valve replacement and tricuspid valve repair with ring in October 2018. Now with: 1) GPC Bacteremia: 1 of 2 bottles from both sets positive for gram-positive cocci. Culture growing Coag-negative staph. Asymptomatic. Per cardiology note: Echo 11/09/2018: LVEF 31%, moderate RVE, severe LAE, MV mean gradient 6.6 mm Hg, mild to moderate TR, moderately elevated RVSP. Contamination possible but given indwelling PPM, also the fact that she is s/p mitral valve replacement and tricuspid valve repair with ring, will need a LINETTE to rule out endocarditis. Continue IV Vancomycin for now, target trough 10-15 mcg/ml. 2) Acute on chronic CHF 3) Acute on chronic kidney disease: renally dose abx and monitor creatinine. Recs: follow-up LINETTE Continue IV Vancomycin for now, target trough 10-15 mcg/ml f/u blood cultures [facility] M: [phone] O:[phone] Subjective Date of service: 11/16/18 Interval history: Patient seen and examined. Sitting up in the bed. Reports no pain or generalized weakness. at bedside. No fevers. Objective - Exam Narrative Exam: Constitutional: Alert, cooperative. No acute distress Head, Ears, Nose: Normocephalic, atraumatic. External ears, nose normal Eyes: Conjunctivae/corneas clear. No icterus. No ptosis. Neck: Supple, no meningeal signs Cardiovascular: S1, S2 normal. Sternal incision appears to be healing well. No pacemaker site tenderness. Respiratory: Good air entry, clear to auscultation bilaterally GI: Soft, non-tender; bowel sounds normal. No peritoneal signs Musculoskeletal: No pedal edema, no cyanosis. Skin: No rash or abscess Hem/Lymphatic: No palpable cervical or supraclavicular nodes. No lymphangitis Psych: Mood ok. Affect normal Neurological: Awake, alert, oriented. No gross abnormality - Constitutional Vitals: Vital Signs Temp Pulse Resp BP Pulse Ox 98.8 F 89 16 123/52 96 11/16/18 07:43 11/16/18 07:43 11/16/18 07:43 11/16/18 07:43 11/16/18 07:43 Temperature -Last 24 Hours Temperature 98.8 F Temperature 99.1 F Temperature 98.4 F Temperature 98.7 F Temperature 98.7 F - Labs CBC & Chem 7: 11/15/18 11:23 11/15/18 11:23 Labs: Abnormal lab results 11/15/18 11/15/18 11/15/18 Range/Units 11:23 11:23 11:33 RBC 3.32 L (3.65-5.03) M/mm3 Hgb 8.5 L (10.1-14.3) gm/dl Hct 25.9 L (30.3-42.9) % MCV 78 L (79-97) fl MCH 26 L (28-32) pg RDW 20.9 H (13.2-15.2) % Lymph % (Auto) 12.0 L (13.4-35.0) % Bath % (Auto) 10.8 H (0.0-7.3) % Lymph # 1.0 L (1.2-5.4) K/mm3 Bath # 0.9 H (0.0-0.8) K/mm3 Seg Neutrophils % 75.5 H (40.0-70.0) % BUN 44 H (7-17) mg/dL Creatinine 1.9 H (0.7-1.2) mg/dL Glucose 185 H (65-100) mg/dL POC Glucose 214 H (70-105) 11/15/18 11/15/18 11/16/18 Range/Units 16:09 20:44 07:47 RBC (3.65-5.03) M/mm3 Hgb (10.1-14.3) gm/dl Hct (30.3-42.9) % MCV (79-97) fl MCH (28-32) pg RDW (13.2-15.2) % Lymph % (Auto) (13.4-35.0) % Bath % (Auto) (0.0-7.3) % Lymph # (1.2-5.4) K/mm3 Bath # (0.0-0.8) K/mm3 Seg Neutrophils % (40.0-70.0) % BUN (7-17) mg/dL Creatinine (0.7-1.2) mg/dL Glucose (65-100) mg/dL POC Glucose 207 H 234 H 119 H (70-105)
[2018-11-16] MEDS: PROTONIX PO SCH (10:23)
[2018-11-16] MEDS: PLAVIX PO SCH (10:23)
[2018-11-16] MEDS: ALDACTONE PO SCH (10:23)
[2018-11-16] MEDS: VANCOMYCIN 1,250 MG in NACL 0.9% 250ML 250 ML IV SCH (10:23)
[2018-11-16] MEDS: HALFPRIN EC PO SCH (10:24)
[2018-11-16] MEDS: LASIX PO SCH (10:24)
[2018-11-16] MEDS: SODIUM CHLORIDE FLUSH SYRINGE 10 ML IV SCH ×3 (10:26→22:00)
[2018-11-16] MEDS: LOPRESSOR PO SCH ×2 (10:32→21:54)
[2018-11-16] MEDS: HEPARIN SUB-Q SCH ×2 (10:33→21:58)
--- NOTE | 2018-11-16 13:57 | Progress Note ---
Assessment and Plan /Bacteremia Positive blood cultures 2 out of 4 from blood cultures drawn 11/12/18 Admitted to [facility], Repeated blood cultures 11/14/18 negative discussed with ID Physician, cont vancomycin Patient had a one time fever of 100.0 on 11/11/18, no more fever since then plan for LINETTE tomorrow /Acute on chronic diastolic CHF exacerbation Echo in july shows preserved EF 50-55% Continue Lasix at 20mg po daily. Dose was just decreased last admission few days ago, because of renal function /Diabetes mellitus type 2 Sliding scale insulin, resumed home insulins /Acute on Chronic kidney disease Consult nephrology Was just discharged home yesterday 11/13 on lasix 20mg po daily /Nonrheumatic Mitral (valve) Stenosis s/p MV replacement (tissue valve) and TV repair (ring) October 12, 2018. - Continue cardiac management per cardiology /Coronary Artery Disease, History of stent stenosis of CX s/p CABGx 2 October 12, 2018 - Carotid artery stenosis 50-60% right and left ICA 08/2018 - Continue aspirin and statin and other cardiac medications /History of AV block s/p PPM, stable /Bilateral knee swelling with likely osteoarthritis Analgesics for pain, outpatient follow-up Cannot give NSAID because of renal function DVT prophylaxis with heparin full code status Discussed with Dr. Epps, he recommends LINETTE because of pacemaker, valve surgery. Brief history: This is a 73-year old woman who was just discharged home 48 hours ago with atypical chest pain. Patient was called and asked to return to this hospital due to positive blood culture. On her previous admission, she noted a fever of 100.0. WBC of 11,400. Initial blood cultures was negative but now cultures growing Gram positive cocci in clusters 2 out of 4. Hospitalist Physical Gen: Not in acute distress, lying in bed,obese HEENT: Normocephalic, atraumatic Neck: supple, no JVD Heart: S1 and S2 reg, no murmurs, rubs or gallop Lungs: Bilateral basal crackles, no wheeze Abd: soft, non tender, non distended, normal BS Ext: Swollen knees, no clubbing, no cyanosis, Neuro:awake,alert, Oriented X 3. No focal signs Subjective Date of service: 11/16/18 Interval history: Patient seen and examined. Medical records and medication list reviewed. No acute event overnight noted by the RN. Patient denies any chest pain or difficulty breathing. Patient is tolerating diet. Discussed plan of care at bedside with patient. Plan for LINETTE tomorrow Objective - Constitutional Vitals: Vital Signs - 12hr 11/16/18 11/16/18 11/16/18 03:09 07:43 10:23 Temperature 99.1 F 98.8 F Pulse Rate 91 H 89 89 Respiratory 20 16 Rate Blood Pressure 143/59 123/52 123/52 O2 Sat by Pulse 95 96 Oximetry 11/16/18 12:03 Temperature 99.1 F Pulse Rate 91 H Respiratory 16 Rate Blood Pressure 143/56 O2 Sat by Pulse 100 Oximetry - Labs CBC & Chem 7: 11/15/18 11:23 11/17/18 08:24 Labs: Abnormal lab results 11/15/18 11/15/18 11/16/18 Range/Units 16:09 20:44 07:47 POC Glucose 207 H 234 H 119 H (70-105) 11/16/18 Range/Units 12:11 POC Glucose 211 H (70-105)
--- NOTE | 2018-11-16 14:30 | Consultation ---
History of Present Illness - [facility] Consult date: 11/16/18 Consult reason: joint pain History of present illness: 73-year-old female who comes in complaining of bilateral knee pain and swelling patient denies a history of trauma states pain came up gradually got worse over time. Patient was admitted to the hospital for medical issues consult was requested regarding knee pain.. Currently patient states the pain in her knees is much better now than before able to weight-bear and moved in the without much pain or difficulty Past History Past Medical History: CAD (s/p CABG), diabetes, heart failure (Chronic diastolic), renal failure (Chronic kidney disease) Past Surgical History: CABG (3-4 weeks ago), PTCA (coronary stents), Other (AICD) Social history: , lives with family, full code. denies: smoking, alcohol abuse Family history: other (Heart disease) Medications and Allergies Allergies Allergy/AdvReac Type Severity Reaction Status Date / Time No Known Allergies Allergy Verified 07/18/16 23:52 Home Medications Medication Instructions Recorded Confirmed Last Taken Type Metoprolol [Lopressor TAB] 25 mg PO Q12HR #60 tablet 07/09/16 11/14/18 11/14/18 Rx Insulin Lispro [Humalog 100 3 units SQ ACHS 09/15/16 11/14/18 11/14/18 History UNITS/ML Kwikpen] Adult Low Dose Aspirin EC 81 mg PO DAILY 08/03/18 11/14/18 11/14/18 History Restasis 0.05% 1 drops OU BID 08/03/18 11/14/18 08/03/18 08:00 History Spironolactone 25 mg PO DAILY 08/03/18 11/14/18 11/14/18 History AtorvaSTATin [Lipitor] 40 mg PO QHS 11/10/18 11/14/18 Unknown History Pantoprazole [Protonix TAB] 40 mg PO QDAY 11/10/18 11/14/18 Unknown History Furosemide [Lasix] 20 mg PO QDAY #30 tablet 11/13/18 11/14/18 Unknown Rx Acetaminophen [Arthritis Pain 650 mg PO Q6H PRN 11/14/18 11/14/18 Unknown History Relief] Bumetanide [Bumex 1 mg tab] 1 mg PO BID 11/14/18 11/14/18 Unknown History Clopidogrel [Plavix] 75 mg PO QDAY 11/14/18 11/14/18 Unknown History Dorzolamide HCl/Timolol Maleat 1 drop OP BID 11/14/18 11/14/18 Unknown History [Dorzolamide-Timolol Eye Drops] HYDROcodone/ACETAMINOPHEN 1 each PO Q6H PRN 11/14/18 11/14/18 Unknown History [Hydrocodone-Acetamin 5-300 mg] Insulin Glargine,Hum.rec.anlog 30 units SQ QHS 11/14/18 11/14/18 Unknown History [Todawson Maceostaida] Insulin Glargine,Hum.rec.anlog 30 units SQ QHS 11/14/18 11/14/18 Unknown History [Toujeo Solostar] guaiFENesin ER [Mucinex ER] 600 mg PO DAILY 11/14/18 11/14/18 Unknown History traMADol [Ultram] 50 mg PO Q6HR PRN 11/14/18 11/14/18 Unknown History Active Meds: Active Medications Acetaminophen (Tylenol) 650 mg PO Q4H PRN PRN Reason: Pain MILD(1-3)/Fever >100.5/OCONNELL Aspirin (Halfprin Ec) 81 mg PO QDAY [facility] Last Admin: 11/16/18 10:24 Dose: 81 mg Documented by: Atorvastatin Calcium (Lipitor) 40 mg PO QHS [facility] Last Admin: 11/15/18 21:32 Dose: 40 mg Documented by: Clopidogrel Bisulfate (Plavix) 75 mg PO QDAY [facility] Last Admin: 11/16/18 10:23 Dose: 75 mg Documented by: Dextrose (D50w (25gm) Syringe) 50 ml IV PRN PRN PRN Reason: Hypoglycemia Furosemide (Lasix) 20 mg PO QDAY [facility] Last Admin: 11/16/18 10:24 Dose: 20 mg Documented by: Heparin Sodium (Porcine) (Heparin) 5,000 unit SUB-Q Q12H [facility] Last Admin: 11/16/18 10:33 Dose: 5,000 unit Documented by: Vancomycin HCl 1,250 mg/ (Sodium Chloride) 275 mls @ 166.667 mls/hr IV Q24HR [facility] Last Admin: 11/16/18 10:23 Dose: 166.667 mls/hr Documented by: Insulin Human Regular (Humulin R) 0 units SUB-Q ACHS [facility]; Protocol Last Admin: 11/16/18 14:10 Dose: 2 units Documented by: Metoprolol Tartrate (Lopressor) 25 mg PO Q12HR [facility] Last Admin: 11/16/18 10:32 Dose: 25 mg Documented by: Miscellaneous Medication (Restasis 0.05%) 1 drops OU BID [facility] Miscellaneous Medication (Insulin Glargine,Hum.Rec.Anlog [Toujeo Solostar]) 30 units SQ QHS [facility] Miscellaneous Medication (Dorzolamide Hcl/Timolol Maleat [Dorzolamide-Timolol Eye Drops]) 1 drop OP BID [facility] Ondansetron HCl (Zofran) 4 mg IV Q8H PRN PRN Reason: Nausea And Vomiting Oxycodone/Acetaminophen (Percocet 5/325) 1 tab PO Q6H PRN PRN Reason: Pain, Moderate (4-6) Pantoprazole Sodium (Protonix) 40 mg PO QDAY [facility] Last Admin: 11/16/18 10:23 Dose: 40 mg Documented by: Sodium Chloride (Sodium Chloride Flush Syringe 10 Ml) 10 ml IV BID [facility] Last Admin: 11/16/18 10:26 Dose: 10 ml Documented by: Sodium Chloride (Sodium Chloride Flush Syringe 10 Ml) 10 ml IV PRN PRN PRN Reason: LINE FLUSH Last Admin: 11/15/18 13:15 Dose: 10 ml Documented by: Spironolactone (Aldactone) 25 mg PO QDAY [facility] Last Admin: 11/16/18 10:23 Dose: 25 mg Documented by: Tramadol HCl (Ultram) 50 mg PO Q6HR PRN PRN Reason: Pain Physical Examination - Physical exam Narrative exam: On physical examination significant musculoskeletal findings related to the lower extremities at the knees she was noted to have a mild joint effusion there is no joint line tenderness no obvious ligament instability there is mild crepitus noted on passive range of motion Eyes: PERRL ENT: Positive: clear oral mucosa Respiratory effort: normal Respiratory: bilateral: CTA Rhythm: regular Heart Sounds: Positive: S1 & S2 General gastrointestinal: Positive: soft, non-tender, non-distended, normal bowel sounds Integumentary: clear, warm, dry Neurologic: Positive: CNII-XII intact, moves all extremities, gait normal. Negative: focal deficits - Cervical Spine Neck pain: none Tenderness with palpation: none Full ROM: yes ROM: flexion: normal ROM: extension: normal ROM: rotation right: normal ROM: rotation left: normal ROM: lateral flexion right: normal ROM: lateral flexion left: normal - Lumbar Spine Back pain: none Tenderness with palpation: none Appearance: normal Full ROM: yes ROM: flexion: normal ROM: extension: normal ROM: rotation right: normal ROM: rotation left: normal ROM: lateral flexion right: normal ROM: lateral flexion left: normal Assessment and Plan Bilateral osteoarthritis knee mild to moderate and in nature Recommendations continue oral anti-inflammatory medications along with physical therapy for range of motion and strengthening exercises both lower extremities
[2018-11-17] MEDS: HumuLIN R SUB-Q SCH ×2 (08:25→14:27)
[2018-11-17 09:00] LABS: Calcium 9.5 mg/dL (8.4-10.2)
--- NOTE | 2018-11-17 09:21 | Progress Note ---
Assessment and Plan - Patient Problems (1) Acute kidney injury superimposed on chronic kidney disease Current Visit: No Status: Chronic Plan to address problem: Overall renal function is stable. Will continue to monitor. (2) Bacteremia Current Visit: Yes Status: Acute Plan to address problem: Patient started on IV vancomycin. Repeat Cultures drawn. One out of 2 bottles have been growing coagulase negative staph. Infectious disease evaluation noted. Plan for transesophageal echocardiogram this morning for further evaluation. (3) Acute pulmonary edema Current Visit: No Status: Acute Plan to address problem: Overall respiratory status has improved, and will maintain on lasix 20 mg daily. (4) Hypertensive chronic kidney disease with stage 1 through stage 4 chronic kidney disease, or unspecified chronic kidney disease Current Visit: No Status: Chronic Plan to address problem: Agree with holding ACEi at present time. Will continue to monitor on current regimen. (5) Type 2 diabetes mellitus with diabetic chronic kidney disease Current Visit: No Status: Chronic Qualifiers: Chronic kidney disease stage: stage 3 (moderate) Plan to address problem: DM management per primary team. Subjective Date of service: 11/17/18 Interval history: No acute issues overnight. Patient is being transferred to have a transesophageal echocardiogram this morning. Blood cultures repeat have been negative as of now. No fevers overnight. Renal function is overall stable. Objective - Vital Signs Vital signs: Vital Signs - 12hr 11/16/18 11/16/18 11/17/18 21:54 23:25 03:00 Temperature 99.7 F H Pulse Rate 98 H 91 H 91 H Respiratory 20 Rate Blood Pressure 148/70 165/72 O2 Sat by Pulse 96 Oximetry 11/17/18 03:42 Temperature 99.3 F Pulse Rate 90 Respiratory 20 Rate Blood Pressure 145/57 O2 Sat by Pulse 97 Oximetry - General Appearance General appearance: well-developed, well-nourished, appears stated age EENT: ATNC, PERRL Neck: no JVD, no thyromegaly Respiratory: Present: Clear to Ascultation Cardiology: regular, normal heart rate Gastrointestinal: normal, normoactive bowel sounds Integumentary: no rash, warm and dry Neurologic: no focal deficit Psychiatric: mood/affect appropriate, cooperative - Lab 11/15/18 11:23 11/17/18 08:24 Most recent lab results Calcium 9.5 mg/dL (8.4-10.2) 11/17/18 08:24 Phosphorus 3.40 mg/dL (2.5-4.5) 11/14/18 12:04 - Imaging Chest x-ray: report reviewed - Allied health notes Allied health notes reviewed: nursing Medications & Allergies - Medications Allergies/Adverse Reactions: Allergies No Known Allergies Allergy (Verified 07/18/16 23:52) Home Medications: Home Medications Medication Instructions Recorded Confirmed Last Taken Type Metoprolol [Lopressor TAB] 25 mg PO Q12HR #60 tablet 07/09/16 11/14/18 11/14/18 Rx Insulin Lispro [Humalog 100 3 units SQ ACHS 09/15/16 11/14/18 11/14/18 History UNITS/ML Kwikpen] Adult Low Dose Aspirin EC 81 mg PO DAILY 08/03/18 11/14/18 11/14/18 History Restasis 0.05% 1 drops OU BID 08/03/18 11/14/18 08/03/18 08:00 History Spironolactone 25 mg PO DAILY 08/03/18 11/14/18 11/14/18 History AtorvaSTATin [Lipitor] 40 mg PO QHS 11/10/18 11/14/18 Unknown History Pantoprazole [Protonix TAB] 40 mg PO QDAY 11/10/18 11/14/18 Unknown History Furosemide [Lasix] 20 mg PO QDAY #30 tablet 11/13/18 11/14/18 Unknown Rx Acetaminophen [Arthritis Pain 650 mg PO Q6H PRN 11/14/18 11/14/18 Unknown History Relief] Bumetanide [Bumex 1 mg tab] 1 mg PO BID 11/14/18 11/14/18 Unknown History Clopidogrel [Plavix] 75 mg PO QDAY 11/14/18 11/14/18 Unknown History Dorzolamide HCl/Timolol Maleat 1 drop OP BID 11/14/18 11/14/18 Unknown History [Dorzolamide-Timolol Eye Drops] HYDROcodone/ACETAMINOPHEN 1 each PO Q6H PRN 11/14/18 11/14/18 Unknown History [Hydrocodone-Acetamin 5-300 mg] Insulin Glargine,Hum.rec.anlog 30 units SQ QHS 11/14/18 11/14/18 Unknown History [Dorota Samay[place]] Insulin Glargine,Hum.rec.anlog 30 units SQ QHS 11/14/18 11/14/18 Unknown History [Bogdandawson Samayoa] guaiFENesin ER [Mucinex ER] 600 mg PO DAILY 11/14/18 11/14/18 Unknown History traMADol [Ultram] 50 mg PO Q6HR PRN 11/14/18 11/14/18 Unknown History Active Medications: Generic Name Dose Route Start Last Admin Trade Name Freq PRN Reason Stop Dose Admin Acetaminophen 650 mg 11/14/18 14:26 Tylenol PO Q4H PRN Pain MILD(1-3)/Fever >100.5/OCONNELL Aspirin 81 mg 11/15/18 10:00 11/16/18 10:24 Halfprin Ec PO 81 mg QDAY MABEL Administration Atorvastatin Calcium 40 mg 11/14/18 22:00 11/16/18 21:53 Lipitor PO 40 mg QHS MABEL Administration Benzocaine 3 spray 11/17/18 09:00 Hurricaine One 20% Topical [place] MM PREOP NR Clopidogrel Bisulfate 75 mg 11/14/18 17:00 11/16/18 10:23 Plavix PO 75 mg QDAY MABEL Administration Dextrose 50 ml 11/14/18 22:00 D50w (25gm) Syringe IV PRN PRN Hypoglycemia Furosemide 20 mg 11/15/18 10:00 11/16/18 10:24 Lasix PO 20 mg QDAY [facility] Administration Heparin Sodium (Porcine) 5,000 unit 11/14/18 22:00 11/16/18 21:58 Heparin SUB-Q 5,000 unit Q12H [facility] Administration Vancomycin HCl 1,250 mg/ 275 mls @ 166.667 mls/hr 11/16/18 10:00 11/16/18 10:23 Sodium Chloride IV 166.667 mls/hr Q24HR [facility]AB[facility] Administration Sodium Chloride 500 mls @ 50 mls/hr 11/17/18 09:00 Nacl 0.9% 500 Ml IV DIRECT [facility]ABEL Insulin Human Regular 0 units 11/14/18 22:00 11/17/18 08:25 Humulin R SUB-Q Not Given ACHS [facility] Protocol Metoprolol Tartrate 25 mg 11/14/18 22:00 11/16/18 21:54 Lopressor PO 25 mg Q12HR [facility] Administration Miscellaneous Medication 1 drops 11/14/18 22:00 Restasis 0.05% OU BID [facility] Miscellaneous Medication 30 units 11/14/18 22:00 Insulin Glargine,Hum.Rec.Anlog [Dorota Nakitanile] SQ QHS [facility] Miscellaneous Medication 1 drop 11/14/18 22:00 Dorzolamide Hcl/Timolol Maleat [Dorzolamide-Timolol Eye Drops] OP BID [facility] Ondansetron HCl 4 mg 11/14/18 14:26 Zofran IV Q8H PRN Nausea And Vomiting Oxycodone/Acetaminophen 1 tab 11/14/18 14:26 Percocet 5/325 PO Q6H PRN Pain, Moderate (4-6) Pantoprazole Sodium 40 mg 11/14/18 17:00 11/16/18 10:23 Protonix PO 40 mg QDAY [facility] Administration Sodium Chloride 10 ml 11/14/18 22:00 11/16/18 22:00 Sodium Chloride Flush Syringe 10 Ml IV 10 ml BID [facility] Administration Sodium Chloride 10 ml 11/14/18 14:26 11/15/18 13:15 Sodium Chloride Flush Syringe 10 Ml IV 10 ml PRN PRN Administration LINE FLUSH Spironolactone 25 mg 11/15/18 10:00 11/16/18 10:23 Aldactone PO 25 mg QDAY [facility] Administration Tramadol HCl 50 mg 11/14/18 16:15 Ultram PO Q6HR PRN Pain
[2018-11-17] MEDS ORDERED: XYLOCAINE MPF 2% ONE (09:35)
[2018-11-17] MEDS ORDERED: DIPRIVAN 10 MG/ML IV ONE ×3 (09:35→09:36)
[2018-11-17] MEDS: PLAVIX PO SCH ×2 (10:12→11:57)
[2018-11-17] MEDS: PROTONIX PO SCH ×2 (10:12→11:57)
[2018-11-17] MEDS: ALDACTONE PO SCH ×2 (10:12→11:56)
[2018-11-17] MEDS: HALFPRIN EC PO SCH ×2 (10:12→11:59)
[2018-11-17] MEDS: HEPARIN SUB-Q SCH (10:12)
[2018-11-17] MEDS: LASIX PO SCH ×2 (10:12→11:57)
[2018-11-17] MEDS: LOPRESSOR PO SCH ×2 (10:12→11:58)
[2018-11-17] MEDS: SODIUM CHLORIDE FLUSH SYRINGE 10 ML IV SCH ×2 (10:13→12:04)
[2018-11-17] MEDS: VANCOMYCIN 1,250 MG in NACL 0.9% 250ML 250 ML IV SCH ×2 (10:13→12:01)
--- NOTE | 2018-11-17 10:40 | Progress Note ---
Assessment and Plan Cultures: 11/12/2018 blood culture: 1 of 2 bottles from both sets positive for gram- positive cocci. Culture growing Coag-negative staph 11/14/2018 blood culture: No growth A/P: 73-year-old female with recent CABG for coronary artery disease was admitted to the hospital from 11/10/2018 to 11/13/2018 with chest pain. She has a history of AV block status post permanent pacemaker. She also is status post mitral valve replacement and tricuspid valve repair with ring in October 2018. Now with: 1) GPC Bacteremia: 1 of 2 bottles from both sets positive for gram-positive cocci. Culture growing Coag-negative staph. Asymptomatic. Per cardiology note: Echo 11/09/2018: LVEF 31%, moderate RVE, severe LAE, MV mean gradient 6.6 mm Hg, mild to moderate TR, moderately elevated RVSP. Contamination possible but given indwelling PPM, also the fact that she is s/p mitral valve replacement and tric uspid valve repair with ring, will need a LINETTE to rule out endocarditis- report pending. Continue IV Vancomycin for now, target trough 10-15 mcg/ml. If LINETTE negative, ok to discharge no abx needed. 2) Acute on chronic CHF 3) Acute on chronic kidney disease: renally dose abx and monitor creatinine. Recs: follow-up LINETTE - report pending If LINETTE negative, ok to discharge no abx needed. Continue IV Vancomycin for now, target trough 10-15 mcg/ml [facility] M: [phone] O:[phone] Subjective Date of service: 11/17/18 Interval history: Patient seen and examined. Sitting up in the bed. Reports no pain or generalized weakness. at bedside. No fevers. Objective - Exam Narrative Exam: Constitutional: Alert, cooperative. No acute distress Head, Ears, Nose: Normocephalic, atraumatic. External ears, nose normal Eyes: Conjunctivae/corneas clear. No icterus. No ptosis. Neck: Supple, no meningeal signs Cardiovascular: S1, S2 normal. Sternal incision appears to be healing well. No pacemaker site tenderness. Respiratory: Good air entry, clear to auscultation bilaterally GI: Soft, non-tender; bowel sounds normal. No peritoneal signs Musculoskeletal: No pedal edema, no cyanosis. Skin: No rash or abscess Hem/Lymphatic: No palpable cervical or supraclavicular nodes. No lymphangitis Psych: Mood ok. Affect normal Neurological: Awake, alert, oriented. No gross abnormality - Constitutional Vitals: Vital Signs Temp Pulse Resp BP Pulse Ox 98.0 F 90 14 131/66 100 11/17/18 09:18 11/17/18 10:15 11/17/18 10:15 11/17/18 10:15 11/17/18 10:15 Temperature -Last 24 Hours Temperature 98.0 F Temperature 99.3 F Temperature 99.7 F Temperature 98.1 F Temperature 99.3 F Temperature 99.1 F - Labs CBC & Chem 7: 11/15/18 11:23 11/17/18 08:24 Labs: Abnormal lab results 11/16/18 11/16/18 11/16/18 Range/Units 12:11 16:42 21:19 BUN (7-17) mg/dL Creatinine (0.7-1.2) mg/dL Glucose (65-100) mg/dL POC Glucose 211 H 210 H 250 H (70-105) 11/17/18 11/17/18 Range/Units 07:40 08:24 BUN 29 H (7-17) mg/dL Creatinine 1.4 H (0.7-1.2) mg/dL Glucose 147 H (65-100) mg/dL POC Glucose 160 H (70-105)
--- NOTE | 2018-11-17 10:47 | Anesthesia Day of Surgery ---
Anesthesia Day of Surgery - Day of Surgery Patient Examined: Yes Patient H&P Reviewed: Yes Patient is NPO: Yes
--- NOTE | 2018-11-17 10:47 | Anesthesia Consultation ---
Anesthesia Consult and Med Hx Date of service: 11/17/18 - Airway Anesthetic Teeth Evaluation: Poor (edetulous upper. 2 lower canines remaining wish patient reports are may be loose.) ROM Head & Neck: Adequate Mental/Hyoid Distance: Inadequate Mallampati Class: Class II Intubation Access Assessment: Probably Good - Pulmonary Exam CTA: Yes - Cardiac Exam Cardiac Exam: RRR - Pre-Operative Health Status ASA Pre-Surgery Classification: ASA3 Proposed Anesthetic Plan: MAC - Pulmonary Hx Smoking: No Hx Asthma: No SOB: Yes (occasionally with exertion; chronic and unchanged) Home Oxygen Therapy: No - Cardiovascular System Hx Hypertension: Yes Hx Coronary Artery Disease: Yes (s/p CABG 10/12/18) Hx Heart Attack/AMI: Yes Hx Cardia Arrhythmia: Yes (2deg AV block ) Hx Pacemaker: Yes Hx Valvular Heart Disease: Yes (s/p MV replacement, TV repair 10/12/18; last dose plavix 11/16) - Central Nervous System Hx Seizures: No CVA: No - Gastrointestinal Hx Gastroesophageal Reflux Disease: No - Endocrine Hx Renal Disease: Yes (CKD; previously required HD but not recently) Hx Liver Disease: No Hx Insulin Dependent Diabetes: Yes Hx Thyroid Disease: No - Hematic Hx Anemia: Yes - Other Systems Hx Obesity: Yes - Additional Comments Anesthesia Medical History Comments: No hx anesthetic complications.
--- NOTE | 2018-11-17 10:47 | Post Anesthesia Evaluation ---
- Post Anesthesia Evaluation Patient Participated: Yes Airway Patent: Yes Stable Respiratory Function: Yes Nausea/Vomiting: No Temp > 96.8F: Yes Pain Manageable: Yes Adequeate Hydration: Yes Anesthesia Complications: No Other Comments: Dentition unchanged
[2018-11-17] MEDS ORDERED: HURRICAINE ONE 20% TOPICAL SPRAY MM NR (11:00)
[2018-11-17] MEDS ORDERED: NACL 0.9% 500 ML 500 ML IV SCH (11:00)
--- NOTE | 2018-11-17 14:20 | Discharge Summary ---
Providers - Providers Date of Admission: 11/14/18 14:26 Date of discharge: 11/17/18 Attending physician: RADHA LEUNG 11/14/18 14:26 Consult to Physician [CONS] Routine Comment: Consulting Provider: MCKENZIE SOL Physician Instructions: Reason For Exam: acute on ckd 11/15/18 10:40 Consult to Physician [CONS] Routine Comment: Consulting Provider: JERMAINE CARVER Physician Instructions: Reason For Exam: Bacteremia 2 out of 4 11/15/18 10:41 Consult to Physician [CONS] Routine Comment: Consulting Provider: ASHISH CONKLIN Physician Instructions: Reason For Exam: CAd, recent CABG 11/15/18 13:17 Consult to Physician [CONS] Routine Comment: Consulting Provider: MARIELENA CHAN Physician Instructions: Reason For Exam: Bilateral knee pain, effusions 11/15/18 14:23 Consult to Physician [CONS] Routine Comment: Consulting Provider: ASHISH CONKLIN Physician Instructions: Reason For Exam: LINETTE for fever,bacteremia Primary care physician: STEPAN NEWBY Hospitalization Condition: Stable Pertinent studies: cxr Hospital course: Brief history: This is a 73-year old woman who was just discharged home 48 hours ago with atypical chest pain. Patient was called and asked to return to this hospital due to positive blood culture. On her previous admission, she noted a fever of 100.0. WBC of 11,400. Initial blood cultures was negative but then cultures were growing Gram positive cocci in clusters 2 out of 4. She was admitted for further evaluation and management. Discharge diagnosis and management: /Bacteremia, likely contamination Positive blood cultures 2 out of 4 from blood cultures drawn 11/12/18 Admitted to [facility], Repeated blood cultures 11/14/18 negative discussed with ID Physician, placed on vancomycin Patient had a one time fever of 100.0 on 11/11/18, no more fever since then Status post LINETTE today showed no vegetation - Patient was discharged home in stable condition without any antibiotics per ID recommendation /Acute on chronic diastolic CHF exacerbation Echo in july shows preserved EF 50-55% Continue Lasix at 20mg po daily. Dose was just decreased last admission few days ago, because of renal function /Diabetes mellitus type 2 Placed on Sliding scale insulin, resumed home insulins /Acute on Chronic kidney disease Consulted nephrology, Cr Improved Was discharged home 11/13 on lasix 20mg po daily /Nonrheumatic Mitral (valve) Stenosis s/p MV replacement (tissue valve) and TV repair (ring) October 12, 2018. - Continue cardiac management per cardiology /Coronary Artery Disease, History of stent stenosis of CX s/p CABGx 2 October 12, 2018 - Carotid artery stenosis 50-60% right and left ICA 08/2018 - Continue aspirin and statin and other cardiac medications /History of AV block s/p PPM, stable /Bilateral knee swelling with likely osteoarthritis Analgesics for pain, outpatient follow-up Cannot give NSAID because of renal function DVT prophylaxis with heparin full code status Disposition: Home with outpatient follow-up Hospitalist Physical Gen: Not in acute distress, lying in bed,obese HEENT: Normocephalic, atraumatic Neck: supple, no JVD Heart: S1 and S2 reg, no murmurs, rubs or gallop Lungs: Bilateral basal crackles, no wheeze Abd: soft, non tender, non distended, normal BS Ext: Swollen knees, no clubbing, no cyanosis, Neuro:awake,alert, Oriented X 3. No focal signs Disposition: [id number] HOME UNDER HOME [facility] Time spent for discharge: 34 minutes Core Measure Documentation - Palliative Care Palliative Care/ Comfort Measures: Not Applicable - Core Measures Any of the following diagnoses?: none Exam - Constitutional Vitals: Temp Pulse Resp BP Pulse Ox 98.1 F 90 22 171/72 95 11/17/18 10:45 11/17/18 11:15 11/17/18 11:15 11/17/18 11:58 11/17/18 11:15 Plan Activity: advance as tolerated Weight Bearing Status: Weight Bear as Tolerated Diet: low fat, low salt, diabetic Special Instructions: record daily BP diary, record blood sugar diary Follow up with: STEPAN NEWBY MD [Primary Care Provider] - 3-5 Days
[2018-11-17 15:52] VITALS: BP 148/78
== END 2018-11-17 17:15 | disposition home health service (06) | DRG 682 ==
LOC: ED 08:58 → 4A 14:26
PROVIDERS: ADMIT Internal Medicine; ATTEND Internal Medicine
DX: N17.9 Acute kidney failure, unspecified (principal); I50.33 Acute on chronic diastolic (congestive) heart failure; I13.0 Hypertensive heart and chronic kidney disease with heart failure and stage 1 through stage 4 chronic kidney disease, or unspecified chronic kidney disease; I42.9 Cardiomyopathy, unspecified; N18.3 Chronic kidney disease, stage 3 (moderate); E11.22 Type 2 diabetes mellitus with diabetic chronic kidney disease; K21.9 Gastro-esophageal reflux disease without esophagitis; F17.210 Nicotine dependence, cigarettes, uncomplicated; D63.1 Anemia in chronic kidney disease; I25.10 Atherosclerotic heart disease of native coronary artery without angina pectoris; I65.22 Occlusion and stenosis of left carotid artery; D64.9 Anemia, unspecified; M17.0 Bilateral primary osteoarthritis of knee; I25.2 Old myocardial infarction; Z79.4 Long term (current) use of insulin; Z95.5 Presence of coronary angioplasty implant and graft; Z95.1 Presence of aortocoronary bypass graft; Z95.810 Presence of automatic (implantable) cardiac defibrillator
CPT/HCPCS: 36415; 71045; 80048; 80076; 81001; 82140; 82805; 82962; 84100; 85025; 85610; 85730; 87040; 87086; 93005; 93010; 93312; 93320; 93325; 96365; 96366; G0378; A9270-GY; J1644; J1815; J2704; J3246; J3370; J7040; J7050

== ENCOUNTER 2018-12-03 16:48 | Inpatient (IN) | payer MEDICARE ==
[2018-12-03] MEDS ORDERED: LASIX IV ONE (17:09)
--- NOTE | 2018-12-03 17:19 | Emergency Department Report ---
ED Shortness of Breath HPI - General Chief Complaint: Dyspnea/Respdistress Stated Complaint: PACEMAKER Time Seen by Provider: 12/03/18 17:04 Source: EMS Mode of arrival: Stretcher Limitations: No Limitations - History of Present Illness Initial Comments: 3-year-old woman with history of coronary artery disease, mitral stenosis, chronic kidney disease. She has had history of CABG 4 weeks ago at [facility]. She follows up with Dr. Laura [facility]. She has been c/o worsening shortness of breath and chest pain at home. Her home health nurse came to check on her yesterday and recommended that she comes to ER. She didn't. Her symptoms worsens, and are accompanied with palpitations. Home health nurse again saw patient, spoke with Patient's cardiology group who recommended that she comes to Er for further eval. - Related Data Home Medications Medication Instructions Recorded Confirmed Last Taken Insulin Lispro [Humalog 100 3 units SQ ACHS 09/15/16 11/14/18 11/14/18 UNITS/ML Kwikpen] Adult Low Dose Aspirin EC 81 mg PO DAILY 08/03/18 11/14/18 11/14/18 Restasis 0.05% 1 drops OU BID 08/03/18 11/14/18 08/03/18 08:00 Spironolactone 25 mg PO DAILY 08/03/18 11/14/18 11/14/18 AtorvaSTATin [Lipitor] 40 mg PO QHS 11/10/18 11/14/18 Unknown Pantoprazole [Protonix TAB] 40 mg PO QDAY 11/10/18 11/14/18 Unknown Acetaminophen [Arthritis Pain 650 mg PO Q6H PRN 11/14/18 11/14/18 Unknown Relief] Bumetanide [Bumex 1 mg tab] 1 mg PO BID 11/14/18 11/14/18 Unknown Clopidogrel [Plavix] 75 mg PO QDAY 11/14/18 11/14/18 Unknown Dorzolamide HCl/Timolol Maleat 1 drop OP BID 11/14/18 11/14/18 Unknown [Dorzolamide-Timolol Eye Drops] Insulin Glargine,Hum.rec.anlog 30 units SQ QHS 11/14/18 11/14/18 Unknown [Dorota Samayoa] guaiFENesin ER [Mucinex ER] 600 mg PO DAILY 11/14/18 11/14/18 Unknown traMADol [Ultram 50 MG tab] 50 mg PO Q6HR PRN 11/14/18 11/14/18 Unknown Previous Rx's Medication Instructions Recorded Last Taken Type Metoprolol [Lopressor TAB] 25 mg PO Q12HR #60 tablet 07/09/16 11/14/18 Rx Furosemide [Lasix TAB] 20 mg PO QDAY #30 tablet 11/13/18 Unknown Rx Allergies Allergy/AdvReac Type Severity Reaction Status Date / Time No Known Allergies Allergy Verified 07/18/16 23:52 ED Review of Systems ROS: Stated complaint: PACEMAKER Other details as noted in HPI Comment: All other systems reviewed and negative Constitutional: denies: chills Eyes: denies: eye pain Respiratory: cough, orthopnea, SOB with exertion, SOB at rest Cardiovascular: chest pain, palpitations, dyspnea on exertion ED Past Medical Hx - Past Medical History Hx Hypertension: Yes Hx Heart Attack/AMI: Yes Hx Congestive Heart Failure: Yes Hx Diabetes: Yes Hx GERD: Yes Hx Liver Disease: No Hx Renal Disease: Yes (CKD; previously required HD but not recently) Hx Arthritis: No Hx Seizures: No Hx Asthma: No Hx COPD: No Hx Tuberculosis: No Hx HIV: No Additional medical history: stents,pacemaker - Surgical History Hx Coronary Stent: Yes Hx Open Heart Surgery: Yes (Bypass 3 weeks ago) Hx Pacemaker: Yes Hx Internal Defibrillator: Yes Additional Surgical History: valve surgery, pacemaker - Social History Smoking Status: Never Smoker - Medications Home Medications: Home Medications Medication Instructions Recorded Confirmed Last Taken Type Metoprolol [Lopressor TAB] 25 mg PO Q12HR #60 tablet 07/09/16 11/14/18 11/14/18 Rx Insulin Lispro [Humalog 100 3 units SQ ACHS 09/15/16 11/14/18 11/14/18 History UNITS/ML Kwikpen] Adult Low Dose Aspirin EC 81 mg PO DAILY 08/03/18 11/14/18 11/14/18 History Restasis 0.05% 1 drops OU BID 08/03/18 11/14/18 08/03/18 08:00 History Spironolactone 25 mg PO DAILY 08/03/18 11/14/18 11/14/18 History AtorvaSTATin [Lipitor] 40 mg PO QHS 11/10/18 11/14/18 Unknown History Pantoprazole [Protonix TAB] 40 mg PO QDAY 11/10/18 11/14/18 Unknown History Furosemide [Lasix TAB] 20 mg PO QDAY #30 tablet 11/13/18 11/14/18 Unknown Rx Acetaminophen [Arthritis Pain 650 mg PO Q6H PRN 11/14/18 11/14/18 Unknown History Relief] Bumetanide [Bumex 1 mg tab] 1 mg PO BID 11/14/18 11/14/18 Unknown History Clopidogrel [Plavix] 75 mg PO QDAY 11/14/18 11/14/18 Unknown History Dorzolamide HCl/Timolol Maleat 1 drop OP BID 11/14/18 11/14/18 Unknown History [Dorzolamide-Timolol Eye Drops] Insulin Glargine,Hum.rec.anlog 30 units SQ QHS 11/14/18 11/14/18 Unknown History [Dorota Samayoa] guaiFENesin ER [Mucinex ER] 600 mg PO DAILY 11/14/18 11/14/18 Unknown History traMADol [Ultram 50 MG tab] 50 mg PO Q6HR PRN 11/14/18 11/14/18 Unknown History ED Physical Exam - General Limitations: No Limitations General appearance: alert, anxious - Head Head exam: Present: atraumatic, normocephalic - Eye Eye exam: Present: normal appearance, PERRL - ENT ENT exam: Present: normal exam, normal orophraynx - Neck Neck exam: Present: normal inspection. Absent: tenderness, meningismus - Respiratory Respiratory exam: Present: decreased breath sounds - Cardiovascular Cardiovascular Exam: Present: regular rate, systolic murmur - GI/Abdominal GI/Abdominal exam: Present: soft - Extremities Exam Extremities exam: Present: pedal edema (3 plus) - Neurological Exam Neurological exam: Present: alert, oriented X3, CN II-XII intact - Psychiatric Psychiatric exam: Present: normal affect - Skin Skin exam: Present: warm ED Course Vital Signs 12/03/18 12/03/18 12/03/18 17:07 17:13 17:15 Temperature Pulse Rate 90 90 Respiratory 8 L 18 24 Rate Blood Pressure 165/87 Blood Pressure [Left] O2 Sat by Pulse 100 100 Oximetry 12/03/18 12/03/18 12/03/18 17:26 17:29 17:30 Temperature 98.9 F 98.9 F Pulse Rate 83 83 92 H Respiratory 16 16 25 H Rate Blood Pressure 157/77 157/80 Blood Pressure 157/77 [Left] O2 Sat by Pulse 100 100 100 Oximetry 12/03/18 12/03/18 12/03/18 17:45 18:00 18:15 Temperature Pulse Rate 90 90 91 H Respiratory 23 22 21 Rate Blood Pressure 165/77 180/84 165/82 Blood Pressure [Left] O2 Sat by Pulse 100 100 100 Oximetry 12/03/18 12/03/18 12/03/18 18:30 18:45 19:00 Temperature Pulse Rate 90 91 H 92 H Respiratory 20 22 25 H Rate Blood Pressure 168/82 168/82 156/90 Blood Pressure [Left] O2 Sat by Pulse 100 100 100 Oximetry 12/03/18 19:15 Temperature Pulse Rate Respiratory 20 Rate Blood Pressure 156/90 Blood Pressure [Left] O2 Sat by Pulse 100 Oximetry ED Medical Decision Making - Lab Data Result diagrams: 12/03/18 17:07 12/03/18 17:07 Critical care attestation.: If time is entered above; I have spent that time in minutes in the direct care of this critically ill patient, excluding procedure time. ED Disposition Clinical Impression: Acute on chronic diastolic (congestive) heart failure Chest pain Qualifiers: Chest pain type: chest pain on breathing Qualified Code(s): R07.1 - Chest pain on breathing; R07.81 - Pleurodynia Disposition: OP ADMIT IP TO THIS HOSP Is pt being admited?: Yes Condition: Stable
[2018-12-03 17:22] LABS: Basophils # (Auto) 0.1 K/mm3 (0.0-0.1); Eosinophils # (Auto) 0.1 K/mm3 (0.0-0.4); Eosinophils % (Auto) 0.9 % (0.0-4.3); Hematocrit 31.3 % (30.3-42.9); Hemoglobin 10.2 gm/dl (10.1-14.3); Lymphocytes # (Auto) 1.4 K/mm3 (1.2-5.4); Lymphocytes % (Auto) 19.8 % (13.4-35.0); Mean Corpuscular HGB Conc 33 % (30-34); Mean Corpuscular Volume 78 fl (79-97); Monocytes # (Auto) 0.6 K/mm3 (0.0-0.8); Monocytes % (Auto) 8.8 % (0.0-7.3); Platelet Count 197 K/mm3 (140-440)
[2018-12-03 17:32] LABS: INR 0.94 (0.87-1.13)
[2018-12-03 18:02] LABS: Partial Thromboplastin Time < 20.0 Sec. (24.2-36.6)
--- NOTE | 2018-12-03 18:02 | XRay Report ---
CHEST 1 VIEW INDICATION / CLINICAL INFORMATION: Chest Pain. COMPARISON: None available. FINDINGS: SUPPORT DEVICES: None. HEART / MEDIASTINUM: No significant abnormality. LUNGS / PLEURA: Patchy consolidation of both lower lungs. Small pleural effusions. Signer Name: Zana Escalante MD Signed: 12/03/2018 5:58 PM Workstation Name: [id number]
[2018-12-03 18:03] LABS: Red Cell Distribution Width 23.3 % (13.2-15.2)
[2018-12-03 18:06] LABS: Alanine Aminotransferase 18 units/L (7-56); Albumin 3.5 g/dL (3.9-5); BUN/Creatinine Ratio 17; Blood Urea Nitrogen 17 mg/dL (7-17); Hemolysis Index 33
--- NOTE | 2018-12-03 18:19 | History and Physical Report ---
History of Present Illness Chief complaint: I cant breathe, and my heart doctor tole me to come in History of present illness: 73 YO Female with CAD S/P CABG 4 weeks ago, CKD, HTN, GERD, Mitral Valve Disease, DE, CHF, DM presents to ED for evaluation. Pt states that she has experienced pain in her chest over the past 2 days. Pt states that pain is 4- 5/10, substernal, intermittent, worsened with exertion, not relieved with rest, associated with shortness of breath. Pt also acknowledges palpations, dypsnea on exertion, decreased exercise tolerance, Orthopnea/PND. Pt see by her home health nurse, and her yarrow gatherer was notified. EMS was subsequently notified, and upon arrival the patient was found to have respiratory distress. Pt transported to [facility]. Pt seen and evaluated in ED and found to have angina, as well as symptoms consistent with CHF Decompensation. Pt admitted to telemetry. Cardiology consulted in ED. Pt denies fever, chills, NVD, Trauma, BRBPR, Productive cough, skin rash, or recent ill contacts. Prior admission on 11/14/18 reviewed. All listed medication reconciled at time of admission. Past History Past Medical History: acute DE, CAD, diabetes, GERD, heart failure, hypertension, other (Mitral Valve Disease) Past Surgical History: CABG, Other (Cardiac Stent placement, ICD) Social history: , lives with family Family history: diabetes, hypertension Medications and Allergies Allergies Allergy/AdvReac Type Severity Reaction Status Date / Time No Known Allergies Allergy Verified 07/18/16 23:52 Home Medications Medication Instructions Recorded Confirmed Last Taken Type Metoprolol [Lopressor TAB] 25 mg PO Q12HR #60 tablet 07/09/16 12/03/18 12/03/18 Rx Insulin Lispro [Humalog 100 3 units SQ ACHS 09/15/16 12/03/18 12/03/18 History UNITS/ML Kwikpen] Adult Low Dose Aspirin EC 81 mg PO DAILY 08/03/18 12/03/18 12/03/18 History Restasis 0.05% 1 drops OU BID 08/03/18 12/03/18 12/03/18 History Spironolactone 25 mg PO DAILY 08/03/18 12/03/18 12/03/18 History AtorvaSTATin [Lipitor] 40 mg PO QHS 0712/03/18 12/03/18 History Pantoprazole [Protonix TAB] 40 mg PO QDAY 11/10/18 12/03/18 12/03/18 History Furosemide [Lasix TAB] 20 mg PO QDAY #30 tablet 11/13/18 12/03/18 12/03/18 Rx Acetaminophen [Arthritis Pain 650 mg PO Q6H PRN 11/14/18 12/03/18 12/03/18 History Relief] Clopidogrel [Plavix] 75 mg PO QDAY 11/14/18 12/03/18 12/03/18 History Dorzolamide HCl/Timolol Maleat 1 drop OP BID 11/14/18 12/03/18 12/03/18 History [Dorzolamide-Timolol Eye Drops] Insulin Glargine,Hum.rec.anlog 30 units SQ QHS 11/14/18 12/03/18 12/03/18 History [Dorota Samayoa] Review of Systems Constitutional: no weight loss, no weight gain, no fever, no chills Ears, nose, mouth and throat: no ear pain, no ear discharge, no tinnitis, no decreased hearing, no nose pain, no nasal congestion Breasts: no change in shape, no swelling, no mass Cardiovascular: chest pain, orthopnea, palpitations, shortness of breath, dyspnea on exertion, paroxysmal nocturnal dyspnea, leg edema, decreased exercise tolerance Respiratory: no cough, no cough with sputum, no excessive sputum Gastrointestinal: no abdominal pain, no nausea, no vomiting, no diarrhea Genitourinary Female: no pelvic pain, no flank pain, no menorrhagia, no dysuria, no urinary frequency Rectal: no pain, no incontinence, no bleeding Musculoskeletal: no neck stiffness, no neck pain, no shooting arm pain, no arm numbness/tingling Integumentary: no rash, no pruritis, no redness, no sores Neurological: no transient paralysis, no paralysis, no weakness, no parathesias, no numbness, no tingling, no seizures Psychiatric: no memory loss, no change in sleep habits, no sleep disturbances, no insomnia, no hypersomnia, no change in appetite Endocrine: no heat intolerance, no polyphagia, no polydipsia, no polyuria, no nocturia Hematologic/Lymphatic: no easy bruising, no easy bleeding, no lymphadenopathy Allergic/Immunologic: no urticaria, no allergic rhinitis, no persistent infections, no angioedema Exam - Constitutional Vitals: Temp Pulse Resp BP Pulse Ox 98.9 F 83 16 157/77 100 12/03/18 17:29 12/03/18 17:29 12/03/18 17:29 12/03/18 17:29 12/03/18 17:29 General appearance: Present: mild distress, obese - EENT Eyes: Present: PERRL ENT: hearing intact, clear oral mucosa - Neck Neck: Present: supple, normal ROM - Respiratory Respiratory effort: normal Respiratory: bilateral: diminished, rhonchi - Cardiovascular Heart Sounds: Present: S1 & S2. Absent: rub, click - Extremities Extremities: pulses symmetrical Extremity abnormal: edema Peripheral Pulses: within normal limits - Abdominal General gastrointestinal: Present: soft, non-tender, non-distended, normal bowel sounds Female genitourinary: Present: normal - Integumentary Integumentary: Present: clear, warm, dry - Musculoskeletal Musculoskeletal: generalized weakness - Psychiatric Psychiatric: appropriate mood/affect, intact judgment & insight - Neurologic Neurologic: CNII-XII intact, moves all extremities Results - Labs CBC & Chem 7: 12/03/18 17:07 12/03/18 17:07 Labs: Abnormal lab results 12/03/18 12/03/18 12/03/18 Range/Units 17:07 17:07 17:07 MCV 78 L (79-97) fl MCH 25 L (28-32) pg RDW 23.3 H (13.2-15.2) % [place] % (Auto) 8.8 H (0.0-7.3) % APTT < 20.0 L (24.2-36.6) Sec. Chloride 107.9 H (98-107) mmol/L Glucose 203 H (65-100) mg/dL Troponin T 0.119 H* (0.00-0.029) ng/mL NT-Pro-B Natriuret Pep (0-900) pg/mL Albumin 3.5 L (3.9-5) g/dL 12/03/18 Range/Units 17:07 MCV (79-97) fl MCH (28-32) pg RDW (13.2-15.2) % [place] % (Auto) (0.0-7.3) % APTT (24.2-36.6) Sec. Chloride (98-107) mmol/L Glucose (65-100) mg/dL Troponin T (0.00-0.029) ng/mL NT-Pro-B Natriuret Pep 6770 H (0-900) pg/mL Albumin (3.9-5) g/dL Assessment and Plan - Patient Problems (1) Acute on chronic diastolic (congestive) heart failure Current Visit: Yes Status: Acute Plan to address problem: Admit to telemetry, diuresis, chest x ray, pulse oximetry, strict I/O, daily weight, monitor uop q shift, cardiology consulted in ED, thyroid panel, magnesium level, afterload reduction, negative fluid blance. (2) Angina at rest Current Visit: Yes Status: Acute Plan to address problem: Admit to telemetry, serial cardiac enzymes, ekg, morphine, supplemental oxygen, nitro, aspirin, cardiology consulted in ED. (3) Diabetes Current Visit: Yes Status: Acute Plan to address problem: ADA diet, insulin, accu check, hypoglycemia protocol (4) HTN (hypertension) Current Visit: Yes Status: Acute Qualifiers: Hypertension type: essential hypertension Qualified Code(s): I10 - Essential (primary) hypertension Plan to address problem: Monitor bp q shift, continue medical management. (5) GERD (gastroesophageal reflux disease) Current Visit: Yes Status: Acute Qualifiers: Esophagitis presence: without esophagitis Qualified Code(s): K21.9 - Gastro-esophageal reflux disease without esophagitis Plan to address problem: PPI therapy, supportive care (6) DVT prophylaxis Current Visit: Yes Status: Acute Plan to address problem: SCD to BLE while in bed, supportive care, Prophylactic anticoagulation
[2018-12-03 18:23] LABS: Chol/HDL Ratio 3.21 %; HDL Cholesterol 37 mg/dL (40-59); LDL Cholesterol,Direct 66 mg/dL (50-130)
[2018-12-03] MEDS ORDERED: ZOFRAN IV PRN (18:34)
[2018-12-03] MEDS ORDERED: PERCOCET 5/325 PO PRN (18:34)
[2018-12-03] MEDS ORDERED: SODIUM CHLORIDE FLUSH SYRINGE 10 ML IV PRN (18:34)
[2018-12-03] MEDS ORDERED: TYLENOL PO PRN (18:34)
[2018-12-03] MEDS ORDERED: MORPHINE IV PRN (18:34)
[2018-12-03] MEDS ORDERED: PROVENTIL IH PRN (18:34)
[2018-12-03] MEDS ORDERED: ACETAMINOPHEN 650 MG PO PRN (18:37)
[2018-12-03] MEDS ORDERED: ULTRAM PO PRN (18:37)
[2018-12-03] MEDS ORDERED: D50W (25GM) Syringe IV PRN (18:39)
[2018-12-03 19:54] LABS: Bilirubin,Urine NEG (Negative); Blood,Urine SM (Negative); Color,Urine Yellow (Yellow); Hyaline Casts,Urine 6 /LPF; Mucus,Urine FEW /HPF; Urobilinogen,Urine < 2.0 mg/dL (<2.0); WBC,Urine < 1.0 /HPF (0.0-6.0)
[2018-12-03 20:00] LABS: Protein,Urine >500 mg/dL (Negative)
[2018-12-03] MEDS: ASPIRIN PO SCH (20:03)
[2018-12-03] MEDS ORDERED: ASPIRIN ONE (20:05)
[2018-12-03] MEDS ORDERED: BUMEX PO SCH (22:00)
[2018-12-03] MEDS: LOVENOX SUB-Q SCH (22:21)
[2018-12-03] MEDS: LOPRESSOR PO SCH (22:21)
[2018-12-03 22:24] LABS: Free T4 (Free Thyroxine) 1.11 ng/dL (0.76-1.46)
[2018-12-03] MEDS: SODIUM CHLORIDE FLUSH SYRINGE 10 ML IV SCH (22:27)
[2018-12-03] MEDS: NON-FORMULARY (Dorzolamide Hcl/Timolol Maleat [Dorzolamide-Timolol Eye Drops] 1 DROP) OP SCH (22:45)
[2018-12-03] MEDS: RESTASIS 0.05% OP SCH (22:45)
[2018-12-04] MEDS: HumaLOG SUB-Q SCH ×4 (00:22→18:00)
[2018-12-04 06:06] LABS: Basophils # (Auto) 0.1 K/mm3 (0.0-0.1); Basophils % (Auto) 0.9 % (0.0-1.8); Eosinophils # (Auto) 0.1 K/mm3 (0.0-0.4); Hematocrit 30.2 % (30.3-42.9); Lymphocytes # (Auto) 1.1 K/mm3 (1.2-5.4); Lymphocytes % (Auto) 18.1 % (13.4-35.0); Mean Corpuscular HGB Conc 33 % (30-34); Mean Corpuscular Volume 77 fl (79-97); Monocytes # (Auto) 0.6 K/mm3 (0.0-0.8); Platelet Count 196 K/mm3 (140-440); Red Blood Count 3.91 M/mm3 (3.65-5.03)
[2018-12-04 06:21] LABS: Red Cell Distribution Width 22.9 % (13.2-15.2)
[2018-12-04] MEDS: LASIX IV SCH ×2 (06:27→17:55)
[2018-12-04 06:48] LABS: Albumin 3.5 g/dL (3.9-5); BUN/Creatinine Ratio 18; Blood Urea Nitrogen 18 mg/dL (7-17); Calcium 8.7 mg/dL (8.4-10.2); Hemolysis Index 258
[2018-12-04 07:45] LABS: Alanine Aminotransferase TNR units/L (7-56)
[2018-12-04] MEDS: PLAVIX PO SCH (09:57)
[2018-12-04] MEDS: ALDACTONE PO SCH (09:57)
[2018-12-04] MEDS: LOPRESSOR PO SCH ×2 (09:57→22:42)
[2018-12-04] MEDS: ASPIRIN PO SCH (09:58)
[2018-12-04] MEDS: MUCINEX ER PO SCH (09:58)
[2018-12-04] MEDS: SODIUM CHLORIDE FLUSH SYRINGE 10 ML IV SCH ×2 (09:58→22:42)
[2018-12-04] MEDS: PROTONIX PO SCH (09:58)
[2018-12-04] MEDS: NON-FORMULARY (Dorzolamide Hcl/Timolol Maleat [Dorzolamide-Timolol Eye Drops] 1 DROP) OP SCH ×2 (09:58→22:42)
[2018-12-04] MEDS: RESTASIS 0.05% OP SCH ×2 (09:58→22:42)
[2018-12-04] MEDS ORDERED: NON-FORMULARY (Adult Low Dose Aspirin Ec 81 MG) PO SCH (10:00)
[2018-12-04] MEDS ORDERED: NON-FORMULARY (Spironolactone 25 MG) PO SCH (10:00)
--- NOTE | 2018-12-04 10:01 | Consultation ---
History of Present Illness Consult date: 12/04/18 Consult reason: chest pain History of present illness: 73 year old female presenting with chest pain according to her family. Patient is sleepy this morning and unable to answer questions. She is moving all 4 extremities though. Past History Past Medical History: acute [place], CAD, diabetes, GERD, heart failure, hypertension, other (Mitral Valve Disease) Past Surgical History: CABG, Other (Cardiac Stent placement, ICD) Social history: , lives with family Family history: diabetes, hypertension Medications and Allergies Allergies Allergy/AdvReac Type Severity Reaction Status Date / Time No Known Allergies Allergy Verified 07/18/16 23:52 Home Medications Medication Instructions Recorded Confirmed Last Taken Type Metoprolol [Lopressor TAB] 25 mg PO Q12HR #60 tablet 07/09/16 12/03/18 12/03/18 Rx Insulin Lispro [Humalog 100 3 units SQ ACHS 09/15/16 12/03/18 12/03/18 History UNITS/ML Kwikpen] Adult Low Dose Aspirin EC 81 mg PO DAILY 08/03/18 12/03/18 12/03/18 History Restasis 0.05% 1 drops OU BID 08/03/18 12/03/18 12/03/18 History Spironolactone 25 mg PO DAILY 08/03/18 12/03/18 12/03/18 History AtorvaSTATin [Lipitor] 40 mg PO QHS 11/10/18 12/03/18 12/03/18 History Pantoprazole [Protonix TAB] 40 mg PO QDAY 11/10/18 12/03/18 12/03/18 History Furosemide [Lasix TAB] 20 mg PO QDAY #30 tablet 11/13/18 12/03/18 12/03/18 Rx Acetaminophen [Arthritis Pain 650 mg PO Q6H PRN 11/14/18 12/03/18 12/03/18 History Relief] Clopidogrel [Plavix] 75 mg PO QDAY 11/14/18 12/03/18 12/03/18 History Dorzolamide HCl/Timolol Maleat 1 drop OP BID 11/14/18 12/03/18 12/03/18 History [Dorzolamide-Timolol Eye Drops] Insulin Glargine,Hum.rec.anlog 30 units SQ QHS 11/14/18 12/03/18 12/03/18 History [Dorota [place]] Active Meds: Active Medications Acetaminophen (Tylenol) 650 mg PO Q4H PRN PRN Reason: Pain MILD(1-3)/Fever >100.5/OCONNELL Albuterol (Proventil) 2.5 mg IH Q4HRT PRN PRN Reason: Shortness Of Breath Aspirin (Aspirin) 325 mg PO QDAY [facility] Last Admin: 12/03/18 20:03 Dose: 325 mg Documented by: Atorvastatin Calcium (Lipitor) 40 mg PO QHS [facility] Last Admin: 12/03/18 22:27 Dose: 40 mg Documented by: Clopidogrel Bisulfate (Plavix) 75 mg PO QDAY [facility] Dextrose (D50w (25gm) Syringe) 50 ml IV PRN PRN PRN Reason: Hypoglycemia Enoxaparin Sodium (Lovenox) 40 mg SUB-Q QDAY@2200 [facility] Last Admin: 12/03/18 22:21 Dose: 40 mg Documented by: Furosemide (Lasix) 20 mg IV 0600,1800 [facility] Last Admin: 12/04/18 06:27 Dose: 20 mg Documented by: Guaifenesin (Mucinex Er) 600 mg PO DAILY [facility] Insulin Human Lispro (Humalog) 0 unit SUB-Q Q6HR [facility]; Protocol Last Admin: 12/04/18 06:28 Dose: Not Given Documented by: Metoprolol Tartrate (Lopressor) 25 mg PO Q12HR [facility] Last Admin: 12/03/18 22:21 Dose: 25 mg Documented by: Miscellaneous Medication (Dorzolamide Hcl/Timolol Maleat [Dorzolamide-Timolol Eye Drops]) 1 drop OP BID [facility] Last Admin: 12/03/18 22:45 Dose: Not Given Documented by: Miscellaneous Medication (Restasis 0.05%) 1 drops OP BID [facility] Last Admin: 12/03/18 22:45 Dose: Not Given Documented by: Morphine Sulfate (Morphine) 2 mg IV Q4H PRN PRN Reason: Pain, Moderate (4-6) Ondansetron HCl (Zofran) 4 mg IV Q8H PRN PRN Reason: Nausea And Vomiting Oxycodone/Acetaminophen (Percocet 5/325) 1 tab PO Q6H PRN PRN Reason: Pain, Moderate (4-6) Pantoprazole Sodium (Protonix) 40 mg PO QDAY [facility] Sodium Chloride (Sodium Chloride Flush Syringe 10 Ml) 10 ml IV BID [facility] Last Admin: 12/03/18 22:27 Dose: 10 ml Documented by: Sodium Chloride (Sodium Chloride Flush Syringe 10 Ml) 10 ml IV PRN PRN PRN Reason: LINE FLUSH Spironolactone (Aldactone) 25 mg PO QDAY [facility] Review of Systems ROS unobtainable: due to mental status Physical Examination Vital Signs Pulse Resp Pulse Ox 90 8 L 100 12/03/18 17:07 12/03/18 17:07 12/03/18 17:07 General appearance: no acute distress Neck: Positive: neck supple Cardiac: Positive: Reg Rate and Rhythm Lungs: Positive: Decreased Breath Sounds Abdomen: Positive: Soft Extremities: Present: +1 Edema Results 12/04/18 05:30 12/04/18 05:30 Cardiac Enzymes 12/03/18 12/03/18 12/03/18 Range/Units 17:05 17:07 17:07 WBC 7.0 (4.5-11.0) K/mm3 RBC 4.00 (3.65-5.03) M/mm3 Hgb 10.2 (10.1-14.3) gm/dl Hct 31.3 (30.3-42.9) % MCV 78 L (79-97) fl MCH 25 L (28-32) pg MCHC 33 (30-34) % RDW 23.3 H (13.2-15.2) % Plt Count 197 (140-440) K/mm3 Lymph % (Auto) 19.8 (13.4-35.0) % [place] % (Auto) 8.8 H (0.0-7.3) % Eos % (Auto) 0.9 (0.0-4.3) % Baso % (Auto) 1.0 (0.0-1.8) % Lymph # 1.4 (1.2-5.4) K/mm3 [place] # 0.6 (0.0-0.8) K/mm3 Eos # 0.1 (0.0-0.4) K/mm3 Baso # 0.1 (0.0-0.1) K/mm3 Seg Neutrophils % 69.5 (40.0-70.0) % Seg Neutrophils # 4.9 (1.8-7.7) K/mm3 PT 12.3 (12.2-14.9) Sec. INR 0.94 (0.87-1.13) APTT < 20.0 L (24.2-36.6) Sec. Sodium (137-145) mmol/L Potassium (3.6-5.0) mmol/L Chloride (98-107) mmol/L Carbon Dioxide (22-30) mmol/L Anion Gap mmol/L BUN (7-17) mg/dL Creatinine (0.7-1.2) mg/dL Estimated GFR ml/min BUN/Creatinine Ratio % Glucose (65-100) mg/dL POC Glucose (70-105) Hemoglobin A1c (4-6) % Calcium (8.4-10.2) mg/dL Magnesium (1.7-2.3) mg/dL Total Bilirubin (0.1-1.2) mg/dL AST (5-40) units/L ALT (7-56) units/L Alkaline Phosphatase (35-129) units/L Troponin T (0.00-0.029) ng/mL NT-Pro-B Natriuret Pep (0-900) pg/mL Total Protein (6.3-8.2) g/dL Albumin (3.9-5) g/dL Albumin/Globulin Ratio % Triglycerides (2-149) mg/dL Cholesterol (50-199) mg/dL LDL Cholesterol Direct (50-130) mg/dL HDL Cholesterol (40-59) mg/dL Cholesterol/HDL Ratio % TSH (0.270-4.200) mlU/mL Free T4 (0.76-1.46) ng/dL Urine Color Yellow (Yellow) Urine Turbidity Clear (Clear) Urine pH 5.0 (5.0-7.0) Ur Specific [place] 1.009 (1.003-1.030) Urine Protein >500 (Negative) mg/dL Urine Glucose (UA) Neg (Negative) mg/dL Urine Ketones Neg (Negative) mg/dL Urine Blood Sm (Negative) Urine Nitrite Neg (Negative) Urine Bilirubin Neg (Negative) Urine Urobilinogen < 2.0 (<2.0) mg/dL Ur Leukocyte Esterase Neg (Negative) Urine WBC (Auto) < 1.0 (0.0-6.0) /HPF Urine RBC (Auto) 1.0 (0.0-6.0) /HPF U Epithel Cells (Auto) 2.0 (0-13.0) /HPF Hyaline Casts 6 /LPF Urine Mucus Few /HPF 12/03/18 12/03/18 12/03/18 Range/Units 17:07 17:07 18:39 WBC (4.5-11.0) K/mm3 RBC (3.65-5.03) M/mm3 Hgb (10.1-14.3) gm/dl Hct (30.3-42.9) % MCV (79-97) fl MCH (28-32) pg MCHC (30-34) % RDW (13.2-15.2) % Plt Count (140-440) K/mm3 Lymph % (Auto) (13.4-35.0) % [place] % (Auto) (0.0-7.3) % Eos % (Auto) (0.0-4.3) % Baso % (Auto) (0.0-1.8) % Lymph # (1.2-5.4) K/mm3 [place] # (0.0-0.8) K/mm3 Eos # (0.0-0.4) K/mm3 Baso # (0.0-0.1) K/mm3 Seg Neutrophils % (40.0-70.0) % Seg Neutrophils # (1.8-7.7) K/mm3 PT (12.2-14.9) Sec. INR (0.87-1.13) APTT (24.2-36.6) Sec. Sodium 143 (137-145) mmol/L Potassium 4.2 (3.6-5.0) mmol/L Chloride 107.9 H (98-107) mmol/L Carbon Dioxide 26 (22-30) mmol/L Anion Gap 13 mmol/L BUN 17 (7-17) mg/dL Creatinine 1.0 (0.7-1.2) mg/dL Estimated GFR > 60 ml/min BUN/Creatinine Ratio 17 % Glucose 203 H (65-100) mg/dL POC Glucose (70-105) Hemoglobin A1c 6.7 H (4-6) % Calcium 9.0 (8.4-10.2) mg/dL Magnesium (1.7-2.3) mg/dL Total Bilirubin 0.40 (0.1-1.2) mg/dL AST 25 (5-40) units/L ALT 18 (7-56) units/L Alkaline Phosphatase 113 (35-129) units/L Troponin T 0.119 H* (0.00-0.029) ng/mL NT-Pro-B Natriuret Pep 6770 H (0-900) pg/mL Total Protein 7.0 (6.3-8.2) g/dL Albumin 3.5 L (3.9-5) g/dL Albumin/Globulin Ratio 1.0 % Triglycerides 115 (2-149) mg/dL Cholesterol 119 (50-199) mg/dL LDL Cholesterol Direct 66 (50-130) mg/dL HDL Cholesterol 37 L (40-59) mg/dL Cholesterol/HDL Ratio 3.21 % TSH (0.270-4.200) mlU/mL Free T4 (0.76-1.46) ng/dL Urine Color (Yellow) Urine Turbidity (Clear) Urine pH (5.0-7.0) Ur Specific [place] (1.003-1.030) Urine Protein (Negative) mg/dL Urine Glucose (UA) (Negative) mg/dL Urine Ketones (Negative) mg/dL Urine Blood (Negative) Urine Nitrite (Negative) Urine Bilirubin (Negative) Urine Urobilinogen (<2.0) mg/dL Ur Leukocyte Esterase (Negative) Urine WBC (Auto) (0.0-6.0) /HPF Urine RBC (Auto) (0.0-6.0) /HPF U Epithel Cells (Auto) (0-13.0) /HPF Hyaline Casts /LPF Urine Mucus /HPF 12/03/18 12/03/18 12/04/18 Range/Units 21:39 21:39 00:25 WBC (4.5-11.0) K/mm3 RBC (3.65-5.03) M/mm3 Hgb (10.1-14.3) gm/dl Hct (30.3-42.9) % MCV (79-97) fl MCH (28-32) pg MCHC (30-34) % RDW (13.2-15.2) % Plt Count (140-440) K/mm3 Lymph % (Auto) (13.4-35.0) % [place] % (Auto) (0.0-7.3) % Eos % (Auto) (0.0-4.3) % Baso % (Auto) (0.0-1.8) % Lymph # (1.2-5.4) K/mm3 [place] # (0.0-0.8) K/mm3 Eos # (0.0-0.4) K/mm3 Baso # (0.0-0.1) K/mm3 Seg Neutrophils % (40.0-70.0) % Seg Neutrophils # (1.8-7.7) K/mm3 PT (12.2-14.9) Sec. INR (0.87-1.13) APTT (24.2-36.6) Sec. Sodium (137-145) mmol/L Potassium (3.6-5.0) mmol/L Chloride (98-107) mmol/L Carbon Dioxide (22-30) mmol/L Anion Gap mmol/L BUN (7-17) mg/dL Creatinine (0.7-1.2) mg/dL Estimated GFR ml/min BUN/Creatinine Ratio % Glucose (65-100) mg/dL POC Glucose 193 H (70-105) Hemoglobin A1c (4-6) % Calcium (8.4-10.2) mg/dL Magnesium 1.90 (1.7-2.3) mg/dL Total Bilirubin (0.1-1.2) mg/dL AST (5-40) units/L ALT (7-56) units/L Alkaline Phosphatase (35-129) units/L Troponin T (0.00-0.029) ng/mL NT-Pro-B Natriuret Pep (0-900) pg/mL Total Protein (6.3-8.2) g/dL Albumin (3.9-5) g/dL Albumin/Globulin Ratio % Triglycerides (2-149) mg/dL Cholesterol (50-199) mg/dL LDL Cholesterol Direct (50-130) mg/dL HDL Cholesterol (40-59) mg/dL Cholesterol/HDL Ratio % TSH 1.810 (0.270-4.200) mlU/mL Free T4 1.11 (0.76-1.46) ng/dL Urine Color (Yellow) Urine Turbidity (Clear) Urine pH (5.0-7.0) Ur Specific [place] (1.003-1.030) Urine Protein (Negative) mg/dL Urine Glucose (UA) (Negative) mg/dL Urine Ketones (Negative) mg/dL Urine Blood (Negative) Urine Nitrite (Negative) Urine Bilirubin (Negative) Urine Urobilinogen (<2.0) mg/dL Ur Leukocyte Esterase (Negative) Urine WBC (Auto) (0.0-6.0) /HPF Urine RBC (Auto) (0.0-6.0) /HPF U Epithel Cells (Auto) (0-13.0) /HPF Hyaline Casts /LPF Urine Mucus /HPF 12/04/18 12/04/18 12/04/18 Range/Units 05:30 05:30 06:32 WBC 6.0 (4.5-11.0) K/mm3 RBC 3.91 (3.65-5.03) M/mm3 Hgb 10.0 L (10.1-14.3) gm/dl Hct 30.2 L (30.3-42.9) % MCV 77 L (79-97) fl MCH 26 L (28-32) pg MCHC 33 (30-34) % RDW 22.9 H (13.2-15.2) % Plt Count 196 (140-440) K/mm3 Lymph % (Auto) 18.1 (13.4-35.0) % [place] % (Auto) 10.0 H (0.0-7.3) % Eos % (Auto) 2.0 (0.0-4.3) % Baso % (Auto) 0.9 (0.0-1.8) % Lymph # 1.1 L (1.2-5.4) K/mm3 [place] # 0.6 (0.0-0.8) K/mm3 Eos # 0.1 (0.0-0.4) K/mm3 Baso # 0.1 (0.0-0.1) K/mm3 Seg Neutrophils % 69.0 (40.0-70.0) % Seg Neutrophils # 4.2 (1.8-7.7) K/mm3 PT (12.2-14.9) Sec. INR (0.87-1.13) APTT (24.2-36.6) Sec. Sodium 142 (137-145) mmol/L Potassium TNR (3.6-5.0) mmol/L Chloride 110.0 H (98-107) mmol/L Carbon Dioxide 25 (22-30) mmol/L Anion Gap 15 mmol/L BUN 18 H (7-17) mg/dL Creatinine 1.0 (0.7-1.2) mg/dL Estimated GFR > 60 ml/min BUN/Creatinine Ratio 18 % Glucose 109 H (65-100) mg/dL POC Glucose 142 H (70-105) Hemoglobin A1c (4-6) % Calcium 8.7 (8.4-10.2) mg/dL Magnesium (1.7-2.3) mg/dL Total Bilirubin 0.40 (0.1-1.2) mg/dL AST TNR (5-40) units/L ALT TNR (7-56) units/L Alkaline Phosphatase TNR (35-129) units/L Troponin T (0.00-0.029) ng/mL NT-Pro-B Natriuret Pep (0-900) pg/mL Total Protein 6.9 (6.3-8.2) g/dL Albumin 3.5 L (3.9-5) g/dL Albumin/Globulin Ratio 1.0 % Triglycerides (2-149) mg/dL Cholesterol (50-199) mg/dL LDL Cholesterol Direct (50-130) mg/dL HDL Cholesterol (40-59) mg/dL Cholesterol/HDL Ratio % TSH (0.270-4.200) mlU/mL Free T4 (0.76-1.46) ng/dL Urine Color (Yellow) Urine Turbidity (Clear) Urine pH (5.0-7.0) Ur Specific [place] (1.003-1.030) Urine Protein (Negative) mg/dL Urine Glucose (UA) (Negative) mg/dL Urine Ketones (Negative) mg/dL Urine Blood (Negative) Urine Nitrite (Negative) Urine Bilirubin (Negative) Urine Urobilinogen (<2.0) mg/dL Ur Leukocyte Esterase (Negative) Urine WBC (Auto) (0.0-6.0) /HPF Urine RBC (Auto) (0.0-6.0) /HPF U Epithel Cells (Auto) (0-13.0) /HPF Hyaline Casts /LPF Urine Mucus /HPF Coagulation 07/ Range/Units 17:07 PT 12.3 (12.2-14.9) Sec. INR 0.94 (0.87-1.13) APTT < 20.0 L (24.2-36.6) Sec. Lipids 12/03/18 Range/Units 17:07 Triglycerides 115 (2-149) mg/dL Cholesterol 119 (50-199) mg/dL HDL Cholesterol 37 L (40-59) mg/dL Cholesterol/HDL Ratio 3.21 % CBC 12/03/18 12/04/18 Range/Units 17:07 05:30 WBC 7.0 6.0 (4.5-11.0) K/mm3 RBC 4.00 3.91 (3.65-5.03) M/mm3 Hgb 10.2 10.0 L (10.1-14.3) gm/dl Hct 31.3 30.2 L (30.3-42.9) % Plt Count 197 196 (140-440) K/mm3 Lymph # 1.4 1.1 L (1.2-5.4) K/mm3 [place] # 0.6 0.6 (0.0-0.8) K/mm3 Eos # 0.1 0.1 (0.0-0.4) K/mm3 Baso # 0.1 0.1 (0.0-0.1) K/mm3 Comprehensive Metabolic Panel 12/03/18 12/04/18 Range/Units 17:07 05:30 Sodium 143 142 (137-145) mmol/L Potassium 4.2 TNR (3.6-5.0) mmol/L Chloride 107.9 H 110.0 H (98-107) mmol/L Carbon Dioxide 26 25 (22-30) mmol/L BUN 17 18 H (7-17) mg/dL Creatinine 1.0 1.0 (0.7-1.2) mg/dL Glucose 203 H 109 H (65-100) mg/dL Calcium 9.0 8.7 (8.4-10.2) mg/dL AST 25 TNR (5-40) units/L ALT 18 TNR (7-56) units/L Alkaline Phosphatase 113 TNR (35-129) units/L Total Protein 7.0 6.9 (6.3-8.2) g/dL Albumin 3.5 L 3.5 L (3.9-5) g/dL Assessment and Plan 1. Chronic Kidney Disease Required transient HD in the past 2. Atrioventricular Block, Second Degree s/p PPM 3. Essential (primary) Hypertension 4. Type 2 Diabetes Mellitus Without Complications 5. Nonrheumatic Mitral (valve) Stenosis s/p MV replacement (tissue valve) and TV repair (ring) October 12, 2018 Echo 11/09/2018: LVEF 31%, moderate RVE, sevee LAE, MY mean gradient 6.6 mm Hg, mild to moderate TR, moderately elevated RVSP 6. Atherosclerotic Heart Disease Of [place] Coronary Artery History of stent stenosis of CX s/p CABG x 2 October 12, 2018 7. Carotid artery stenosis 50-60% right and left ICA 08/2018 8. Chronically elevated troponin - non-specific 9. Chest pain - reason for admission ECG showing sequential AV pacing - no changes from previous CXR showing patchy lung consolidation 1. Altered mental status ? etiology Glucose this morning was 109 Recommendations: Continue current medical management Obtain CT chest without contrast to evaluate AMS Obtain repeat echo to evaluate MR prosthesis and TV repair Obtain Blood cultures Will continue to follow
--- NOTE | 2018-12-04 10:09 | Progress Note ---
Assessment and Plan Assessment and plan: 73 YO Female with CAD S/P CABG 4 weeks ago, CKD, HTN, GERD, Mitral Valve Disease, [place], CHF, DM presents to ED for evaluation. Pt states that she has experienced pain in her chest over the past 2 days. Pt states that pain is 4- 5/10, substernal, intermittent, worsened with exertion, not relieved with rest, associated with shortness of breath. Pt also acknowledges palpations, dypsnea on exertion, decreased exercise tolerance, Orthopnea/PND. Pt see by her home health nurse, and her talent acquisition consultant was notified. EMS was subsequently notified, and upon arrival the patient was found to have respiratory distress. Pt transported to [facility]. Pt seen and evaluated in ED and found to have angina, as well as symptom s consistent with CHF Decompensation. Pt admitted to telemetry. Cardiology consulted in ED. Pt denies fever, chills, NVD, Trauma, BRBPR, Productive cough, skin rash, or recent ill contacts. Prior admission on 11/14/18 reviewed. All listed medication reconciled at time of admission. cardiac hx s/p MV replacement (tissue valve) and TV repair (ring) October 12, 2018 Echo 11/09/2018: LVEF 31%, moderate RVE, sevee LAE, MY mean gradient 6.6 mm Hg, mild to moderate TR, moderately elevated RVSP Acute Metabolic Encephalopathy- Unknown etiology Acute on chronic diastolic Congestive heart failure Angina at rest s/p Recent PCI and valvular surgery ?pleuritic in nature DM TYPE 2 with Hyperglycemia Patchy consolidation in the chest ?PNA HTN GERD CKD 3- PRIOR HD Requirement AV BLOCK S/P PPM Nonrheumatic Mitral (valve) Stenosis Atherosclerotic Heart Disease Of [place] Coronary Artery History of stent stenosis of CX s/p CABG x 2 October 12, 2018 Carotid artery stenosis 50-60% right and left ICA 08/2018 Chronically elevated troponin - non-specific Plan Supportive care continue CHF protocol management, i/o, diuresis, etc start emperic ABX OBTAIN ABG CT HEAD ORDERED BLOOD CULTURES Echo to evaluate recent valve repair D/W CARDIOLOGY ADDITIONAL 30MINS OF CARE PROVIDED. History Interval history: Patient seen and examined, lethargic, spouse at bedside, patient answers but not opening his eyes Hospitalist Physical - Constitutional Vitals: Temp Pulse Resp BP Pulse Ox 97.4 F L 91 H 18 134/74 100 12/04/18 07:44 12/04/18 09:57 12/04/18 07:44 12/04/18 09:57 12/04/18 07:44 General appearance: Present: well-nourished, other (lethargic) - EENT Eyes: Present: PERRL, EOM intact ENT: hearing intact, clear oral mucosa - Neck Neck: Present: normal ROM - Respiratory Respiratory effort: normal - Cardiovascular Rhythm: regular Heart Sounds: Present: S1 & S2, systolic murmur - Extremities Extremities: no ischemia, pulses intact, pulses symmetrical Extremity abnormal: edema (1+) Peripheral Pulses: within normal limits - Abdominal General gastrointestinal: soft, non-tender, non-distended, normal bowel sounds - Integumentary Integumentary: Present: clear, warm, dry - Psychiatric Psychiatric: other (not following commands, answers some qestions) - Neurologic Neurologic: CNII-XII intact, other (altered sensorium) Results - Labs CBC & Chem 7: 12/04/18 05:30 12/04/18 10:31 Labs: Laboratory Last Values WBC 6.0 K/mm3 (4.5-11.0) 12/04/18 05:30 RBC 3.91 M/mm3 (3.65-5.03) 12/04/18 05:30 Hgb 10.0 gm/dl (10.1-14.3) L 12/04/18 05:30 Hct 30.2 % (30.3-42.9) L 12/04/18 05:30 MCV 77 fl (79-97) L 12/04/18 05:30 MCH 26 pg (28-32) L 12/04/18 05:30 MCHC 33 % (30-34) 12/04/18 05:30 RDW 22.9 % (13.2-15.2) H 12/04/18 05:30 Plt Count 196 K/mm3 (140-440) 12/04/18 05:30 Lymph % (Auto) 18.1 % (13.4-35.0) 12/04/18 05:30 [place] % (Auto) 10.0 % (0.0-7.3) H 12/04/18 05:30 Eos % (Auto) 2.0 % (0.0-4.3) 12/04/18 05:30 Baso % (Auto) 0.9 % (0.0-1.8) 12/04/18 05:30 Lymph # 1.1 K/mm3 (1.2-5.4) L 12/04/18 05:30 [place] # 0.6 K/mm3 (0.0-0.8) 12/04/18 05:30 Eos # 0.1 K/mm3 (0.0-0.4) 12/04/18 05:30 Baso # 0.1 K/mm3 (0.0-0.1) 12/04/18 05:30 Seg Neutrophils % 69.0 % (40.0-70.0) 12/04/18 05:30 Seg Neutrophils # 4.2 K/mm3 (1.8-7.7) 12/04/18 05:30 PT 12.3 Sec. (12.2-14.9) 12/03/18 17:07 INR 0.94 (0.87-1.13) 12/03/18 17:07 APTT < 20.0 Sec. (24.2-36.6) L 12/03/18 17:07 Sodium 142 mmol/L (137-145) 12/04/18 05:30 Potassium TNR 12/04/18 05:30 Chloride 110.0 mmol/L (98-107) H 12/04/18 05:30 Carbon Dioxide 25 mmol/L (22-30) 12/04/18 05:30 15 mmol/L 12/04/18 05:30 BUN 18 mg/dL (7-17) H 12/04/18 05:30 1.0 mg/dL (0.7-1.2) 12/04/18 05:30 Estimated GFR > 60 ml/min 12/04/18 05:30 18 % 12/04/18 05:30 Glucose 109 mg/dL (65-100) H 12/04/18 05:30 POC Glucose 142 (70-105) H 12/04/18 06:32 6.7 % (4-6) H 12/03/18 18:39 Calcium 8.7 mg/dL (8.4-10.2) 12/04/18 05:30 Magnesium 1.90 mg/dL (1.7-2.3) 12/03/18 21:39 0.40 mg/dL (0.1-1.2) 12/04/18 05:30 AST TNR 12/04/18 05:30 ALT TNR 12/04/18 05:30 TNR 12/04/18 05:30 0.119 ng/mL (0.00-0.029) H* 12/03/18 17:07 NT-Pro-B Natriuret Pep 6770 pg/mL (0-900) H 12/03/18 17:07 6.9 g/dL (6.3-8.2) 12/04/18 05:30 3.5 g/dL (3.9-5) L 12/04/18 05:30 1.0 % 12/04/18 05:30 Triglycerides 115 mg/dL (2-149) 12/03/18 17:07 Cholesterol 119 mg/dL (50-199) 12/03/18 17:07 66 mg/dL (50-130) 12/03/18 17:07 37 mg/dL (40-59) L 12/03/18 17:07 3.21 % 12/03/18 17:07 TSH 1.810 mlU/mL (0.270-4.200) 12/03/18 21:39 Free T4 1.11 ng/dL (0.76-1.46) 12/03/18 21:39 Yellow (Yellow) 12/03/18 17:05 Clear (Clear) 12/03/18 17:05 5.0 (5.0-7.0) 12/03/18 17:05 Ur Specific [place] 1.009 (1.003-1.030) 12/03/18 17:05 >500 mg/dL (Negative) 12/03/18 17:05 Neg mg/dL (Negative) 12/03/18 17:05 Neg mg/dL (Negative) 12/03/18 17:05 Sm (Negative) 12/03/18 17:05 Neg (Negative) 12/03/18 17:05 Neg (Negative) 12/03/18 17:05 < 2.0 mg/dL (<2.0) 12/03/18 17:05 Ur Leukocyte Esterase Neg (Negative) 12/03/18 17:05 < 1.0 /HPF (0.0-6.0) 12/03/18 17:05 1.0 /HPF (0.0-6.0) 12/03/18 17:05 U Epithel Cells (Auto) 2.0 /HPF (0-13.0) 12/03/18 17:05 Hyaline Casts 6 /LPF 12/03/18 17:05 Few /HPF 12/03/18 17:05 Active Medications - Current Medications Current Medications: Generic Name Dose Route Start Last Admin Trade Name Freemiliana PRN Reason Stop Dose Admin Acetaminophen 650 mg 12/03/18 18:34 Tylenol PO Q4H PRN Pain MILD(1-3)/Fever >100.5/OCONNELL Albuterol 2.5 mg 12/03/18 18:34 Proventil IH Q4HRT PRN Shortness Of Breath Aspirin 325 mg 12/03/18 20:00 12/04/18 09:58 Aspirin PO 325 mg QDAY MABEL Administration Atorvastatin Calcium 40 mg 12/03/18 22:00 12/03/18 22:27 Lipitor PO 40 mg QHS MABEL Administration Clopidogrel Bisulfate 75 mg 12/04/18 10:00 12/04/18 09:57 Plavix PO 75 mg QDAY MABEL Administration Dextrose 50 ml 12/03/18 18:39 D50w (25gm) Syringe IV PRN PRN Hypoglycemia Enoxaparin Sodium 40 mg 12/03/18 22:00 12/03/18 22:21 Lovenox SUB-Q 40 mg QDAY@2200 MABEL Administration Furosemide 20 mg 12/04/18 06:00 12/04/18 06:27 Lasix IV 20 mg 0600,1800 MABEL Administration Guaifenesin 600 mg 12/04/18 10:00 12/04/18 09:58 Mucinex Er PO 600 mg DAILY MABEL Administration Insulin Human Lispro 0 unit 12/04/18 00:00 12/04/18 06:28 Humalog SUB-Q Not Given [facility]6HR [facility] Protocol Metoprolol Tartrate 25 mg 12/03/18 22:00 12/04/18 09:57 Lopressor PO 25 mg Q12HR MABEL Administration Miscellaneous Medication 1 drop 12/03/18 22:00 12/04/18 09:58 Dorzolamide Hcl/Timolol Maleat [Dorzolamide-Timolol Eye Drops] OP 1 drop BID MABEL Administration Miscellaneous Medication 1 drops 12/03/18 22:00 12/04/18 09:58 Restasis 0.05% OP 1 drops BID MABEL Administration Morphine Sulfate 2 mg 12/03/18 18:34 Morphine IV Q4H PRN Pain, Moderate (4-6) Ondansetron HCl 4 mg 12/03/18 18:34 Zofran IV Q8H PRN Nausea And Vomiting Oxycodone/Acetaminophen 1 tab 12/03/18 18:34 Percocet 5/325 PO Q6H PRN Pain, Moderate (4-6) Pantoprazole Sodium 40 mg 12/04/18 10:00 12/04/18 09:58 Protonix PO 40 mg QDAY MABEL Administration Sodium Chloride 10 ml 12/03/18 22:00 12/04/18 09:58 Sodium Chloride Flush Syringe 10 Ml IV 10 ml BID MABEL Administration Sodium Chloride 10 ml 12/03/18 18:34 Sodium Chloride Flush Syringe 10 Ml IV PRN PRN LINE FLUSH Spironolactone 25 mg 12/04/18 10:00 12/04/18 09:57 Aldactone PO 25 mg QDAY MABEL Administration
[2018-12-04] MEDS ORDERED: VANCOMYCIN PHARMACY TO DOSE IV SCH (11:00)
[2018-12-04] MEDS ORDERED: VANCOMYCIN 1,750 MG in NACL 0.9% 500 ML 500 ML IV ONE (11:30)
--- NOTE | 2018-12-04 11:56 | Cat Scan Report ---
CT head/brain wo con INDICATION / CLINICAL INFORMATION: 73 years Female; MAIN: [facility]--PT IS UNABLE TO HOLD STILL NO OLD CT HDS HERE. TECHNIQUE: Routine CT head without contrast. All CT scans at this location are performed using CT dos e reduction for ALARA by means of automated exposure control. COMPARISON: None. FINDINGS: BRAIN / INTRACRANIAL CONTENTS: No acute hemorrhage, mass effect, midline shift, hydrocephalus, or acu te, large territorial infarct. No chronic infarct or focal atrophy. Normal brain volume and ventricul ar/sulcal size for age. Mild, nonspecific white matter disease seen in the cerebral hemispheres. Smal l lacunar infarcts seen in the head of the right caudate. CRANIOCERVICAL JUNCTION: No significant abnormality. ORBITS: No significant abnormality of visualized orbits. SINUSES / MASTOIDS: No significant abnormality of the visualized paranasal sinuses or mastoid air maribell ls. ADDITIONAL FINDINGS: None. IMPRESSION: 1. No focal mass, hemorrhage, hydrocephalus, or acute, large territorial infarct. Signer Name: Evan Tsang MD, III Signed: 12/04/2018 11:51 AM Workstation Name: [id number]
[2018-12-04 12:10] LABS: Albumin 3.5 g/dL (3.9-5); Calcium 9.1 mg/dL (8.4-10.2)
[2018-12-04] MEDS: MAXIPIME/NS 1 GM/100 ML 1 GM/100 ML BAG IV SCH ×2 (14:23→22:42)
[2018-12-04] MEDS ORDERED: APRESOLINE IV PRN (21:17)
[2018-12-04] MEDS: LOVENOX SUB-Q SCH (22:41)
[2018-12-05] MEDS ORDERED: VANCOMYCIN 1,250 MG in NACL 0.9% 250ML 250 ML IV SCH
[2018-12-05] MEDS: MAXIPIME/NS 1 GM/100 ML 1 GM/100 ML BAG IV SCH (05:31)
[2018-12-05] MEDS: LASIX IV SCH ×2 (06:05→17:51)
[2018-12-05] MEDS: HumaLOG SUB-Q SCH ×4 (07:30→22:31)
[2018-12-05] MEDS: ASPIRIN PO SCH (10:13)
[2018-12-05] MEDS: ALDACTONE PO SCH (10:13)
[2018-12-05] MEDS: PLAVIX PO SCH (10:13)
[2018-12-05] MEDS: LOPRESSOR PO SCH ×2 (10:13→21:58)
[2018-12-05] MEDS: MUCINEX ER PO SCH (10:13)
[2018-12-05] MEDS: PROTONIX PO SCH (10:13)
[2018-12-05] MEDS: SODIUM CHLORIDE FLUSH SYRINGE 10 ML IV SCH ×2 (10:14→22:33)
[2018-12-05] MEDS: RESTASIS 0.05% OP SCH ×2 (10:14→22:08)
[2018-12-05] MEDS: NON-FORMULARY (Dorzolamide Hcl/Timolol Maleat [Dorzolamide-Timolol Eye Drops] 1 DROP) OP SCH ×2 (10:14→22:08)
--- NOTE | 2018-12-05 11:06 | Progress Note ---
Assessment and Plan Assessment and plan: 73 YO Female with CAD S/P CABG 4 weeks ago, CKD, HTN, GERD, Mitral Valve Disease, GA, CHF, DM presents to ED for evaluation. Pt states that she has experienced pain in her chest over the past 2 days. Pt states that pain is 4- 5/10, substernal, intermittent, worsened with exertion, not relieved with rest, associated with shortness of breath. Pt also acknowledges palpations, dypsnea on exertion, decreased exercise tolerance, Orthopnea/PND. Pt see by her home health nurse, and her production assembly supervisor was notified. EMS was subsequently notified, and upon arrival the patient was found to have respiratory distress. Pt transported to [facility]. Pt seen and evaluated in ED and found to have angina, as well as symptom s consistent with CHF Decompensation. Pt admitted to telemetry. Cardiology consulted in ED. Pt denies fever, chills, NVD, Trauma, BRBPR, Productive cough, skin rash, or recent ill contacts. Prior admission on 11/14/18 reviewed. All listed medication reconciled at time of admission. cardiac hx s/p MV replacement (tissue valve) and TV repair (ring) October 12, 2018 Echo 11/09/2018: LVEF 31%, moderate RVE, sevee LAE, MY mean gradient 6.6 mm Hg, mild to moderate TR, moderately elevated RVSP CT Head: No acute pathology Acute Metabolic Encephalopathy- Unknown etiology-resolved Acute on chronic diastolic Congestive heart failure Respiratory Acidosis Hypercapenia Angina at rest s/p Recent PCI and valvular surgery ?pleuritic in nature DM TYPE 2 with Hyperglycemia Patchy consolidation in the chest ?PNA HTN GERD CKD 3- PRIOR HD Requirement AV BLOCK S/P PPM Nonrheumatic Mitral (valve) Stenosis Atherosclerotic Heart Disease Of [place] Coronary Artery History of stent stenosis of CX s/p CABG x 2 October 12, 2018 Carotid artery stenosis 50-60% right and left ICA 08/2018 Chronically elevated troponin - non-specific Plan Supportive care, CLINICALLY IMPROVED TODAY ?Underlying JUDY BIPAP QHS, OUTPATIENT JUDY STUDY continue CHF protocol management, i/o, diuresis, etc Continue empiric ABX, repeat cxr in am BLOOD CULTURES, no growth so far Echo to evaluate recent valve repair D/W CARDIOLOGY DVT/GI prophy History Interval history: Patient seen and examined, much improved today. Speak in the second eaten lunch. Hospitalist Physical - Physical exam Narrative exam: General appearance: Present: well-nourished, - EENT Eyes: Present: PERRL, EOM intact ENT: hearing intact, clear oral mucosa - Neck Neck: Present: normal ROM - Respiratory Respiratory effort: normal - Cardiovascular Rhythm: regular Heart Sounds: Present: S1 & S2, systolic murmur - Extremities Extremities: no ischemia, pulses intact, pulses symmetrical Extremity abnormal: edema (1+) Peripheral Pulses: within normal limits - Abdominal General gastrointestinal: soft, non-tender, non-distended, normal bowel sounds - Integumentary Integumentary: Present: clear, warm, dry - Psychiatric Psychiatric: Normal mood and affect - Neurologic Neurologic: CNII-XII intact awake alert and oriented 3 - Constitutional Vitals: Temp Pulse Resp BP Pulse Ox 97.0 F L 90 20 151/71 97 12/05/18 08:13 12/05/18 10:13 12/05/18 08:13 12/05/18 10:13 12/05/18 08:13 General appearance: Present: well-nourished, other (lethargic) Results - Labs CBC & Chem 7: 12/04/18 05:30 12/04/18 10:31 Labs: Laboratory Last Values WBC 6.0 K/mm3 (4.5-11.0) 12/04/18 05:30 RBC 3.91 M/mm3 (3.65-5.03) 12/04/18 05:30 Hgb 10.0 gm/dl (10.1-14.3) L 12/04/18 05:30 Hct 30.2 % (30.3-42.9) L 12/04/18 05:30 MCV 77 fl (79-97) L 12/04/18 05:30 MCH 26 pg (28-32) L 12/04/18 05:30 MCHC 33 % (30-34) 12/04/18 05:30 RDW 22.9 % (13.2-15.2) H 12/04/18 05:30 Plt Count 196 K/mm3 (140-440) 12/04/18 05:30 Lymph % (Auto) 18.1 % (13.4-35.0) 12/04/18 05:30 [place] % (Auto) 10.0 % (0.0-7.3) H 12/04/18 05:30 Eos % (Auto) 2.0 % (0.0-4.3) 12/04/18 05:30 Baso % (Auto) 0.9 % (0.0-1.8) 12/04/18 05:30 Lymph # 1.1 K/mm3 (1.2-5.4) L 12/04/18 05:30 [place] # 0.6 K/mm3 (0.0-0.8) 12/04/18 05:30 Eos # 0.1 K/mm3 (0.0-0.4) 12/04/18 05:30 Baso # 0.1 K/mm3 (0.0-0.1) 12/04/18 05:30 Seg Neutrophils % 69.0 % (40.0-70.0) 12/04/18 05:30 Seg Neutrophils # 4.2 K/mm3 (1.8-7.7) 12/04/18 05:30 PT 12.3 Sec. (12.2-14.9) 12/03/18 17:07 INR 0.94 (0.87-1.13) 12/03/18 17:07 APTT < 20.0 Sec. (24.2-36.6) L 12/03/18 17:07 POC ABG pH 7.289 (7.35-7.45) L 12/04/18 16:24 POC ABG pCO2 54.7 (35-45) H 12/04/18 16:24 POC ABG pO2 134 (80-105) H 12/04/18 16:24 POC ABG HCO3 26.2 (22-26 mml/L) 12/04/18 16:24 POC ABG Total CO2 28 (23-27mmol/L) 12/04/18 16:24 POC ABG O2 Sat 99 12/04/18 16:24 POC ABG Base Excess 0 ((-2) - (+3)mmol/L) 12/04/18 16:24 2 % 12/04/18 16:24 Sodium 147 mmol/L (137-145) H 12/04/18 10:31 Potassium 4.3 mmol/L (3.6-5.0) 12/04/18 10:31 Chloride 109.6 mmol/L (98-107) H 12/04/18 10:31 Carbon Dioxide 28 mmol/L (22-30) 12/04/18 10:31 14 mmol/L 12/04/18 10:31 BUN 18 mg/dL (7-17) H 12/04/18 10:31 1.1 mg/dL (0.7-1.2) 12/04/18 10:31 Estimated GFR 59 ml/min 12/04/18 10:31 16 % 12/04/18 10:31 Glucose 89 mg/dL (65-100) 12/04/18 10:31 POC Glucose 116 (70-105) H 12/05/18 07:38 6.7 % (4-6) H 12/03/18 18:39 Calcium 9.1 mg/dL (8.4-10.2) 12/04/18 10:31 Magnesium 1.90 mg/dL (1.7-2.3) 12/03/18 21:39 0.40 mg/dL (0.1-1.2) 12/04/18 10:31 AST 25 units/L (5-40) 12/04/18 10:31 ALT 17 units/L (7-56) 12/04/18 10:31 110 units/L (35-129) 12/04/18 10:31 0.119 ng/mL (0.00-0.029) H* 12/03/18 17:07 NT-Pro-B Natriuret Pep 6770 pg/mL (0-900) H 12/03/18 17:07 6.8 g/dL (6.3-8.2) 12/04/18 10:31 3.5 g/dL (3.9-5) L 12/04/18 10:31 1.1 % 12/04/18 10:31 Triglycerides 115 mg/dL (2-149) 12/03/18 17:07 Cholesterol 119 mg/dL (50-199) 12/03/18 17:07 66 mg/dL (50-130) 12/03/18 17:07 37 mg/dL (40-59) L 12/03/18 17:07 3.21 % 12/03/18 17:07 TSH 1.810 mlU/mL (0.270-4.200) 12/03/18 21:39 Free T4 1.11 ng/dL (0.76-1.46) 12/03/18 21:39 Yellow (Yellow) 12/03/18 17:05 Clear (Clear) 12/03/18 17:05 5.0 (5.0-7.0) 12/03/18 17:05 Ur Specific [place] 1.009 (1.003-1.030) 12/03/18 17:05 >500 mg/dL (Negative) 12/03/18 17:05 Neg mg/dL (Negative) 12/03/18 17:05 Neg mg/dL (Negative) 12/03/18 17:05 Sm (Negative) 12/03/18 17:05 Neg (Negative) 12/03/18 17:05 Neg (Negative) 12/03/18 17:05 < 2.0 mg/dL (<2.0) 12/03/18 17:05 Ur Leukocyte Esterase Neg (Negative) 12/03/18 17:05 < 1.0 /HPF (0.0-6.0) 12/03/18 17:05 1.0 /HPF (0.0-6.0) 12/03/18 17:05 U Epithel Cells (Auto) 2.0 /HPF (0-13.0) 12/03/18 17:05 Hyaline Casts 6 /LPF 12/03/18 17:05 Few /HPF 12/03/18 17:05 Active Medications - Current Medications Current Medications: Generic Name Dose Route Start Last Admin Trade Name Freq PRN Reason Stop Dose Admin Acetaminophen 650 mg 12/03/18 18:34 Tylenol PO Q4H PRN Pain MILD(1-3)/Fever >100.5/OCONNELL Albuterol 2.5 mg 12/03/18 18:34 Proventil IH Q4HRT PRN Shortness Of Breath Aspirin 325 mg 12/03/18 20:00 12/05/18 10:13 Aspirin PO 325 mg QDAY MABEL Administration Atorvastatin Calcium 40 mg 12/03/18 22:00 12/04/18 22:42 Lipitor PO 40 mg QHS MABEL Administration Clopidogrel Bisulfate 75 mg 12/04/18 10:00 12/05/18 10:13 Plavix PO 75 mg QDAY MABEL Administration Dextrose 50 ml 12/03/18 18:39 D50w (25gm) Syringe IV PRN PRN Hypoglycemia Enoxaparin Sodium 40 mg 12/03/18 22:00 12/04/18 22:41 Lovenox SUB-Q 40 mg QDAY@2200 MABEL Administration Furosemide 20 mg 12/04/18 06:00 12/05/18 06:05 Lasix IV 20 mg 0600,1800 MABEL Administration Guaifenesin 600 mg 12/04/18 10:00 12/05/18 10:13 Mucinex Er PO 600 mg DAILY [facility] Administration Hydralazine HCl 5 mg 12/04/18 21:17 Apresoline IV Q4HR PRN SBP>175 Vancomycin HCl 1,500 mg/ 530 mls @ 333.333 mls/hr 12/05/18 12:00 Sodium Chloride IV Q24H MABEL Cefepime HCl 2 gm in 100 mls @ 200 mls/hr 12/05/18 18:00 Maxipime/Ns 2 Gm/100 Ml IV Q12H [facility] Insulin Human Lispro 0 unit 12/05/18 07:30 12/05/18 07:30 Humalog SUB-Q Not Given QACHS [facility] Protocol Metoprolol Tartrate 25 mg 12/03/18 22:00 12/05/18 10:13 Lopressor PO 25 mg Q12HR [facility] Administration Miscellaneous Medication 1 drop 12/03/18 22:00 12/05/18 10:14 Dorzolamide Hcl/Timolol Maleat [Dorzolamide-Timolol Eye Drops] OP 1 drop BID MABEL Administration Miscellaneous Medication 1 drops 12/03/18 22:00 12/05/18 10:14 Restasis 0.05% OP 1 drops BID [facility] Administration Morphine Sulfate 2 mg 12/03/18 18:34 Morphine IV Q4H PRN Pain, Moderate (4-6) Ondansetron HCl 4 mg 12/03/18 18:34 Zofran IV Q8H PRN Nausea And Vomiting Oxycodone/Acetaminophen 1 tab 12/03/18 18:34 Percocet 5/325 PO Q6H PRN Pain, Moderate (4-6) Pantoprazole Sodium 40 mg 12/04/18 10:00 12/05/18 10:13 Protonix PO 40 mg QDAY MABEL Administration Sodium Chloride 10 ml 12/03/18 22:00 12/05/18 10:14 Sodium Chloride Flush Syringe 10 Ml IV 10 ml BID MABEL Administration Sodium Chloride 10 ml 12/03/18 18:34 Sodium Chloride Flush Syringe 10 Ml IV PRN PRN LINE FLUSH Spironolactone 25 mg 12/04/18 10:00 12/05/18 10:13 Aldactone PO 25 mg QDAY MABEL Administration
--- NOTE | 2018-12-05 11:13 | Progress Note ---
Assessment and Plan 1. Chronic Kidney Disease Required transient HD in the past 2. Atrioventricular Block, Second Degree s/p PPM Normal function 11/22/2018 3. Essential (primary) Hypertension 4. Type 2 Diabetes Mellitus Without Complications 5. Nonrheumatic Mitral (valve) Stenosis s/p MV replacement (tissue valve) and TV repair (ring) October 12, 2018 Echo 11/09/2018: LVEF 31%, moderate RVE, sevee LAE, MY mean gradient 6.6 mm Hg, mild to moderate TR, moderately elevated RVSP 6. Atherosclerotic Heart Disease Of [place] Coronary Artery History of stent stenosis of CX s/p CABG x 2 October 12, 2018 7. Carotid artery stenosis 50-60% right and left ICA 08/2018 8. Chronically elevated troponin - non-specific 9. Chest pain - reason for admission ECG showing sequential AV pacing - no changes from previous CXR showing patchy lung consolidation 10. Altered mental status Resolved Recommendations: Continue empiric Abx therapy for patchy lung consolidation noted on CXR No further cardiac work-up is needed Outpatient follow-up with me Subjective Date of service: 12/05/18 Principal diagnosis: Shortness of breath Interval history: Patient is more awake this morning Patient states that she is feeling better She denies chest pain or SOB Objective Vital Signs Temp Pulse Resp BP Pulse Ox 12/05/18 10:13 90 151/71 12/05/18 08:13 97.0 F L 90 20 151/71 97 12/05/18 07:55 94 12/05/18 04:55 98.1 F 93 H 18 110/49 100 12/05/18 00:16 98.3 F 94 H 18 137/77 100 12/04/18 23:13 91 H 12/04/18 19:33 98.0 F 90 18 152/75 100 12/04/18 19:22 24 12/04/18 16:56 99.2 F 91 H 18 139/90 98 - Physical Examination Neck: Positive: neck supple Cardiac: Positive: Reg Rate and Rhythm Lungs: Positive: Normal Exam Abdomen: Positive: Soft Extremities: Present: +1 Edema - Labs and Meds Cardiac Enzymes 12/04/18 Range/Units 10:31 AST 25 (5-40) units/L Comprehensive Metabolic Panel 12/04/18 Range/Units 10:31 Sodium 147 H (137-145) mmol/L Potassium 4.3 (3.6-5.0) mmol/L Chloride 109.6 H (98-107) mmol/L Carbon Dioxide 28 (22-30) mmol/L BUN 18 H (7-17) mg/dL Creatinine 1.1 (0.7-1.2) mg/dL Glucose 89 (65-100) mg/dL Calcium 9.1 (8.4-10.2) mg/dL AST 25 (5-40) units/L ALT 17 (7-56) units/L Alkaline Phosphatase 110 (35-129) units/L Total Protein 6.8 (6.3-8.2) g/dL Albumin 3.5 L (3.9-5) g/dL
[2018-12-05] MEDS: VANCOMYCIN 1,500 MG in NACL 0.9% 500 ML 500 ML IV SCH (13:30)
[2018-12-05] MEDS: MAXIPIME/NS 2 GM/100 ML 2 GM/100 ML BAG IV SCH (17:51)
[2018-12-05] MEDS ORDERED: MAXIPIME/NS 1 GM/100 ML 1 GM/100 ML BAG IV SCH (18:00)
[2018-12-05] MEDS ORDERED: COUMADIN PO SCH (18:00)
[2018-12-05] MEDS: LOVENOX SUB-Q SCH (21:59)
[2018-12-06 05:42] LABS: INR 1.34 (0.87-1.13)
[2018-12-06] MEDS: MAXIPIME/NS 2 GM/100 ML 2 GM/100 ML BAG IV SCH (06:00)
[2018-12-06] MEDS: LASIX IV SCH (06:00)
[2018-12-06] MEDS: HumaLOG SUB-Q SCH ×2 (08:29→11:53)
--- NOTE | 2018-12-06 08:50 | XRay Report ---
CHEST 1 VIEW INDICATION: PNEUMONIA. COMPARISON: 12/03/2018 FINDINGS: Support devices: 2-lead pacemaker device remains in the same position. Heart: Mild cardiomegaly is stable. Lungs/Pleura: Mild pulmonary venous congestion and small pleural effusions are stable. Focal linear a irspace opacities in both lower lung zones are stable and probably represent scarring or atelectasis. No convincing infiltrate. Additional findings: None. IMPRESSION: No significant change in mild CHF. Bilateral lower lobe lung opacities most consistent with segmenta l atelectasis. Signer Name: Chucky Moore Jr, MD Signed: 12/06/2018 8:46 AM Workstation Name: [id number]
[2018-12-06] MEDS: MUCINEX ER PO SCH (09:24)
[2018-12-06] MEDS: ASPIRIN PO SCH (09:24)
[2018-12-06] MEDS: ALDACTONE PO SCH (09:24)
[2018-12-06] MEDS: LOPRESSOR PO SCH (09:25)
[2018-12-06] MEDS: PROTONIX PO SCH (09:25)
[2018-12-06] MEDS: SODIUM CHLORIDE FLUSH SYRINGE 10 ML IV SCH (09:26)
--- NOTE | 2018-12-06 09:50 | Progress Note ---
Assessment and Plan Chest pain - reason for admission ECG showing sequential AV pacing CXR showing patchy lung consolidation Altered mental status -resolved Chronic Kidney Disease Required transient HD in the past Atrioventricular Block, Second Degree s/p PPM Normal function by interrogation 11/22/2018 Paroxysmal atrial fibrillation seen on PPM interrogation initiated on warfarin. Hypertension Diabetes Mellitus Nonrheumatic Mitral (valve) Stenosis s/p MV replacement (tissue valve) and TV repair (ring) October 12, 2018 Echo 12/04/2018: LVEF 20-25% Hx of CAD s/p CABG x 2 October 12, 2018 Carotid artery stenosis 50-60% right and left ICA 08/2018 Chronically elevated troponin - non-specific Recommend: Conservative cardiac management. Patient will follow up December 10 for an INR check. Follow up with Dr Sanchez as scheduled December 27 at . Subjective Date of service: 12/06/18 Principal diagnosis: Shortness of breath Interval history: Patient has no complaints. Objective Vital Signs Temp Pulse Resp BP Pulse Ox 12/06/18 09:25 89 153/71 12/06/18 09:24 89 153/71 12/06/18 07:44 98.1 F 18 153/71 12/06/18 04:03 97.8 F 90 20 136/72 95 12/06/18 00:15 88 18 12/05/18 23:55 98.1 F 91 H 20 129/51 90 12/05/18 21:58 91 H 142/69 12/05/18 21:27 96 12/05/18 21:09 98.6 F 50 L 19 153/72 95 12/05/18 19:46 92 H 12/05/18 16:46 98.6 F 91 H 22 142/69 98 12/05/18 11:21 98.4 F 92 H 18 124/48 100 12/05/18 10:13 90 151/71 12/05/18 10:00 92 H - Physical Examination General: No Apparent Distress HEENT: Positive: PERRL Neck: Positive: neck supple Cardiac: Positive: Other (paced) Lungs: Positive: Decreased Breath Sounds Neuro: Positive: Grossly Intact Abdomen: Positive: Soft Extremities: Present: +1 Edema - Labs and Meds Coagulation 12/06/18 Range/Units 05:08 PT 16.2 H (12.2-14.9) Sec. INR 1.34 H (0.87-1.13)
[2018-12-06] MEDS: NON-FORMULARY (Dorzolamide Hcl/Timolol Maleat [Dorzolamide-Timolol Eye Drops] 1 DROP) OP SCH (10:00)
[2018-12-06] MEDS: RESTASIS 0.05% OP SCH (10:00)
--- NOTE | 2018-12-06 11:55 | Discharge Summary ---
Providers - Providers Date of Admission: 12/03/18 18:34 Attending physician: STEPH SALEH MD 12/03/18 18:45 Consult to Physician [CONS] Routine Comment: DR MERCED MCCRACKEN W/DR TORRES @[id number] Consulting Provider: JESUS ALBERTO GUTIERREZ Physician Instructions: Reason For Exam: CHF 12/05/18 08:10 Consult to PICC Line RN [CONS] Routine Reason For Exam: midline placement Type Line:: Midline Primary care physician: STEPAN NEWBY Hospitalization Condition: Stable Hospital course: 73 YO Female with CAD S/P CABG 4 weeks ago, CKD, HTN, GERD, Mitral Valve Disease, [place], CHF, DM presents to ED for evaluation. Pt states that she has experienced pain in her chest over the past 2 days. Pt states that pain is 4- 5/10, substernal, intermittent, worsened with exertion, not relieved with rest, associated with shortness of breath. Pt also acknowledges palpations, dypsnea on exertion, decreased exercise tolerance, Orthopnea/PND. Pt see by her home health nurse, and her health care consultant was notified. EMS was subsequently notified, and upon arrival the patient was found to have respiratory distress. Pt transported to [facility]. Pt seen and evaluated in ED and found to have angina, as well as symptoms consistent with CHF Decompensation. Pt admitted to telemetry. Cardiology consulted in ED. Pt denies fever, chills, NVD, Trauma, BRBPR, Productive cough, skin rash, or recent ill contacts. Prior admission on 11/14/18 reviewed. All listed medication reconciled at time of admission. cardiac hx s/p MV replacement (tissue valve) and TV repair (ring) October 12, 2018 Echo 11/09/2018: LVEF 31%, moderate RVE, sevee LAE, MY mean gradient 6.6 mm Hg, mild to moderate TR, moderately elevated RVSP CT Head: No acute pathology Acute Metabolic Encephalopathy- Unknown etiology-resolved Acute on chronic diastolic Congestive heart failure Respiratory Acidosis Hypercapenia Angina at rest s/p Recent PCI and valvular surgery ?pleuritic in nature DM TYPE 2 with Hyperglycemia Patchy consolidation in the chest ?PNA HTN GERD CKD 3- PRIOR HD Requirement AV BLOCK S/P PPM Nonrheumatic Mitral (valve) Stenosis Atherosclerotic Heart Disease Of [place] Coronary Artery History of stent stenosis of CX s/p CABG x 2 October 12, 2018 Carotid artery stenosis 50-60% right and left ICA 08/2018 Chronically elevated troponin - non-specific Plan Supportive care, CLINICALLY IMPROVED TODAY ?Underlying JUDY BIPAP QHS, OUTPATIENT JUDY STUDY continue CHF protocol management, i/o, diuresis, etc Continue empiric ABX, repeat cxr in am BLOOD CULTURES, no growth so far Echo to evaluate recent valve repair D/W CARDIOLOGY DVT/GI prophy Disposition: DC/TX-06 HOME UNDER HOME HLTH Time spent for discharge: 35 mins Exam - Constitutional Vitals: Temp Pulse Resp BP Pulse Ox 98.1 F 89 18 153/71 95 12/06/18 07:44 12/06/18 10:00 12/06/18 10:00 12/06/18 09:25 12/06/18 10:00 Plan Activity: advance as tolerated, fall precautions Diet: low fat, low salt, diabetic Special Instructions: restrict fluid intake to (1000cc/day), home health RN Follow up with: HOMERO TREADWELL MD [Staff Physician] - 7 Days LEHIGH REENA ENGLISH MD [Referring] - 3-5 Days MARGARET WHEELER MD [Staff Physician] - 7 Days Forms: Warfarin Discharge Instruction Prescriptions: Warfarin [Coumadin] 5 mg PO DAILY@1700 #30 tablet
[2018-12-06] MEDS: VANCOMYCIN 1,500 MG in NACL 0.9% 500 ML 500 ML IV SCH (12:04)
[2018-12-06 14:47] VITALS: BP 142/64
== END 2018-12-06 15:00 | disposition home health service (06) | DRG 291 ==
LOC: ED 16:48 → 4A 18:34
PROVIDERS: ADMIT Internal Medicine; ATTEND Internal Medicine
PROC: 4A033R1 Measurement of Arterial Saturation, Peripheral, Percutaneous Approach (ICD-10-PCS; 2018-12-04)
PROC: 4B02XSZ Measurement of Cardiac Pacemaker, External Approach (ICD-10-PCS; principal; 2018-12-05)
PROC: 05HY33Z Insertion of Infusion Device into Upper Vein, Percutaneous Approach (ICD-10-PCS; 2018-12-05)
PROC: 5A09357 Assistance with Respiratory Ventilation, Less than 24 Consecutive Hours, Continuous Positive Airway Pressure (ICD-10-PCS; 2018-12-06)
DX: I13.0 Hypertensive heart and chronic kidney disease with heart failure and stage 1 through stage 4 chronic kidney disease, or unspecified chronic kidney disease (principal); I50.33 Acute on chronic diastolic (congestive) heart failure; G93.41 Metabolic encephalopathy; J18.9 Pneumonia, unspecified organism; E87.2 Acidosis; E11.22 Type 2 diabetes mellitus with diabetic chronic kidney disease; N18.3 Chronic kidney disease, stage 3 (moderate); I44.1 Atrioventricular block, second degree; I05.0 Rheumatic mitral stenosis; I65.23 Occlusion and stenosis of bilateral carotid arteries; E11.65 Type 2 diabetes mellitus with hyperglycemia; I48.0 Paroxysmal atrial fibrillation; I25.118 Atherosclerotic heart disease of native coronary artery with other forms of angina pectoris; K21.9 Gastro-esophageal reflux disease without esophagitis; Z95.1 Presence of aortocoronary bypass graft; I25.2 Old myocardial infarction; Z83.3 Family history of diabetes mellitus; Z82.49 Family history of ischemic heart disease and other diseases of the circulatory system; Z95.5 Presence of coronary angioplasty implant and graft; Z79.4 Long term (current) use of insulin; Z95.0 Presence of cardiac pacemaker; Z79.899 Other long term (current) drug therapy
CPT/HCPCS: 36415; 36600; 70450; 71045; 80053; 80061; 81001; 82803; 82962; 83036; 83735; 83880; 84439; 84443; 84484; 85025; 85610; 85730; 87040; 93005; 93010; 93306; 94640; 94660; 94760; 96374; G0378; A9270-GY; J0692; J1650; J1815; J1940; J3370; J7040; J7050